=== PATIENT | female | born 1965 | race Hispanic/Latino ===

== ENCOUNTER 2017-10-26 20:30 | Emergency (ER) | payer MEDICARE ==
[2017-10-26 21:48] VITALS: BP 129/68
[2017-10-26 22:05] LABS: Basophils # (Auto) 0.1 K/mm3 (0.0-0.1); Basophils % (Auto) 0.6 % (0.0-1.8); Eosinophils # (Auto) 0.3 K/mm3 (0.0-0.4); Eosinophils % (Auto) 1.6 % (0.0-4.3); Hematocrit 45.3 % (30.3-42.9); Hemoglobin 15.3 gm/dl (10.1-14.3); Lymphocytes # (Auto) 4.1 K/mm3 (1.2-5.4); Lymphocytes % (Auto) 24.8 % (13.4-35.0); Mean Corpuscular HGB Conc 34 % (30-34); Mean Corpuscular Hemoglobin 31 pg (28-32); Mean Corpuscular Volume 90 fl (79-97); Monocytes # (Auto) 0.7 K/mm3 (0.0-0.8); Monocytes % (Auto) 4.4 % (0.0-7.3); Platelet Count 303 K/mm3 (140-440); Red Blood Count 5.01 M/mm3 (3.65-5.03); Red Cell Distribution Width 13.4 % (13.2-15.2)
[2017-10-26 22:32] LABS: Alanine Aminotransferase 20 units/L (7-56); Albumin 3.9 g/dL (3.9-5); BUN/Creatinine Ratio 30; Blood Urea Nitrogen 12 mg/dL (7-17); Calcium 9.2 mg/dL (8.4-10.2); Hemolysis Index 1
[2017-10-27] MEDS ORDERED: NACL 0.9% 500 ML 500 ML IV ONE (04:07)
--- NOTE | 2017-10-27 04:08 | Emergency Department Report ---
HPI - General Chief Complaint: Dizziness Time Seen by Provider: 10/27/17 04:00 - HPI HPI: The patient is a 52-year-old female who presents for evaluation of dizziness. The patient reports chronic episodes of dizziness for many years, and recurrence of dizziness for the past 3 months. She states that 5 days ago she experienced worsening of dizziness, currently severe, exacerbated with position changes, improved with supine positioning and rest, The patient denies fever, headache, neck pain, paresthesias, focal motor weakness, blurry vision, ear pain , tinnitus, chest pain, hemoptysis, dyspnea, abdominal pain, confusion or altered mental status, or recent URI or diarrhea. ED Past Medical Hx - Past Medical History Hx Hypertension: Yes (22YRS) Hx Congestive Heart Failure: No Hx Diabetes: Yes Hx Deep Vein Thrombosis: Yes Hx Pulmonary Embolism: Yes Hx GERD: Yes Hx Psychiatric Treatment: Yes (depression) Hx Asthma: No Hx COPD: No Additional medical history: Hypercholesterolemia - Surgical History Hx Pacemaker: No Additional Surgical History: Hx. , L AKA - Social History Smoking Status: Current Every Day Smoker Substance Use Type: None - Medications Home Medications: Home Medications Medication Instructions Recorded Confirmed Last Taken Type Docusate Sodium [Colace CAP] 100 mg PO BID #1 capsule 07/20/16 07/27/16 Unknown Rx Famotidine [Pepcid] 20 mg PO BID #60 tablet 07/20/16 07/28/16 07/23/16 Rx Gabapentin [Neurontin] 300 mg PO Q8HR #90 capsule 07/20/16 07/28/16 07/27/16 Rx HYDROcodone/APAP 7.5-325 [[place] 1 each PO Q6H PRN #30 tablet 07/20/16 07/28/16 07/24/16 Rx 7.5-325 mg TAB] Hydrochlorothiazide [HCTZ] 25 mg PO QDAY #30 tablet 07/20/16 07/28/16 07/27/16 Rx Lisinopril [Zestril TAB] 20 mg PO QDAY #30 tablet 07/20/16 07/28/16 07/28/16 Rx Rivaroxaban [Xarelto] 15 mg PO BIDDIAB #5 tablet 07/20/16 07/28/16 07/26/16 Rx Sennosides Tab [Senokot] 8.6 mg PO Q12H PRN #1 tablet 07/20/16 07/28/16 Unknown Rx glyBURIDE [Diabeta] 10 mg PO BIDDIAB #60 tablet 07/20/16 07/28/16 07/27/16 Rx Clindamycin [Clindamycin CAP] 450 mg PO TID 07/27/16 07/27/16 Unknown History Rivaroxaban [Xarelto] 20 mg PO QDAY 07/27/16 07/28/16 07/26/16 History Meclizine [Antivert] 25 mg PO TID PRN #20 tablet 10/27/17 Unknown Rx ED Review of Systems ROS: Stated complaint: DIZZINESS Other details as noted in HPI Constitutional: reports dizziness denies: fever ENT: denies: throat or neck pain Respiratory: denies: cough, shortness of breath Cardiovascular: denies: chest pain Endocrine: denies unexplained weight loss or gain Gastrointestinal: denies: abdominal pain, nausea Genitourinary: denies: dysuria Musculoskeletal: denies: leg swelling Skin: denies: rash Neurological: denies: headache Hematological/Lymphatic: denies: easy bleeding or easy bruising Psych: denies sadness or hopelessness Physical Exam - Physical Exam Vital Signs: Vital Signs 10/26/17 10/27/17 21:43 04:04 Temperature 97.8 F Pulse Rate 72 Respiratory 16 20 Rate Blood Pressure 129/68 O2 Sat by Pulse 94 98 Oximetry Physical Exam: General: well-nourished, well-developed, no acute distress Head: Normocephalic, atraumatic Eyes: normal sclera, PERRL, EOM intact ENT: Mucous membranes are pale and dry Neck: trachea midline, neck supple, No neck stiffness, no cervical adenopathy Respiratory: Breath sounds equal bilaterally, no wheezing, rales, or rhonchi Cardio: S1 and S2 present, no murmurs, rubs, gallops, capillary refill is delayed Abdomen: Normoactive bowel sounds, soft abdomen, no rigidity, no guarding or rebound tenderness Musc: No pitting edema Skin: No rash Neuro: alert oriented x4, normal cognition, speech normal, no facial drooping, no uvula or tongue deviation on protrusion, no deficit with rotation of neck or shoulder shrug, no obvious gross motor deficit in the upper or lower extremities with flexion or extension at the shoulder, elbow, wrist, hip, knee, or ankle bilaterally, no obvious gross sensation deficit to crude touch or 2 pt discrimination, 2+ symmetric reflexes on DTR testing, no coordination deficit with [id number] or yehs-[id number] testing, Babinski downgoing, patient able to to ambulate without abnormal gait Psych: Normal affect ED Course Vital Signs 10/26/17 10/27/17 21:43 04:04 Temperature 97.8 F Pulse Rate 72 Respiratory 16 20 Rate Blood Pressure 129/68 O2 Sat by Pulse 94 98 Oximetry ED Medical Decision Making - Lab Data Result diagrams: 10/26/17 21:51 10/26/17 21:51 - Medical Decision Making The patient was seen and examined by myself. The patient is placed on a nurse monitoring and continuous pulse ox. On initial evaluation, the patient was found to be in no distress. Evaluation orders were placed. The patient is given 2 L normal saline fluid bolus for treatment of dehydration. Lab results reveal a mildly elevated glucose of 144, and elevated hemoglobin and hematocrit , consistent with hemoconcentration and exam findings of dehydration, and otherwise labs were grossly unremarkable. The patient was reevaluated and reported that their symptoms were markedly improved. The patient is stable for discharge with outpatient follow-up. The patient is given follow-up and return instructions. The patient expressed understanding and agreed with the plan. The patient is discharged in stable condition. Critical care attestation.: If time is entered above; I have spent that time in minutes in the direct care of this critically ill patient, excluding procedure time. ED Disposition Clinical Impression: Dehydration, Orthostatic dizziness, Acute hyperglycemia Disposition: - TO HOME OR SELFCARE Is pt being admited?: No Does the pt Need Aspirin: No Condition: Stable Instructions: Dehydration (ED), Dizziness (ED), Diabetic Hyperglycemia (ED) Prescriptions: Meclizine [Antivert] 25 mg PO TID PRN #20 tablet PRN Reason: Vertigo Referrals: TAE GAMA MD [Primary Care Provider] - 3-5 Days Time of Disposition: 04:08
== END 2017-10-27 06:03 | disposition home or self-care (01) ==
LOC: ED 20:30
DX: E86.0 Dehydration (principal); E11.65 Type 2 diabetes mellitus with hyperglycemia; R42 Dizziness and giddiness; I10 Essential (primary) hypertension; F32.9 Major depressive disorder, single episode, unspecified; K21.9 Gastro-esophageal reflux disease without esophagitis; F17.200 Nicotine dependence, unspecified, uncomplicated; Z86.718 Personal history of other venous thrombosis and embolism; Z86.711 Personal history of pulmonary embolism
CPT/HCPCS: 36415; 80053; 85025; 93005; 93010; 96360; 99284; J7040

== ENCOUNTER 2019-08-18 08:53 | Inpatient (IN) | payer MEDICARE ==
[2019-08-18] MEDS ORDERED: ALBUTEROL 2.5 MG/3 ML NEBU IH ONE (09:03)
[2019-08-18] MEDS ORDERED: MAGNESIUM SULFATE 2 GM/50 ML BAG IV ONE (09:03)
[2019-08-18] MEDS ORDERED: IPRATROPIUM 0.02% NEBU 2.5 ML IH ONE (09:03)
--- NOTE | 2019-08-18 09:15 | Emergency Department Report ---
ED Shortness of Breath HPI - General Stated Complaint: RAFFAELE Time Seen by Provider: 08/18/19 09:02 Source: patient Mode of arrival: Stretcher Limitations: No Limitations - History of Present Illness Initial Comments: 54-year-old female with a past medical history of COPD, PE (on Xarelto and compliant as per pt), hypertension, diabetes, anxiety, and other psychiatric disorder presents to the hospital with shortness of breath. EMS reports that patient in respiratory distress on the scene and also somewhat combative. Glucose 217. She received Versed 2.5 mg, Solu-Medrol 125 mg, and albuterol 10 mg. Pt denies home oxygen use. She initially presents in respiratory distress, with audible wheezing, and room air saturation of 42%. Patient placed on supplemental oxygen via nonrebreather then BiPAP after arrival. She has paperwork from recent visit to [facility] COPD exacerbation. She was duo nebs, Levaquin, and prednisone. That was on BiPAP for about 15 minutes before taking it off. She is more alert and responsive. BiPAP discontinued and patient provided additional treatment including nebs. States she's been short of breath for "a while". Has cough prodcutive of yellow and clear sputum. Denies fever. Has chest pain "sometimes". Repeatedly asking for water. Pt states she has not yet filled her recently prescribed medications. She is unsure if she's been intubated in the past. - Related Data Home Medications Medication Instructions Recorded Confirmed Last Taken Clindamycin [Clindamycin CAP] 450 mg PO TID 07/27/16 07/27/16 Unknown Rivaroxaban [Xarelto] 20 mg PO QDAY 07/27/16 07/28/16 07/26/16 Previous Rx's Medication Instructions Recorded Last Taken Type Docusate Sodium [Colace CAP] 100 mg PO BID #1 capsule 07/20/16 Unknown Rx Famotidine [Pepcid] 20 mg PO BID #60 tablet 07/20/16 07/23/16 Rx Gabapentin 300 mg PO Q8HR #90 capsule 07/20/16 07/27/16 Rx HYDROcodone/APAP 7.5-325 [[place] 1 each PO Q6H PRN #30 tablet 07/20/16 07/24/16 Rx 7.5-325 mg TAB] Lisinopril [Zestril TAB] 20 mg PO QDAY #30 tablet 07/20/16 07/28/16 Rx Rivaroxaban [Xarelto] 15 mg PO BIDDIAB #5 tablet 07/20/16 07/26/16 Rx Sennosides Tab [Senokot] 8.6 mg PO Q12H PRN #1 tablet 07/20/16 Unknown Rx glyBURIDE [Diabeta] 10 mg PO BIDDIAB #60 tablet 07/20/16 07/27/16 Rx hydroCHLOROthiazide [HCTZ] 25 mg PO QDAY #30 tablet 07/20/16 07/27/16 Rx Meclizine [Antivert] 25 mg PO TID PRN #20 tablet 10/27/17 Unknown Rx Allergies Allergy/AdvReac Type Severity Reaction Status Date / Time No Known Allergies Allergy Verified 08/18/19 10:10 ED Review of Systems ROS: Stated complaint: RAFFAELE Other details as noted in HPI Comment: All other systems reviewed and negative ED Past Medical Hx - Past Medical History Hx Hypertension: Yes (22YRS) Hx Congestive Heart Failure: No Hx Diabetes: Yes Hx Deep Vein Thrombosis: Yes Hx Pulmonary Embolism: Yes Hx GERD: Yes Hx Psychiatric Treatment: Yes (depression) Hx Asthma: No Hx COPD: No Additional medical history: Hypercholesterolemia - Surgical History Hx Pacemaker: No Additional Surgical History: Hx. , L AKA - Social History Smoking Status: Current Every Day Smoker Substance Use Type: None - Medications Home Medications: Home Medications Medication Instructions Recorded Confirmed Last Taken Type Docusate Sodium [Colace CAP] 100 mg PO BID #1 capsule 07/20/16 07/27/16 Unknown Rx Famotidine [Pepcid] 20 mg PO BID #60 tablet 07/20/16 07/28/16 07/23/16 Rx Gabapentin 300 mg PO Q8HR #90 capsule 07/20/16 07/28/16 07/27/16 Rx HYDROcodone/APAP 7.5-325 [[place] 1 each PO Q6H PRN #30 tablet 07/20/16 07/28/16 07/24/16 Rx 7.5-325 mg TAB] Lisinopril [Zestril TAB] 20 mg PO QDAY #30 tablet 07/20/16 07/28/16 07/28/16 Rx Rivaroxaban [Xarelto] 15 mg PO BIDDIAB #5 tablet 07/20/16 07/28/16 07/26/16 Rx Sennosides Tab [Senokot] 8.6 mg PO Q12H PRN #1 tablet 07/20/16 07/28/16 Unknown Rx glyBURIDE [Diabeta] 10 mg PO BIDDIAB #60 tablet 07/20/16 07/28/16 07/27/16 Rx hydroCHLOROthiazide [HCTZ] 25 mg PO QDAY #30 tablet 07/20/16 07/28/16 07/27/16 R x Clindamycin [Clindamycin CAP] 450 mg PO TID 07/27/16 07/27/16 Unknown History Rivaroxaban [Xarelto] 20 mg PO QDAY 07/27/16 07/28/16 07/26/16 History Meclizine [Antivert] 25 mg PO TID PRN #20 tablet 10/27/17 Unknown Rx ED Physical Exam - General Limitations: Altered Mental Status (intially) - Other Other exam information: General: Positive respiratory distress Head: Atraumatic Eyes: normal appearance ENT: Moist mucous membranes Neck: Normal appearance, no midline tenderness Chest: Tachypnea, wheezing, accessory muscle use CV: Regular rate and rhythm Abdomen: Soft, normal bowel sounds, nontender, nondistended, no rebound or guarding Back: Normal inspection Extremity: Normal inspection infection, left AKA Neuro: Initially lethargic but then became alert with oxygenation, no facial asymmetry, speech clear, no gross motor sensory deficit Psych: Appropriate behavior Skin: No rash ED Course Vital Signs 08/18/19 08/18/19 09:16 09:22 Temperature 98.3 F Pulse Rate 147 H Pulse Rate [ 80 Left Lower Lobe ] Pulse Rate [ 98 H Posterior Right Lower Lobe] Respiratory 24 Rate Respiratory 32 H Rate [Left Lower Lobe] Respiratory 35 H Rate [Posterior Right Lower Lobe] Blood Pressure 150/82 O2 Sat by Pulse 44 L Oximetry - Reevaluation(s) Reevaluation #1: 08/18/19 10:17 hr now 119, sinus tach, breathing is improved. able to speak in sentences. - Consultations Consultation #1: 08/18/19 10:19 Case d/w Dr Gonzalez regarding elevated trop. no cp or acute ekg changes. consult ordered - ABG Interpretation Ph: 7.381 PCO2: 37 PO2: 59 Bicarbonate: 22 Interpretation: other (hypoxia) ED Medical Decision Making - Lab Data Result diagrams: 08/18/19 09:18 08/18/19 09:18 Lab Results 08/18/19 08/18/19 08/18/19 Range/Units 09:18 09:18 10:12 WBC 35.6 H (4.5-11.0) K/mm3 RBC 4.58 (3.65-5.03) M/mm3 Hgb 11.9 (10.1-14.3) gm/dl Hct 39.0 (30.3-42.9) % MCV 85 (79-97) fl MCH 26 L (28-32) pg MCHC 31 (30-34) % RDW 15.8 H (13.2-15.2) % Plt Count 563 H (140-440) K/mm3 Lymph # Checkout Operator VBG pH 7.348 (7.320-7.420) Sodium 141 (137-145) mmol/L Potassium 3.9 (3.6-5.0) mmol/L Chloride 101.1 (98-107) mmol/L Carbon Dioxide 19 L (22-30) mmol/L Anion Gap 25 mmol/L BUN 20 H (7-17) mg/dL Creatinine 0.8 (0.7-1.2) mg/dL Estimated GFR > 60 ml/min BUN/Creatinine Ratio 25 % Glucose 441 H (65-100) mg/dL Calcium 8.8 (8.4-10.2) mg/dL Troponin T 0.275 H* (0.00-0.029) ng/mL NT-Pro-B Natriuret Pep 2047 H (0-900) pg/mL Triglycerides 170 H (2-149) mg/dL Cholesterol 155 (50-199) mg/dL LDL Cholesterol Direct 99 (50-130) mg/dL HDL Cholesterol 45 (40-59) mg/dL Cholesterol/HDL Ratio 3.44 % - EKG Data -: EKG Interpreted by [place] EKG shows normal: sinus rhythm Rate: tachycardia (119) - EKG Data When compared to previous EKG there are: no significant change - Radiology Data Radiology results: report reviewed CHEST 1 VIEW INDICATION / CLINICAL INFORMATION: sob. COMPARISON: Chest radiograph 07/22/2016 FINDINGS: SUPPORT DEVICES: None. HEART / MEDIASTINUM: No significant abnormality. LUNGS / PLEURA: Left basilar airspace opacity. The right lung is clear. No pneumothorax. ADDITIONAL FINDINGS: No significant additional findings. IMPRESSION: 1. Left basilar pulmonary opacity worrisome for pneumonia in the appropriate clinical setting. A superimposed small left pleural effusion is possible. Recommend follow-up radiograph in 6-10 weeks to ensure resolution. - Medical Decision Making copd exacerbation with significant hypoxia and alteration of mental status upon arrival Mental status and symptoms quickly improved with supplemental oxygenation and a brief duration of BiPAP treatment Persistent hypoxic and wheezing after albuterol, Solu-Medrol, and magnesium. No signs of CO2 retention ABG. Elevated trop, ASA provided Unchanged EKG, cardiology consulted no cp in ed states compliant with xarelto Leukocytosis As per medical record history of leukocytosis in the past Blood cultures provided, Rocephin and azithromycin for infiltrate on x-ray Also possibility of CHF given her elevated BNP and effusion possible recent steroid use hospitalist to admit - Differential Diagnosis COPD, CHF, hypertension Critical Care Time: No Critical care attestation.: If time is entered above; I have spent that time in minutes in the direct care of this critically ill patient, excluding procedure time. ED Disposition Clinical Impression: Pneumonia, COPD exacerbation, Leukocytosis, Hyperglycemia, Pleural effusion, Hypoxia, Elevated troponin, Anticoagulant long-term use, Hx of pulmonary embolus Disposition: -09 OP ADMIT IP TO THIS HOSP Is pt being admited?: Yes Condition: Stable Time of Disposition: 10:54 (Dr Aguilar/hosp)
[2019-08-18 09:39] LABS: Mean Corpuscular HGB Conc 31 % (30-34); Mean Corpuscular Volume 85 fl (79-97); Platelet Count 563 K/mm3 (140-440); Red Blood Count 4.58 M/mm3 (3.65-5.03); Red Cell Distribution Width 15.8 % (13.2-15.2)
[2019-08-18 09:54] LABS: BUN/Creatinine Ratio 25; Blood Urea Nitrogen 20 mg/dL (7-17); Calcium 8.8 mg/dL (8.4-10.2); Hemolysis Index 5
--- NOTE | 2019-08-18 09:56 | XRay Report ---
CHEST 1 VIEW INDICATION / CLINICAL INFORMATION: sob. COMPARISON: Chest radiograph 07/22/2016 FINDINGS: SUPPORT DEVICES: None. HEART / MEDIASTINUM: No significant abnormality. LUNGS / PLEURA: Left basilar airspace opacity. The right lung is clear. No pneumothorax. ADDITIONAL FINDINGS: No significant additional findings. IMPRESSION: 1. Left basilar pulmonary opacity worrisome for pneumonia in the appropriate clinical setting. A supe rimposed small left pleural effusion is possible. Recommend follow-up radiograph in 6-10 weeks to ens ure resolution. Signer Name: Elizabeth Lara MD Signed: 08/18/2019 9:52 AM Workstation Name: [id number]
[2019-08-18 10:02] LABS: Hemoglobin 11.9 gm/dl (10.1-14.3)
[2019-08-18] MEDS ORDERED: ASPIRIN 325 MG TAB PO ONE (10:04)
[2019-08-18] MEDS ORDERED: cefTRIAXone/NS 1 GM/50 ML 1 GM/50 ML BAG IV ONE (10:07)
[2019-08-18] MEDS ORDERED: AZITHROMYCIN 500 MG in SODIUM CHLORIDE 0.9% 250ML 250 ML IV ONE (10:07)
[2019-08-18] MEDS ORDERED: INSULIN REGULAR, HUMAN 100 UNITS/1 ML IV ONE (10:08)
[2019-08-18 10:16] LABS: Chol/HDL Ratio 3.44 %; HDL Cholesterol 45 mg/dL (40-59); LDL Cholesterol,Direct 99 mg/dL (50-130)
[2019-08-18 10:49] LABS: INR 1.1 (0.87-1.13)
[2019-08-18 10:50] LABS: Partial Thromboplastin Time 21.9 Sec. (24.2-36.6)
[2019-08-18 10:52] LABS: Band Neutrophils # (Manual) 1.1 K/mm3; Basophils % (Manual) 0 % (0.0-1.8); Eosinophils % (Manual) 0 % (0.0-4.3); Total Cells Counted 100
[2019-08-18 10:53] LABS: Anisocytosis 1+
--- NOTE | 2019-08-18 10:53 | History and Physical Report ---
History of Present Illness Chief complaint: Its hard to breathe History of present illness: 54 YO Female with Obesity Hypoventilation Syndrome, HTN, DM, Schizophrenia, Nicotine Dependence, COPD, DVT/PE on Therapeutic Anticoagulation with Eliquis presents to ED for evaluation. Pt states that she has experienced difficulty breathing over the past 1 day with progressively worsening symptoms over the same time frame. Pt acknowledges increased productive cough with yellow sputum, dypsnea on exertion, dypsnea at rest. EMS notified, and upon arrival the patient was found to be in distress. Pt found to have pulse oximetry of 44% on Room Air. Pt placed on supplemental oxygen and transported to [facility]. Pt seen and evaluated in ED and found to have Acute Hypoxemic Respiratory Failure, Pneumonia complicated by Pleural Effusion, Sepsis, COPD, as well as NSTEMI. Pt admitted to Telemetry and initiated on Sepsis/Pneumonia Protocols. Pt denies fever, chills, CP, palpitations, syncope, BRBPR, Hemoptysis, Unilateral leg swelling, calf pain, prolonged travel, or recent ill contacts. Prior admission on 06/24/16 reviewed. All medication listed at time of admission was reconciled. Past History Past Medical History: other (see HPI) Past Surgical History: Other (Left AKA, D&C) Social history: , smoking. denies: alcohol abuse, prescription drug abuse Family history: no significant family history (reviewed) Medications and Allergies Allergies Allergy/AdvReac Type Severity Reaction Status Date / Time No Known Allergies Allergy Verified 08/18/19 10:10 Home Medications Medication Instructions Recorded Confirmed Last Taken Type Docusate Sodium [Colace CAP] 100 mg PO BID #1 capsule 07/20/16 07/27/16 Unknown Rx Famotidine [Pepcid] 20 mg PO BID #60 tablet 07/20/16 07/28/16 07/23/16 Rx HYDROcodone/APAP 7.5-325 [[place] 1 each PO Q6H PRN #30 tablet 07/20/16 07/28/16 07/24/16 Rx 7.5-325 mg TAB] Lisinopril [Zestril TAB] 20 mg PO QDAY #30 tablet 07/20/16 08/18/19 07/28/16 Rx Sennosides Tab [Senokot] 8.6 mg PO Q12H PRN #1 tablet 07/20/16 07/28/16 Unknown Rx glyBURIDE [Diabeta] 10 mg PO BIDDIAB #60 tablet 07/20/16 07/28/16 07/27/16 Rx hydroCHLOROthiazide [HCTZ] 25 mg PO QDAY #30 tablet 07/20/16 08/18/19 07/27/16 Rx Clindamycin [Clindamycin CAP] 450 mg PO TID 07/27/16 07/27/16 Unknown History Rivaroxaban [Xarelto] 20 mg PO QDAY 07/27/16 08/18/19 07/26/16 History Meclizine [Antivert] 25 mg PO TID PRN #20 tablet 10/27/17 Unknown Rx Furosemide [Lasix TAB] 08/18/19 Unknown History Furosemide [Lasix TAB] 1 tab PO DAILY 08/18/19 08/18/19 Unknown History Gabapentin 1 cap PO BID 08/18/19 08/18/19 Unknown History Insulin Glargine,Hum.rec.anlog 40 units SUB-Q DAILY 08/18/19 08/18/19 Unknown History [Lantus Solostar] Nystatin Cream [Mycostatin Cream] 08/18/19 Unknown History Nystatin Cream [Mycostatin Cream] 1 dose BID 08/18/19 08/18/19 Unknown History Omeprazole 1 cap PO DAILY 08/18/19 08/18/19 Unknown History Pravastatin [Pravachol] 1 tab PO DAILY 08/18/19 08/18/19 Unknown History Rivaroxaban [Xarelto] 08/18/19 Unknown History hydrOXYzine HCL [Atarax] 1 tab PO Q8HR PRN 08/18/19 08/18/19 Unknown History Active Meds: Active Medications Azithromycin 500 mg/ Sodium (Chloride) 250 mls @ 250 mls/hr IV ONCE ONE; Protocol Stop: 08/18/19 11:06 Review of Systems Constitutional: no weight loss, no weight gain, no fever, no chills Ears, nose, mouth and throat: no ear pain, no ear discharge, no tinnitis, no decreased hearing, no nasal congestion Breasts: no change in shape, no swelling, no mass Cardiovascular: no chest pain, no orthopnea, no palpitations, no rapid/irregular heart beat Respiratory: cough, cough with sputum, excessive sputum, shortness of breath, dyspnea on exertion, no congestion, no pleurisy, no pain on inspiration Gastrointestinal: no nausea, no vomiting, no diarrhea, no constipation, no change in bowel habits Genitourinary Female: no pelvic pain, no flank pain, no menorrhagia, no dysuria, no urinary frequency, no urgency Rectal: no pain, no incontinence, no bleeding Musculoskeletal: no neck stiffness, no neck pain, no shooting arm pain, no low back pain, no shooting leg pain Integumentary: no rash, no pruritis, no redness, no sores, no wounds Neurological: no paralysis, no weakness, no parathesias, no numbness, no tingling, no seizures Psychiatric: no anxiety, no memory loss, no change in sleep habits, no hypersomnia, no change in libido, no suicidal ideation Endocrine: no cold intolerance, no heat intolerance, no polyphagia, no polydipsia, no polyuria Hematologic/Lymphatic: no easy bruising, no easy bleeding, no lymphedema Allergic/Immunologic: no urticaria, no allergic rhinitis, no anaphylaxis Exam - Constitutional Vitals: Temp Pulse Resp BP Pulse Ox 98.3 F 98 H 35 H 150/82 44 L 08/18/19 09:16 08/18/19 09:22 08/18/19 09:22 08/18/19 09:16 08/18/19 09:16 General appearance: Present: mild distress, obese - EENT Eyes: Present: PERRL ENT: hearing intact, clear oral mucosa - Neck Neck: Present: supple, normal ROM - Respiratory Respiratory effort: labored, accessory muscle use Respiratory: bilateral: diminished, rhonchi - Cardiovascular Heart Sounds: Present: S1 & S2. Absent: rub, click - Extremities Extremities: pulses symmetrical, No edema Peripheral Pulses: within normal limits - Abdominal General gastrointestinal: Present: soft, non-tender, non-distended, normal bowel sounds Female genitourinary: Present: normal - Integumentary Integumentary: Present: clear, warm, dry - Musculoskeletal Musculoskeletal: generalized weakness - Psychiatric Psychiatric: appropriate mood/affect, intact judgment & insight - Neurologic Neurologic: CNII-XII intact, moves all extremities Results - Labs CBC & Chem 7: 08/18/19 09:18 08/18/19 09:18 Labs: Abnormal lab results 08/18/19 08/18/19 08/18/19 Range/Units 09:18 09:18 10:12 WBC 35.6 H (4.5-11.0) K/mm3 MCH 26 L (28-32) pg RDW 15.8 H (13.2-15.2) % Plt Count 563 H (140-440) K/mm3 APTT 21.9 L (24.2-36.6) Sec. Carbon Dioxide 19 L (22-30) mmol/L BUN 20 H (7-17) mg/dL Glucose 441 H (65-100) mg/dL Lactic Acid (0.7-2.0) mmol/L Troponin T 0.275 H* (0.00-0.029) ng/mL NT-Pro-B Natriuret Pep 2047 H (0-900) pg/mL Triglycerides 170 H (2-149) mg/dL 08/18/19 Range/Units 10:12 WBC (4.5-11.0) K/mm3 MCH (28-32) pg RDW (13.2-15.2) % Plt Count (140-440) K/mm3 APTT (24.2-36.6) Sec. Carbon Dioxide (22-30) mmol/L BUN (7-17) mg/dL Glucose (65-100) mg/dL Lactic Acid 2.40 H* (0.7-2.0) mmol/L Troponin T (0.00-0.029) ng/mL NT-Pro-B Natriuret Pep (0-900) pg/mL Triglycerides (2-149) mg/dL Assessment and Plan - Patient Problems (1) Sepsis Current Visit: Yes Status: Acute Qualifiers: Severe sepsis shock status: unspecified Plan to address problem: Admit to telemetry: Sepsis protocol: IVF resuscitation therapy, IV antibiotic therapy, serial lactic acid, blood cultures, chest x ray, urinalysis, CBC, CMP, (2) Acute respiratory failure with hypoxemia Current Visit: Yes Status: Acute Plan to address problem: Admit to telemetry, chest x ray, supplemental oxygen, ABG, nebulizer therapy, pulse oximetry, (3) Pneumonia Current Visit: Yes Status: Acute Qualifiers: Laterality: left Plan to address problem: Pneumonia protocol, IV antibiotic therapy, pulse oximetry, chest x ray, nebulizer therapy, blood cultures, (4) NSTEMI (non-ST elevated myocardial infarction) Current Visit: Yes Status: Acute Plan to address problem: Admit to telemetry, Cardiology consulted in ED, heparin drip, serial cardiac e nzymes, echo, morphine, supplemental oxygen, nitro, aspirin. (5) COPD (chronic obstructive pulmonary disease) Current Visit: Yes Status: Acute Qualifiers: Chronic bronchitis type: unspecified Plan to address problem: supplemental oxygen, nebulizer therapy, chest x ray, NIPPV, pulse oximetry (6) Nicotine dependence with withdrawal Current Visit: Yes Status: Acute Qualifiers: Nicotine product type: cigarettes Qualified Code(s): F17.213 - Nicotine dependence, cigarettes, with withdrawal Plan to address problem: Smoking cessation counseling, +15min, supportive care. (7) HTN (hypertension) Current Visit: Yes Status: Acute Qualifiers: Hypertension type: essential hypertension Qualified Code(s): I10 - Essential (primary) hypertension Plan to address problem: Monitor BP q shift, continue medical management. (8) Diabetes Current Visit: Yes Status: Acute Plan to address problem: ADA diet, insulin, accu check, hypoglycemia protocol (9) History of pulmonary embolism Current Visit: Yes Status: Acute Plan to address problem: continue therapeutic anticoagulation, (10) Acidosis Current Visit: Yes Status: Acute Plan to address problem: IV bicarbonate therapy, repeat bmp in am, treat sepsis (11) DVT prophylaxis Current Visit: Yes Status: Acute Plan to address problem: SCD to LE while in bed, therapeutic anticoagulation
[2019-08-18] MEDS ORDERED: ONDANSETRON 4 MG/2 ML INJ IV PRN (10:54)
[2019-08-18] MEDS ORDERED: MECLIZINE 25 MG TAB PO PRN (10:57)
[2019-08-18] MEDS ORDERED: HYDROcodone/ACETAMINOPHEN 7.5-325MG TAB PO PRN (10:57)
[2019-08-18] MEDS ORDERED: SENNOSIDES 8.6 MG TAB PO PRN (10:57)
[2019-08-18] MEDS ORDERED: GABAPENTIN 300 MG CAP ONE (15:06)
[2019-08-18] MEDS ORDERED: SODIUM CHLORIDE 0.9% 1000 ML IV SOLN IV ONE (16:00)
[2019-08-18] MEDS ORDERED: DEXTROSE 50% IN WATER (25GM) 50 ML SYRINGE IV PRN (16:09)
[2019-08-18] MEDS: GABAPENTIN 300 MG CAP PO SCH ×2 (16:24→22:19)
[2019-08-18] MEDS ORDERED: INSULIN LISPRO 100 UNIT/ML SUB-Q SCH ×2 (16:30)
[2019-08-18] MEDS ORDERED: RIVAROXABAN 15 MG TAB PO SCH (17:00)
[2019-08-18] MEDS: INSULIN LISPRO 100 UNIT/ML SUB-Q SCH (17:40)
[2019-08-18] MEDS: SODIUM CHLORIDE 0.9% 1000 ML 1,000 ML IV SCH (17:41)
[2019-08-18] MEDS ORDERED: SODIUM BICARB 8.4% 50 MEQ/50 ML SYRINGE IV ONE (18:00)
[2019-08-18 18:52] LABS: Bacteria,Urine 3+ /HPF (Negative); Bilirubin,Urine NEG (Negative); Blood,Urine NEG (Negative); Color,Urine Yellow (Yellow); Mucus,Urine FEW /HPF; Protein,Urine <15 mg/dL mg/dL (Negative); Urobilinogen,Urine < 2.0 mg/dL (<2.0)
[2019-08-18] MEDS: HEPARIN/ 0.45% NACL DRIP 25,000 UNIT/500 ML BAG IV SCH (19:47)
[2019-08-18] MEDS: ALBUTEROL 2.5 MG/3 ML NEBU IH PRN (21:03)
[2019-08-18 21:38] LABS: Hematocrit 34.9 % (30.3-42.9); Hemoglobin 11.1 gm/dl (10.1-14.3)
[2019-08-18 21:49] LABS: INR 1.11 (0.87-1.13)
[2019-08-18 21:50] LABS: Partial Thromboplastin Time 26.4 Sec. (24.2-36.6)
[2019-08-18 22:14] LABS: Free T4 (Free Thyroxine) 1.19 ng/dL (0.76-1.46)
[2019-08-18] MEDS: FAMOTIDINE 20 MG TAB PO SCH (22:19)
[2019-08-18] MEDS: DOCUSATE SODIUM 100 MG CAP PO SCH (22:20)
[2019-08-19] MEDS: INSULIN LISPRO 100 UNIT/ML SUB-Q SCH ×5 (00:57→22:54)
[2019-08-19] MEDS: ALBUTEROL 2.5 MG/3 ML NEBU IH PRN ×3 (01:36→11:42)
[2019-08-19] MEDS: GABAPENTIN 300 MG CAP PO SCH ×3 (05:10→21:19)
[2019-08-19] MEDS: DOCUSATE SODIUM 100 MG CAP PO SCH ×2 (10:26→21:19)
[2019-08-19] MEDS: cefTRIAXone/NS 2 GM/100 ML 2 GM/100 ML BAG IV SCH (10:27)
[2019-08-19] MEDS: hydroCHLOROthiazide 25 MG TAB PO SCH (10:27)
[2019-08-19] MEDS: FAMOTIDINE 20 MG TAB PO SCH ×2 (10:27→21:19)
[2019-08-19] MEDS: LISINOPRIL 20 MG TAB PO SCH (10:28)
[2019-08-19] MEDS: ALPRAZolam 0.25 MG TAB PO PRN ×2 (11:48→21:19)
[2019-08-19] MEDS ORDERED: FLU VACC QUAD 2019-20 (3 YR UP)/PF 60 MCG/0.5 ML SYRINGE IM ONE (12:00)
[2019-08-19] MEDS ORDERED: PNEUMOCOCCAL 23 Valent 0.5 ML VIAL IM ONE (12:00)
--- NOTE | 2019-08-19 14:08 | Consultation ---
History of Present Illness Consult date: 08/19/19 Consult reason: elevated troponin History of present illness: This is a 54-year old woman with COPD who brought to this hospital with altered mental status and respiratory distress. She was initially treated with Bipap in the emergency department. A chest x-ray reports left basilar opacity concerning for pneumonia. Initial labs shows a WBC at 35,000, uncontrolled diabetes and lactic acidosis. Troponin has trended upwards. Patient denies chest pain and palpitations. An ECG is sinus tachycardia otherwise, no acute ischemic changes. Patient was recently discharged from [facility] with shortness of breath. Patient has a history of pulmonary embolism and is on Xarelto for oral anticoagulation. 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 Patient denies prior cardiac history and it is unclear if she had any recent cardiac workup done. Recent hospital records are not available for review. Past History Past Surgical History: Other (Left AKA, D&C) Social history: , smoking. denies: alcohol abuse, prescription drug a buse Family history: no significant family history (reviewed) Medications and Allergies Allergies Allergy/AdvReac Type Severity Reaction Status Date / Time No Known Allergies Allergy Verified 08/18/19 10:10 Home Medications Medication Instructions Recorded Confirmed Last Taken Type Docusate Sodium [Colace CAP] 100 mg PO BID #1 capsule 07/20/16 07/27/16 Unknown Rx Famotidine [Pepcid] 20 mg PO BID #60 tablet 07/20/16 07/28/16 07/23/16 Rx HYDROcodone/APAP 7.5-325 [[place] 1 each PO Q6H PRN #30 tablet 07/20/16 07/28/16 07/24/16 Rx 7.5-325 mg TAB] Lisinopril [Zestril TAB] 20 mg PO QDAY #30 tablet 07/20/16 08/18/19 07/28/16 Rx Sennosides Tab [Senokot] 8.6 mg PO Q12H PRN #1 tablet 07/20/16 07/28/16 Unknown Rx glyBURIDE [Diabeta] 10 mg PO BIDDIAB #60 tablet 07/20/16 07/28/16 07/27/16 Rx hydroCHLOROthiazide [HCTZ] 25 mg PO QDAY #30 tablet 07/20/16 08/18/1907/27/16 Rx Clindamycin [Clindamycin CAP] 450 mg PO TID 07/27/16 07/27/16 Unknown History Rivaroxaban [Xarelto] 20 mg PO QDAY 07/27/16 08/18/19 07/26/16 History Meclizine [Antivert] 25 mg PO TID PRN #20 tablet 10/27/17 Unknown Rx Furosemide [Lasix TAB] 08/18/19 Unknown History Furosemide [Lasix TAB] 1 tab PO DAILY 08/18/19 08/18/19 Unknown History Gabapentin 1 cap PO BID 08/18/19 08/18/19 Unknown History Insulin Glargine,Hum.rec.anlog 40 units SUB-Q DAILY 08/18/19 08/18/19 Unknown History [Lantus Solostar] Nystatin Cream [Mycostatin Cream] 08/18/19 Unknown History Nystatin Cream [Mycostatin Cream] 1 dose BID 08/18/19 08/18/19 Unknown History Omeprazole 1 cap PO DAILY 08/18/19 08/18/19 Unknown History Pravastatin [Pravachol] 1 tab PO DAILY 08/18/19 08/18/19 Unknown History Rivaroxaban [Xarelto] 08/18/19 Unknown History hydrOXYzine HCL [Atarax] 1 tab PO Q8HR PRN 08/18/19 08/18/19 Unknown History Active Meds: Active Medications Acetaminophen (Tylenol) 650 mg PO Q4H PRN PRN Reason: Pain MILD(1-3)/Fever >100.5/RAMIREZ Acetaminophen/Hydrocodone Bitart ([place] 7.5/325) 1 each PO Q6H PRN PRN Reason: Pain, Moderate (4-6) Albuterol (Proventil) 2.5 mg IH Q4HRT PRN PRN Reason: Shortness Of Breath Last Admin: 08/19/19 11:42 Dose: 2.5 mg Documented by: Alprazolam (Xanax) 0.25 mg PO Q8H PRN PRN Reason: Anxiety Last Admin: 08/19/19 11:48 Dose: 0.25 mg Documented by: Dextrose (D50w (25gm) Syringe) 50 ml IV Q30MIN PRN; Protocol PRN Reason: Hypoglycemia Docusate Sodium (Colace) 100 mg PO BID [facility] Last Admin: 08/19/19 10:26 Dose: 100 mg Documented by: Famotidine (Pepcid) 20 mg PO BID [facility] Last Admin: 08/19/19 10:27 Dose: 20 mg Documented by: Gabapentin (Gabapentin) 300 mg PO Q8HR [facility] Last Admin: 08/19/19 05:10 Dose: 300 mg Documented by: Hydrochlorothiazide (Hctz) 25 mg PO QDAY [facility] Last Admin: 08/19/19 10:27 Dose: Not Given Documented by: Ceftriaxone Sodium (Rocephin/Ns 2 Gm/100 Ml) 2 gm in 100 mls @ 200 mls/hr IV Q24HR [facility]; Protocol Last Admin: 08/19/19 10:27 Dose: 200 mls/hr Documented by: Azithromycin 500 mg/ Sodium (Chloride) 250 mls @ 250 mls/hr IV Q24H [facility]; Protocol Heparin Sodium/Sodium Chloride (Heparin/ 0.45% Nacl-25,000 Unit/500 Ml) 25,000 unit in 500 mls @ 20 mls/hr IV TITRATE [facility]; Protocol Last Titration: 08/19/19 12:02 Dose: 1,200 units/hr, 24 mls/hr Documented by: Sodium Chloride (Nacl 0.9% 1000 Ml) 1,000 mls @ 62 mls/hr IV DIRECT [facility] Last Admin: 08/18/19 17:41 Dose: 62 mls/hr Documented by: Insulin Human Lispro (Humalog) 0 unit SUB-Q ACHS [facility]AMZ[facility]; Protocol Last Admin: 08/19/19 12:47 Dose: 6 unit Documented by: Lisinopril (Zestril) 20 mg PO QDAY [facility] Last Admin: 08/19/19 10:28 Dose: Not Given Documented by: Meclizine HCl (Antivert) 25 mg PO TID PRN PRN Reason: Vertigo Ondansetron HCl (Zofran) 4 mg IV Q8H PRN PRN Reason: Nausea And Vomiting Senna (Senokot) 8.6 mg PO Q12H PRN PRN Reason: Laxative Effect Sodium Chloride (Sodium Chloride Flush Syringe 10 Ml) 10 ml IV BID [facility] Last Admin: 08/19/19 10:28 Dose: 10 ml Documented by: Sodium Chloride (Sodium Chloride Flush Syringe 10 Ml) 10 ml IV PRN PRN PRN Reason: LINE FLUSH Physical Examination Vital Signs Pulse Resp Pulse Ox 138 H 36 H 97 08/18/19 09:05 08/18/19 09:05 08/18/19 09:05 General appearance: no acute distress, obese HEENT: Positive: PERRL Neck: Positive: trachea midline Cardiac: Positive: Reg Rate and Rhythm Lungs: Positive: Decreased Breath Sounds Extremities: Present: Other (left AKA) Results 08/18/19 21:03 08/18/19 09:18 Coagulation 08/18/19 Range/Units 21:03 PT 14.2 (12.2-14.9) Sec. INR 1.11 (0.87-1.13) APTT 26.4 (24.2-36.6) Sec. CBC 08/18/19 Range/Units 21:03 Hgb 11.1 (10.1-14.3) gm/dl Hct 34.9 (30.3-42.9) % Plt Count 354 (140-440) K/mm3 Assessment and Plan Acute Respiratory failure chest x-ray reports left basilar opacity concerning for pneumonia AMS -resolved COPD Hypertension Diabetes Obesity Left AKA
--- NOTE | 2019-08-19 14:44 | Progress Note ---
Assessment and Plan Assessment and plan: Acute Respiratory failure. Etiology secondary to PNA and COPD LLL Pneumonia Chest x-ray reports left basilar opacity concerning for pneumonia Sepsis. Etiology sec to pneumonia. F/U cx and lactate Toxic metabolic encephalopathy. Ressolving COPD. Cont bronchodilators Hypertension. Home BP meds Diabetes Mellitus II. 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 PT/OT History Interval history: No new issues overnight Hospitalist Physical - Constitutional Vitals: Temp Pulse Resp BP Pulse Ox 98.4 F 122 H 24 189/153 8 L 08/19/19 11:19 08/19/19 11:46 08/19/19 11:46 08/19/19 11:19 08/19/19 11:46 General appearance: Present: no acute distress, obese - EENT Eyes: Present: PERRL, EOM intact ENT: hearing intact, clear oral mucosa, dentition normal - Neck Neck: Present: supple, normal ROM - Respiratory Respiratory effort: normal Respiratory: bilateral: CTA - Cardiovascular Rhythm: regular Heart Sounds: Present: S1 & S2. Absent: gallop, rub - Extremities Extremities: no ischemia, No edema, Full ROM - Abdominal General gastrointestinal: soft, non-tender, non-distended, normal bowel sounds - Integumentary Integumentary: Present: clear, warm, dry - Neurologic Neurologic: CNII-XII intact, moves all extremities Results - Labs CBC & Chem 7: 08/18/19 21:03 08/18/19 09:18 Labs: Laboratory Last Values WBC 35.6 K/mm3 (4.5-11.0) H 08/18/19 09:18 RBC 4.58 M/mm3 (3.65-5.03) 08/18/19 09:18 Hgb 11.1 gm/dl (10.1-14.3) 08/18/19 21:03 Hct 34.9 % (30.3-42.9) 08/18/19 21:03 MCV 85 fl (79-97) 08/18/19 09:18 MCH 26 pg (28-32) L 08/18/19 09:18 MCHC 31 % (30-34) 08/18/19 09:18 RDW 15.8 % (13.2-15.2) H 08/18/19 09:18 Plt Count 354 K/mm3 (140-440) 08/18/19 21:03 Lymph # Post Graduate Intern 08/18/19 09:18 Add Manual Diff Complete 08/18/19 09:18 Total Counted 100 08/18/19 09:18 Seg Neuts % (Manual) 67.0 % (40.0-70.0) 08/18/19 09:18 Band Neutrophils % 3.0 % 08/18/19 09:18 Lymphocytes % (Manual) 21.0 % (13.4-35.0) 08/18/19 09:18 Reactive Lymphs % (Man) 0 % 08/18/19 09:18 Monocytes % (Manual) 9.0 % (0.0-7.3) H 08/18/19 09:18 Eosinophils % (Manual) 0 % (0.0-4.3) 08/18/19 09:18 Basophils % (Manual) 0 % (0.0-1.8) 08/18/19 09:18 Metamyelocytes % 0 % 08/18/19 09:18 Myelocytes % 0 % 08/18/19 09:18 Promyelocytes % 0 % 08/18/19 09:18 Blast Cells % 0 % 08/18/19 09:18 Nucleated RBC % Not Reportable 08/18/19 09:18 Seg Neutrophils # Man 23.9 K/mm3 (1.8-7.7) H 08/18/19 09:18 Band Neutrophils # 1.1 K/mm3 08/18/19 09:18 Lymphocytes # (Manual) 7.5 K/mm3 (1.2-5.4) H 08/18/19 09:18 Abs React Lymphs (Man) 0.0 K/mm3 08/18/19 09:18 Monocytes # (Manual) 3.2 K/mm3 (0.0-0.8) H 08/18/19 09:18 Eosinophils # (Manual) 0.0 K/mm3 (0.0-0.4) 08/18/19 09:18 Basophils # (Manual) 0.0 K/mm3 (0.0-0.1) 08/18/19 09:18 Metamyelocytes # 0.0 K/mm3 08/18/19 09:18 Myelocytes # 0.0 K/mm3 08/18/19 09:18 Promyelocytes # 0.0 K/mm3 08/18/19 09:18 Blast Cells # 0.0 K/mm3 08/18/19 09:18 WBC Morphology Not Reportable 08/18/19 09:18 Hypersegmented Neuts Not Reportable 08/18/19 09:18 Hyposegmented Neuts Not Reportable 08/18/19 09:18 Hypogranular Neuts Not Reportable 08/18/19 09:18 Smudge Cells Not Reportable 08/18/19 09:18 Toxic Granulation Not Reportable 08/18/19 09:18 Toxic Vacuolation Not Reportable 08/18/19 09:18 Dohle Bodies Not Reportable 08/18/19 09:18 Pelger-Huet Anomaly Not Reportable 08/18/19 09:18 Farida Rods Not Reportable 08/18/19 09:18 Platelet Estimate Not Reportable 08/18/19 09:18 Clumped Platelets Not Reportable 08/18/19 09:18 Plt Clumps, EDTA Not Reportable 08/18/19 09:18 Large Platelets Not Reportable 08/18/19 09:18 Giant Platelets Not Reportable 08/18/19 09:18 Platelet Satelliting Not Reportable 08/18/19 09:18 Plt Morphology Comment Not Reportable 08/18/19 09:18 RBC Morphology Not Reportable 08/18/19 09:18 Dimorphic RBCs Not Reportable 08/18/19 09:18 Polychromasia Few 08/18/19 09:18 Hypochromasia Not Reportable 08/18/19 09:18 Poikilocytosis Not Reportable 08/18/19 09:18 Anisocytosis 1+ 08/18/19 09:18 Microcytosis Not Reportable 08/18/19 09:18 Macrocytosis Not Reportable 08/18/19 09:18 Spherocytes Not Reportable 08/18/19 09:18 Pappenheimer Bodies Not Reportable 08/18/19 09:18 Sickle Cells Not Reportable 08/18/19 09:18 Target Cells Not Reportable 08/18/19 09:18 Tear Drop Cells Not Reportable 08/18/19 09:18 Ovalocytes Not Reportable 08/18/19 09:18 Helmet Cells Not Reportable 08/18/19 09:18 Escalera-[place] Bodies Not Reportable 08/18/19 09:18 [place] Rings Not Reportable 08/18/19 09:18 Saeed Cells Not Reportable 08/18/19 09:18 Bite Cells Not Reportable 08/18/19 09:18 Crenated Cell Not Reportable 08/18/19 09:18 Elliptocytes Not Reportable 08/18/19 09:18 Acanthocytes (Spur) Not Reportable 08/18/19 09:18 Rouleaux Not Reportable 08/18/19 09:18 Hemoglobin C Crystals Not Reportable 08/18/19 09:18 Schistocytes Not Reportable 08/18/19 09:18 Malaria parasites Not Reportable 08/18/19 09:18 Wisam Bodies Not Reportable 08/18/19 09:18 Hem Pathologist Commnt No 08/18/19 09:18 PT 14.2 Sec. (12.2-14.9) 08/18/19 21:03 INR 1.11 (0.87-1.13) 08/18/19 21:03 APTT 26.4 Sec. (24.2-36.6) 08/18/19 21:03 Heparin Anti-Xa Level 0.16 U.I./ml (0.3-0.7) L 08/19/19 11:11 POC ABG pH 7.381 (7.35-7.45) 08/18/19 10:51 POC ABG pCO2 37.2 (35-45) 08/18/19 10:51 POC ABG pO2 59 (80-105) L 08/18/19 10:51 POC ABG HCO3 22.1 (22-26 mml/L) 08/18/19 10:51 POC ABG Total CO2 23 (23-27mmol/L) 08/18/19 10:51 POC ABG O2 Sat 90 08/18/19 10:51 POC ABG Base Excess -3 ((-2) - (+3)mmol/L) 08/18/19 10:51 VBG pH 7.348 (7.320-7.420) 08/18/19 10:12 FiO2 21 % 08/18/19 10:51 Sodium 141 mmol/L (137-145) 08/18/19 09:18 Potassium 3.9 mmol/L (3.6-5.0) 08/18/19 09:18 Chloride 101.1 mmol/L (98-107) 08/18/19 09:18 Carbon Dioxide 19 mmol/L (22-30) L 08/18/19 09:18 Anion Gap 25 mmol/L 08/18/19 09:18 BUN 20 mg/dL (7-17) H 08/18/19 09:18 Creatinine 0.8 mg/dL (0.7-1.2) 08/18/19 09:18 Estimated GFR > 60 ml/min 08/18/19 09:18 BUN/Creatinine Ratio 25 % 08/18/19 09:18 Glucose 441 mg/dL (65-100) H 08/18/19 09:18 POC Glucose 313 (70-105) H 08/19/19 11:41 Lactic Acid 1.60 mmol/L (0.7-2.0) 08/19/19 07:55 Calcium 8.8 mg/dL (8.4-10.2) 08/18/19 09:18 Magnesium 2.40 mg/dL (1.7-2.3) H 08/18/19 21:03 Troponin T 0.615 ng/mL (0.00-0.029) H* D 08/18/19 14:59 NT-Pro-B Natriuret Pep 2047 pg/mL (0-900) H 08/18/19 09:18 Triglycerides 170 mg/dL (2-149) H 08/18/19 09:18 Cholesterol 155 mg/dL (50-199) 08/18/19 09:18 LDL Cholesterol Direct 99 mg/dL (50-130) 08/18/19 09:18 HDL Cholesterol 45 mg/dL (40-59) 08/18/19 09:18 Cholesterol/HDL Ratio 3.44 % 08/18/19 09:18 TSH 0.719 mlU/mL (0.270-4.200) 08/18/19 21:03 Free T4 1.19 ng/dL (0.76-1.46) 08/18/19 21:03 Urine Color Yellow (Yellow) 08/18/19 18:24 Urine Turbidity Clear (Clear) 08/18/19 18:24 Urine pH 6.0 (5.0-7.0) 08/18/19 18:24 Ur Specific [place] 1.017 (1.003-1.030) 08/18/19 18:24 Urine Protein <15 mg/dl mg/dL (Negative) 08/18/19 18:24 Urine Glucose (UA) >=500 mg/dL (Negative) 08/18/19 18:24 Urine Ketones Tr mg/dL (Negative) 08/18/19 18:24 Urine Blood Neg (Negative) 08/18/19 18:24 Urine Nitrite Neg (Negative) 08/18/19 18:24 Urine Bilirubin Neg (Negative) 08/18/19 18:24 Urine Urobilinogen < 2.0 mg/dL (<2.0) 08/18/19 18:24 Ur Leukocyte Esterase Neg (Negative) 08/18/19 18:24 Urine WBC (Auto) 2.0 /HPF (0.0-6.0) 08/18/19 18:24 Urine RBC (Auto) 1.0 /HPF (0.0-6.0) 08/18/19 18:24 U Epithel Cells (Auto) 1.0 /HPF (0-13.0) 08/18/19 18:24 Urine Bacteria (Auto) 3+ /HPF (Negative) 08/18/19 18:24 Urine Mucus Few /HPF 08/18/19 18:24 Active Medications - Current Medications Current Medications: Generic Name Dose Route Start Last Admin Trade Name Freq PRN Reason Stop Dose Admin Acetaminophen 650 mg 08/18/19 10:54 Tylenol PO Q4H PRN Pain MILD(1-3)/Fever >100.5/RAMIREZ Acetaminophen/Hydrocodone Bitart 1 each 08/18/19 10:57 [place] 7.5/325 PO Q6H PRN Pain, Moderate (4-6) Albuterol 2.5 mg 08/18/19 10:54 08/19/19 11:42 Proventil IH 2.5 mg Q4HRT PRN Administration Shortness Of Breath Alprazolam 0.25 mg 08/19/19 11:39 08/19/19 11:48 Xanax PO 0.25 mg Q8H PRN Administration Anxiety Dextrose 50 ml 08/18/19 16:09 D50w (25gm) Syringe IV Q30MIN PRN Hypoglycemia Protocol Docusate Sodium 100 mg 08/18/19 22:00 08/19/19 10:26 Colace PO 100 mg BID HAMZAH Administration Famotidine 20 mg 08/18/19 22:00 08/19/19 10:27 Pepcid PO 20 mg BID HAMZAH Administration Gabapentin 300 mg 08/18/19 14:00 08/19/19 05:10 Gabapentin PO 300 mg Q8HR HAMZAH Administration Hydrochlorothiazide 25 mg 08/19/19 10:00 08/19/19 10:27 Hctz PO Not Given QDAY HAMZAH Ceftriaxone Sodium 2 gm in 100 mls @ 200 mls/hr 08/19/19 10:00 08/19/19 10:27 Rocephin/Ns 2 Gm/100 Ml IV 200 mls/hr Q24HR HAMZAH Administration Protocol Azithromycin 500 mg/ Sodium 250 mls @ 250 mls/hr 08/19/19 11:00 Chloride IV Q24H HAMZAH Protocol Heparin Sodium/Sodium Chloride 25,000 unit in 500 mls @ 20 mls/hr 08/18/19 17:00 08/19/19 12:02 Heparin/ 0.45% Nacl-25,000 Unit/500 Ml IV 1,200 units/hr TITRATE HAMZAH 24 mls/hr Titration Protocol 1,000 UNITS/HR Sodium Chloride 1,000 mls @ 62 mls/hr 08/18/19 17:00 08/18/19 17:41 Nacl 0.9% 1000 Ml IV 62 mls/hr DIRECT HAMZAH Administration Insulin Human Lispro 0 unit 08/19/19 07:30 08/19/19 12:47 Humalog SUB-Q 6 unit ACHS HAMZAH Administration Protocol Lisinopril 20 mg 08/19/19 10:00 08/19/19 10:28 Zestril PO Not Given QDAY HAMZAH Meclizine HCl 25 mg 08/18/19 10:57 Antivert PO TID PRN Vertigo Ondansetron HCl 4 mg 08/18/19 10:54 Zofran IV Q8H PRN Nausea And Vomiting Senna 8.6 mg 08/18/19 10:57 Senokot PO Q12H PRN Laxative Effect Sodium Chloride 10 ml 08/18/19 22:00 08/19/19 10:28 Sodium Chloride Flush Syringe 10 Ml IV 10 ml BID HAMZAH Administration Sodium Chloride 10 ml 08/18/19 10:54 Sodium Chloride Flush Syringe 10 Ml IV PRN PRN LINE FLUSH
[2019-08-19] MEDS: AZITHROMYCIN 500 MG in SODIUM CHLORIDE 0.9% 250ML 250 ML IV SCH (17:12)
[2019-08-19] MEDS: BUDESONIDE 0.5 MG/2 ML NEBU IH SCH (22:29)
[2019-08-19] MEDS: IPRATROPIUM/ALBUTEROL SULFATE 3 ML AMPUL.NEB IH SCH (22:29)
[2019-08-19] MEDS: ARFORMOTEROL 15 MCG/2 ML NEBU IH SCH (22:30)
[2019-08-19] MEDS ORDERED: INSULIN REGULAR, HUMAN 100 UNITS/1 ML IV ONE (22:51)
[2019-08-20] MEDS: GABAPENTIN 300 MG CAP PO SCH ×3 (05:38→21:41)
[2019-08-20 05:41] LABS: Basophils # (Auto) 0.1 K/mm3 (0.0-0.1); Basophils % (Auto) 0.8 % (0.0-1.8); Eosinophils # (Auto) 0.1 K/mm3 (0.0-0.4); Eosinophils % (Auto) 0.8 % (0.0-4.3); Hematocrit 32.6 % (30.3-42.9); Hemoglobin 10.6 gm/dl (10.1-14.3); Lymphocytes # (Auto) 4.3 K/mm3 (1.2-5.4); Lymphocytes % (Auto) 24.7 % (13.4-35.0); Mean Corpuscular HGB Conc 33 % (30-34); Mean Corpuscular Volume 82 fl (79-97); Monocytes # (Auto) 1.1 K/mm3 (0.0-0.8); Monocytes % (Auto) 6.2 % (0.0-7.3); Platelet Count 304 K/mm3 (140-440); Red Blood Count 3.96 M/mm3 (3.65-5.03); Red Cell Distribution Width 15.4 % (13.2-15.2)
[2019-08-20 06:02] LABS: BUN/Creatinine Ratio 30; Blood Urea Nitrogen 12 mg/dL (7-17); Calcium 8.1 mg/dL (8.4-10.2); Hemolysis Index 25
[2019-08-20] MEDS: BUDESONIDE 0.5 MG/2 ML NEBU IH SCH ×2 (08:35→21:31)
[2019-08-20] MEDS: ARFORMOTEROL 15 MCG/2 ML NEBU IH SCH ×2 (08:35→21:31)
[2019-08-20] MEDS: IPRATROPIUM/ALBUTEROL SULFATE 3 ML AMPUL.NEB IH SCH ×3 (08:35→21:31)
[2019-08-20] MEDS: FAMOTIDINE 20 MG TAB PO SCH ×2 (09:23→21:41)
[2019-08-20] MEDS: INSULIN LISPRO 100 UNIT/ML SUB-Q SCH ×4 (09:23→22:27)
[2019-08-20] MEDS: ALPRAZolam 0.25 MG TAB PO PRN ×2 (09:24→21:41)
[2019-08-20] MEDS: DOCUSATE SODIUM 100 MG CAP PO SCH ×2 (09:24→21:41)
[2019-08-20] MEDS: hydroCHLOROthiazide 25 MG TAB PO SCH (09:24)
[2019-08-20] MEDS: LISINOPRIL 20 MG TAB PO SCH (09:24)
[2019-08-20] MEDS: cefTRIAXone/NS 2 GM/100 ML 2 GM/100 ML BAG IV SCH (09:26)
[2019-08-20] MEDS: SODIUM CHLORIDE 0.9% 1000 ML 1,000 ML IV SCH (11:54)
[2019-08-20] MEDS: AZITHROMYCIN 500 MG in SODIUM CHLORIDE 0.9% 250ML 250 ML IV SCH (11:54)
--- NOTE | 2019-08-20 13:29 | Progress Note ---
Assessment and Plan Acute Hypoxic Respiratory failure chest x-ray reports left basilar opacity concerning for pneumonia AMS -resolved Leukocytosis COPD Hypertension Diabetes Obesity PAD s/p left AKA Mild rise of troponin ECG is sinus rhythm, no acute ischemic changes. Recommendations: Echocardiogram will be done for left ventricular function assessment. Otherwise, conservative cardiac management. Subjective Date of service: 08/20/19 Interval history: Patient is resting in bed comfortably. She reports her breathing is better. Objective Vital Signs Temp Pulse Pulse Pulse Resp Resp Resp 08/20/19 09:24 106 H 08/20/19 09:05 98.4 F 106 H 19 08/20/19 08:37 107 H 100 H 20 20 08/20/19 04:32 97.4 F L 92 H 19 08/20/19 00:15 98.0 F 95 H 22 08/19/19 23:00 08/19/19 22:39 08/19/19 22:38 105 H 99 H 20 22 08/19/19 20:27 98.1 F 111 H 20 08/19/19 18:00 08/19/19 16:44 98.5 F 105 H 18 BP Pulse Ox 08/20/19 09:24 181/122 08/20/19 09:05 181/122 98 08/20/19 08:37 08/20/19 04:32 122/65 99 08/20/19 00:15 129/50 93 08/19/19 23:00 98 08/19/19 22:39 93 08/19/19 22:38 08/19/19 20:27 113/71 95 08/19/19 18:00 97 08/19/19 16:44 131/75 99 - Physical Examination General: No Apparent Distress HEENT: Positive: PERRL Neck: Positive: trachea midline Cardiac: Positive: Reg Rate and Rhythm Lungs: Positive: Decreased Breath Sounds Neuro: Positive: Grossly Intact Extremities: Present: Other (left AKA) - Labs and Meds CBC 08/20/19 Range/Units 05:11 WBC 17.3 H (4.5-11.0) K/mm3 RBC 3.96 (3.65-5.03) M/mm3 Hgb 10.6 (10.1-14.3) gm/dl Hct 32.6 (30.3-42.9) % Plt Count 304 (140-440) K/mm3 Lymph # 4.3 (1.2-5.4) K/mm3 [place] # 1.1 H (0.0-0.8) K/mm3 Eos # 0.1 (0.0-0.4) K/mm3 Baso # 0.1 (0.0-0.1) K/mm3 Comprehensive Metabolic Panel 08/20/19 Range/Units 05:11 Sodium 141 (137-145) mmol/L Potassium 3.9 (3.6-5.0) mmol/L Chloride 107.9 H (98-107) mmol/L Carbon Dioxide 23 (22-30) mmol/L BUN 12 (7-17) mg/dL Creatinine 0.4 L (0.7-1.2) mg/dL Glucose 148 H (65-100) mg/dL Calcium 8.1 L (8.4-10.2) mg/dL
--- NOTE | 2019-08-20 15:31 | Progress Note ---
Assessment and Plan Assessment and plan: Acute Respiratory failure. Etiology secondary to PNA and COPD LLL Pneumonia Chest x-ray reports left basilar opacity concerning for pneumonia Sepsis. Etiology sec to pneumonia. F/U cx and lactate Toxic metabolic encephalopathy. Ressolving COPD. Cont bronchodilators Hypertension. Home BP meds Diabetes Mellitus II. 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 PT/OT History Interval history: No new issues overnight Hospitalist Physical - Constitutional Vitals: Temp Pulse Resp BP Pulse Ox 98.4 F 106 H 19 181/122 98 08/20/19 09:05 08/20/19 09:24 08/20/19 09:05 08/20/19 09:24 08/20/19 11:00 General appearance: Present: no acute distress, obese - EENT Eyes: Present: PERRL, EOM intact ENT: hearing intact, clear oral mucosa, dentition normal - Neck Neck: Present: supple, normal ROM - Respiratory Respiratory effort: normal Respiratory: bilateral: CTA - Cardiovascular Rhythm: regular Heart Sounds: Present: S1 & S2. Absent: gallop, rub - Extremities Extremities: no ischemia, No edema, Full ROM - Abdominal General gastrointestinal: soft, non-tender, non-distended, normal bowel sounds - Integumentary Integumentary: Present: clear, warm, dry - Neurologic Neurologic: CNII-XII intact, moves all extremities Results - Labs CBC & Chem 7: 08/20/19 05:11 08/20/19 05:11 Labs: Laboratory Last Values WBC 17.3 K/mm3 (4.5-11.0) H 08/20/19 05:11 RBC 3.96 M/mm3 (3.65-5.03) 08/20/19 05:11 Hgb 10.6 gm/dl (10.1-14.3) 08/20/19 05:11 Hct 32.6 % (30.3-42.9) 08/20/19 05:11 MCV 82 fl (79-97) 08/20/19 05:11 MCH 27 pg (28-32) L 08/20/19 05:11 MCHC 33 % (30-34) 08/20/19 05:11 RDW 15.4 % (13.2-15.2) H 08/20/19 05:11 Plt Count 304 K/mm3 (140-440) 08/20/19 05:11 Lymph % (Auto) 24.7 % (13.4-35.0) 08/20/19 05:11 [place] % (Auto) 6.2 % (0.0-7.3) 08/20/19 05:11 Eos % (Auto) 0.8 % (0.0-4.3) 08/20/19 05:11 Baso % (Auto) 0.8 % (0.0-1.8) 08/20/19 05:11 Lymph # 4.3 K/mm3 (1.2-5.4) 08/20/19 05:11 [place] # 1.1 K/mm3 (0.0-0.8) H 08/20/19 05:11 Eos # 0.1 K/mm3 (0.0-0.4) 08/20/19 05:11 Baso # 0.1 K/mm3 (0.0-0.1) 08/20/19 05:11 Add Manual Diff Complete 08/18/19 09:18 Total Counted 100 08/18/19 09:18 Seg Neutrophils % 67.5 % (40.0-70.0) 08/20/19 05:11 Seg Neuts % (Manual) 67.0 % (40.0-70.0) 08/18/19 09:18 Band Neutrophils % 3.0 % 08/18/19 09:18 Lymphocytes % (Manual) 21.0 % (13.4-35.0) 08/18/19 09:18 Reactive Lymphs % (Man) 0 % 08/18/19 09:18 Monocytes % (Manual) 9.0 % (0.0-7.3) H 08/18/19 09:18 Eosinophils % (Manual) 0 % (0.0-4.3) 08/18/19 09:18 Basophils % (Manual) 0 % (0.0-1.8) 08/18/19 09:18 Metamyelocytes % 0 % 08/18/19 09:18 Myelocytes % 0 % 08/18/19 09:18 Promyelocytes % 0 % 08/18/19 09:18 Blast Cells % 0 % 08/18/19 09:18 Nucleated RBC % Not Reportable 08/18/19 09:18 Seg Neutrophils # 11.7 K/mm3 (1.8-7.7) H 08/20/19 05:11 Seg Neutrophils # Man 23.9 K/mm3 (1.8-7.7) H 08/18/19 09:18 Band Neutrophils # 1.1 K/mm3 08/18/19 09:18 Lymphocytes # (Manual) 7.5 K/mm3 (1.2-5.4) H 08/18/19 09:18 Abs React Lymphs (Man) 0.0 K/mm3 08/18/19 09:18 Monocytes # (Manual) 3.2 K/mm3 (0.0-0.8) H 08/18/19 09:18 Eosinophils # (Manual) 0.0 K/mm3 (0.0-0.4) 08/18/19 09:18 Basophils # (Manual) 0.0 K/mm3 (0.0-0.1) 08/18/19 09:18 Metamyelocytes # 0.0 K/mm3 08/18/19 09:18 Myelocytes # 0.0 K/mm3 08/18/19 09:18 Promyelocytes # 0.0 K/mm3 08/18/19 09:18 Blast Cells # 0.0 K/mm3 08/18/19 09:18 WBC Morphology Not Reportable 08/18/19 09:18 Hypersegmented Neuts Not Reportable 08/18/19 09:18 Hyposegmented Neuts Not Reportable 08/18/19 09:18 Hypogranular Neuts Not Reportable 08/18/19 09:18 Smudge Cells Not Reportable 08/18/19 09:18 Toxic Granulation Not Reportable 08/18/19 09:18 Toxic Vacuolation Not Reportable 08/18/19 09:18 Dohle Bodies Not Reportable 08/18/19 09:18 Pelger-Huet Anomaly Not Reportable 08/18/19 09:18 Farida Rods Not Reportable 08/18/19 09:18 Platelet Estimate Not Reportable 08/18/19 09:18 Clumped Platelets Not Reportable 08/18/19 09:18 Plt Clumps, EDTA Not Reportable 08/18/19 09:18 Large Platelets Not Reportable 08/18/19 09:18 Giant Platelets Not Reportable 08/18/19 09:18 Platelet Satelliting Not Reportable 08/18/19 09:18 Plt Morphology Comment Not Reportable 08/18/19 09:18 RBC Morphology Not Reportable 08/18/19 09:18 Dimorphic RBCs Not Reportable 08/18/19 09:18 Polychromasia Few 08/18/19 09:18 Hypochromasia Not Reportable 08/18/19 09:18 Poikilocytosis Not Reportable 08/18/19 09:18 Anisocytosis 1+ 08/18/19 09:18 Microcytosis Not Reportable 08/18/19 09:18 Macrocytosis Not Reportable 08/18/19 09:18 Spherocytes Not Reportable 08/18/19 09:18 Pappenheimer Bodies Not Reportable 08/18/19 09:18 Sickle Cells Not Reportable 08/18/19 09:18 Target Cells Not Reportable 08/18/19 09:18 Tear Drop Cells Not Reportable 08/18/19 09:18 Ovalocytes Not Reportable 08/18/19 09:18 Helmet Cells Not Reportable 08/18/19 09:18 [place] Bodies Not Reportable 08/18/19 09:18 [place] Rings Not Reportable 08/18/19 09:18 Saeed Cells Not Reportable 08/18/19 09:18 Bite Cells Not Reportable 08/18/19 09:18 Crenated Cell Not Reportable 08/18/19 09:18 Elliptocytes Not Reportable 08/18/19 09:18 Acanthocytes (Spur) Not Reportable 08/18/19 09:18 Rouleaux Not Reportable 08/18/19 09:18 Hemoglobin C Crystals Not Reportable 08/18/19 09:18 Schistocytes Not Reportable 08/18/19 09:18 Malaria parasites Not Reportable 08/18/19 09:18 Wisam Bodies Not Reportable 08/18/19 09:18 Hem Pathologist Commnt No 08/18/19 09:18 PT 14.2 Sec. (12.2-14.9) 08/18/19 21:03 INR 1.11 (0.87-1.13) 08/18/19 21:03 APTT 26.4 Sec. (24.2-36.6) 08/18/19 21:03 Heparin Anti-Xa Level 0.31 U.I./ml (0.3-0.7) 08/20/19 00:41 POC ABG pH 7.381 (7.35-7.45) 08/18/19 10:51 POC ABG pCO2 37.2 (35-45) 08/18/19 10:51 POC ABG pO2 59 (80-105) L 08/18/19 10:51 POC ABG HCO3 22.1 (22-26 mml/L) 08/18/19 10:51 POC ABG Total CO2 23 (23-27mmol/L) 08/18/19 10:51 POC ABG O2 Sat 90 08/18/19 10:51 POC ABG Base Excess -3 ((-2) - (+3)mmol/L) 08/18/19 10:51 VBG pH 7.348 (7.320-7.420) 08/18/19 10:12 FiO2 21 % 08/18/19 10:51 Sodium 141 mmol/L (137-145) 08/20/19 05:11 Potassium 3.9 mmol/L (3.6-5.0) 08/20/19 05:11 Chloride 107.9 mmol/L (98-107) H 08/20/19 05:11 Carbon Dioxide 23 mmol/L (22-30) 08/20/19 05:11 Anion Gap 14 mmol/L 08/20/19 05:11 BUN 12 mg/dL (7-17) 08/20/19 05:11 Creatinine 0.4 mg/dL (0.7-1.2) L 08/20/19 05:11 Estimated GFR > 60 ml/min 08/20/19 05:11 BUN/Creatinine Ratio 30 % 08/20/19 05:11 Glucose 148 mg/dL (65-100) H 08/20/19 05:11 POC Glucose 312 (70-105) H 08/20/19 12:08 Lactic Acid 1.60 mmol/L (0.7-2.0) 08/19/19 07:55 Calcium 8.1 mg/dL (8.4-10.2) L 08/20/19 05:11 Magnesium 2.40 mg/dL (1.7-2.3) H 08/18/19 21:03 Troponin T 0.615 ng/mL (0.00-0.029) H* D 08/18/19 14:59 NT-Pro-B Natriuret Pep 2047 pg/mL (0-900) H 08/18/19 09:18 Triglycerides 170 mg/dL (2-149) H 08/18/19 09:18 Cholesterol 155 mg/dL (50-199) 08/18/19 09:18 LDL Cholesterol Direct 99 mg/dL (50-130) 08/18/19 09:18 HDL Cholesterol 45 mg/dL (40-59) 08/18/19 09:18 Cholesterol/HDL Ratio 3.44 % 08/18/19 09:18 TSH 0.719 mlU/mL (0.270-4.200) 08/18/19 21:03 Free T4 1.19 ng/dL (0.76-1.46) 08/18/19 21:03 Urine Color Yellow (Yellow) 08/18/19 18:24 Urine Turbidity Clear (Clear) 08/18/19 18:24 Urine pH 6.0 (5.0-7.0) 08/18/19 18:24 Ur Specific [place] 1.017 (1.003-1.030) 08/18/19 18:24 Urine Protein <15 mg/dl mg/dL (Negative) 08/18/19 18:24 Urine Glucose (UA) >=500 mg/dL (Negative) 08/18/19 18:24 Urine Ketones Tr mg/dL (Negative) 08/18/19 18:24 Urine Blood Neg (Negative) 08/18/19 18:24 Urine Nitrite Neg (Negative) 08/18/19 18:24 Urine Bilirubin Neg (Negative) 08/18/19 18:24 Urine Urobilinogen < 2.0 mg/dL (<2.0) 08/18/19 18:24 Ur Leukocyte Esterase Neg (Negative) 08/18/19 18:24 Urine WBC (Auto) 2.0 /HPF (0.0-6.0) 08/18/19 18:24 Urine RBC (Auto) 1.0 /HPF (0.0-6.0) 08/18/19 18:24 U Epithel Cells (Auto) 1.0 /HPF (0-13.0) 08/18/19 18:24 Urine Bacteria (Auto) 3+ /HPF (Negative) 08/18/19 18:24 Urine Mucus Few /HPF 08/18/19 18:24 Active Medications - Current Medications Current Medications: Generic Name Dose Route Start Last Admin Trade Name Freq PRN Reason Stop Dose Admin Acetaminophen 650 mg 08/18/19 10:54 Tylenol PO Q4H PRN Pain MILD(1-3)/Fever >100.5/RAMIREZ Acetaminophen/Hydrocodone Bitart 1 each 08/18/19 10:57 [place] 7.5/325 PO Q6H PRN Pain, Moderate (4-6) Albuterol 2.5 mg 08/18/19 10:54 08/19/19 11:42 Proventil IH 2.5 mg Q4HRT PRN Administration Shortness Of Breath Albuterol/Ipratropium 1 ampul 08/19/19 20:00 08/20/19 08:35 Duoneb *Not For Prn Use* IH 1 ampul TIDRT HAMZAH Administration Alprazolam 0.25 mg 08/19/19 11:39 08/20/19 09:24 Xanax PO 0.25 mg Q8H PRN Administration Anxiety Arformoterol Tartrate 15 mcg 08/19/19 20:00 08/20/19 08:35 Brovana Nebu IH 15 mcg Q12HRT HAMZAH Administration Budesonide 0.5 mg 08/19/19 20:00 08/20/19 08:35 Pulmicort IH 0.5 mg Q12HRT HAMZAH Administration Dextrose 50 ml 08/18/19 16:09 D50w (25gm) Syringe IV Q30MIN PRN Hypoglycemia Protocol Docusate Sodium 100 mg 08/18/19 22:00 08/20/19 09:24 Colace PO 100 mg BID HAMZAH Administration Famotidine 20 mg 08/18/19 22:00 08/20/19 09:23 Pepcid PO 20 mg BID HAMZAH Administration Gabapentin 300 mg 08/18/19 14:00 08/20/19 05:38 Gabapentin PO 300 mg Q8HR HAMZAH Administration Hydrochlorothiazide 25 mg 08/19/19 10:00 08/20/19 09:24 Hctz PO 25 mg QDAY HAMZAH Administration Ceftriaxone Sodium 2 gm in 100 mls @ 200 mls/hr 08/19/19 10:00 08/20/19 11:53 Rocephin/Ns 2 Gm/100 Ml IV Infused Q24HR HAMZAH Infusion Protocol Azithromycin 500 mg/ Sodium 250 mls @ 250 mls/hr 08/19/19 11:00 08/20/19 11:54 Chloride IV 250 mls/hr Q24H HAMZAH Administration Protocol Heparin Sodium/Sodium Chloride 25,000 unit in 500 mls @ 20 mls/hr 08/18/19 17:00 08/19/19 18:38 Heparin/ 0.45% Nacl-25,000 Unit/500 Ml IV 1,300 units/hr TITRATE HAMZAH 26 mls/hr Titration Protocol 1,000 UNITS/HR Sodium Chloride 1,000 mls @ 62 mls/hr 08/18/19 17:00 08/20/19 11:54 Nacl 0.9% 1000 Ml IV 62 mls/hr DIRECT HAMZAH Administration Insulin Human Lispro 0 unit 08/19/19 07:30 08/20/19 12:00 Humalog SUB-Q 6 unit ACHS HAMZAH Administration Protocol Lisinopril 20 mg 08/19/19 10:00 08/20/19 09:24 Zestril PO 20 mg QDAY HAMZAH Administration Meclizine HCl 25 mg 08/18/19 10:57 Antivert PO TID PRN Vertigo Ondansetron HCl 4 mg 08/18/19 10:54 Zofran IV Q8H PRN Nausea And Vomiting Senna 8.6 mg 08/18/19 10:57 Senokot PO Q12H PRN Laxative Effect Sodium Chloride 10 ml 08/18/19 22:00 08/20/19 09:26 Sodium Chloride Flush Syringe 10 Ml IV 10 ml BID HAMZAH Administration Sodium Chloride 10 ml 08/18/19 10:54 Sodium Chloride Flush Syringe 10 Ml IV PRN PRN LINE FLUSH
[2019-08-21] MEDS: SODIUM CHLORIDE 0.9% 1000 ML 1,000 ML IV SCH (05:27)
[2019-08-21] MEDS: GABAPENTIN 300 MG CAP PO SCH ×3 (05:27→22:37)
[2019-08-21] MEDS: IPRATROPIUM/ALBUTEROL SULFATE 3 ML AMPUL.NEB IH SCH ×3 (08:19→19:46)
[2019-08-21] MEDS: ARFORMOTEROL 15 MCG/2 ML NEBU IH SCH ×2 (08:20→19:46)
[2019-08-21] MEDS: BUDESONIDE 0.5 MG/2 ML NEBU IH SCH ×2 (08:20→19:46)
[2019-08-21 08:53] LABS: Basophils # (Auto) 0.1 K/mm3 (0.0-0.1); Basophils % (Auto) 0.4 % (0.0-1.8); Eosinophils # (Auto) 0.3 K/mm3 (0.0-0.4); Eosinophils % (Auto) 2.2 % (0.0-4.3); Hematocrit 32.5 % (30.3-42.9); Hemoglobin 10.4 gm/dl (10.1-14.3); Lymphocytes # (Auto) 4.2 K/mm3 (1.2-5.4); Lymphocytes % (Auto) 28.2 % (13.4-35.0); Mean Corpuscular HGB Conc 32 % (30-34); Mean Corpuscular Volume 82 fl (79-97); Monocytes # (Auto) 0.7 K/mm3 (0.0-0.8); Monocytes % (Auto) 5.1 % (0.0-7.3); Platelet Count 269 K/mm3 (140-440); Red Blood Count 3.95 M/mm3 (3.65-5.03); Red Cell Distribution Width 15.7 % (13.2-15.2)
[2019-08-21] MEDS: INSULIN LISPRO 100 UNIT/ML SUB-Q SCH ×4 (09:07→22:43)
[2019-08-21] MEDS: HEPARIN/ 0.45% NACL DRIP 25,000 UNIT/500 ML BAG IV SCH (09:08)
[2019-08-21] MEDS: cefTRIAXone/NS 2 GM/100 ML 2 GM/100 ML BAG IV SCH (10:30)
[2019-08-21] MEDS: DOCUSATE SODIUM 100 MG CAP PO SCH ×2 (10:32→22:38)
[2019-08-21] MEDS: FAMOTIDINE 20 MG TAB PO SCH ×2 (10:32→22:37)
[2019-08-21] MEDS: hydroCHLOROthiazide 25 MG TAB PO SCH (10:39)
[2019-08-21] MEDS: LISINOPRIL 20 MG TAB PO SCH (10:40)
--- NOTE | 2019-08-21 11:27 | Progress Note ---
<CRISTINA STEWART - Last Filed: 08/21/19 11:23> Assessment and Plan Acute Hypoxic Respiratory failure chest x-ray reports left basilar opacity concerning for pneumonia AMS -resolved Leukocytosis COPD Hypertension Diabetes Obesity PAD s/p left AKA Mild rise of troponin ECG is sinus rhythm, no acute ischemic changes. An echocardiogram this admission reveals 4 chamber dilated cardiomyopathy with a decrease LV systolic function, ejection fraction 25-30%. Recommendations: Fluid/sodium restriction. Medical therapy for dilated cardiomyopathy. Outpatient ischemic evaluation once respiratory status is stable. Subjective Date of service: 08/21/19 Interval history: No cardiac events reported overnight. Objective Vital Signs Temp Pulse Pulse Resp Resp BP BP 08/21/19 10:40 87 116/49 08/21/19 07:58 98.4 F 20 107/59 08/21/19 05:38 92 H 20 129/71 08/21/19 04:54 98.8 F 88 19 96/37 08/20/19 23:53 98.3 F 92 H 20 92/47 08/20/19 23:00 08/20/19 21:39 97 H 22 08/20/19 21:38 08/20/19 21:37 92 H 22 08/20/19 19:45 98.4 F 95 H 19 103/54 08/20/19 17:40 98.8 F 98 H 18 126/41 08/20/19 16:53 98.4 F 114 H 19 179/93 08/20/19 12:30 98.8 F 88 19 132/72 Pulse Ox 08/21/19 10:40 08/21/19 07:58 93 08/21/19 05:38 91 08/21/19 04:54 94 08/20/19 23:53 95 08/20/19 23:00 98 08/20/19 21:39 99 08/20/19 21:38 99 08/20/19 21:37 08/20/19 19:45 99 08/20/19 17:40 94 08/20/19 16:53 100 08/20/19 12:30 93 - Physical Examination General: No Apparent Distress HEENT: Positive: PERRL Neck: Positive: trachea midline Cardiac: Positive: Reg Rate and Rhythm Lungs: Positive: Decreased Breath Sounds Neuro: Positive: Grossly Intact Extremities: Present: Other (left AKA) - Labs and Meds CBC 08/21/19 Range/Units 08:37 WBC 14.8 H (4.5-11.0) K/mm3 RBC 3.95 (3.65-5.03) M/mm3 Hgb 10.4 (10.1-14.3) gm/dl Hct 32.5 (30.3-42.9) % Plt Count 269 (140-440) K/mm3 Lymph # 4.2 (1.2-5.4) K/mm3 [place] # 0.7 (0.0-0.8) K/mm3 Eos # 0.3 (0.0-0.4) K/mm3 Baso # 0.1 (0.0-0.1) K/mm3 <DION RIVERA - Last Filed: 08/21/19 15:24> Assessment and Plan I've seen and evaluated the patient and agree with the assessment and plan. Patient presents with history of dilated cardiomyopathy with ejection fraction of 25-30%, as well as peripheral arterial disease status post left AKA, diabetes, hypertension, and acute hypoxic respiratory failure. The patient is currently being treated for pneumonia. Recommend fluid and sodium restriction. Recommend continue goal-directed medical therapy for dilated cardiomyopathy. Patient will need an ischemic evaluation for cardiomyopathy Objective Vital Signs Temp Pulse Pulse Pulse Pulse Resp Resp 08/21/19 11:50 98.6 F 94 H 18 08/21/19 11:00 94 H 94 H 18 08/21/19 10:40 87 08/21/19 07:58 98.4 F 20 08/21/19 05:38 92 H 20 08/21/19 04:54 98.8 F 88 19 08/20/19 23:53 98.3 F 92 H 20 08/20/19 23:00 08/20/19 21:39 97 H 22 08/20/19 21:38 08/20/19 21:37 92 H 22 08/20/19 19:45 98.4 F 95 H 19 08/20/19 17:40 98.8 F 98 H 18 08/20/19 16:53 98.4 F 114 H 19 BP BP Pulse Ox 08/21/19 11:50 123/59 94 08/21/19 11:00 97 08/21/19 10:40 116/49 08/21/19 07:58 107/59 93 08/21/19 05:38 129/71 91 08/21/19 04:54 96/37 94 08/20/19 23:53 92/47 95 08/20/19 23:00 98 08/20/19 21:39 99 08/20/19 21:38 99 08/20/19 21:37 08/20/19 19:45 103/54 99 08/20/19 17:40 126/41 94 08/20/19 16:53 179/93 100 - Labs and Meds CBC 08/21/19 Range/Units 08:37 WBC 14.8 H (4.5-11.0) K/mm3 RBC 3.95 (3.65-5.03) M/mm3 Hgb 10.4 (10.1-14.3) gm/dl Hct 32.5 (30.3-42.9) % Plt Count 269 (140-440) K/mm3 Lymph # 4.2 (1.2-5.4) K/mm3 [place] # 0.7 (0.0-0.8) K/mm3 Eos # 0.3 (0.0-0.4) K/mm3 Baso # 0.1 (0.0-0.1) K/mm3
[2019-08-21] MEDS: AZITHROMYCIN 500 MG in SODIUM CHLORIDE 0.9% 250ML 250 ML IV SCH (11:56)
[2019-08-21] MEDS: FUROSEMIDE 40 MG TAB PO SCH (17:01)
--- NOTE | 2019-08-21 18:33 | Progress Note ---
Assessment and Plan Assessment and plan: Acute Respiratory failure. Etiology secondary to PNA and COPD Acute CHF exac. ECHO reveals EF 25%. Outpatient ischemic evaluation once respiratory status is stable. LLL Pneumonia Chest x-ray reports left basilar opacity concerning for pneumonia Sepsis. Etiology sec to pneumonia. F/U cx and lactate Toxic metabolic encephalopathy. Ressolving COPD. Cont bronchodilators Hypertension. Home BP meds Diabetes Mellitus II. 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 PT/OT History Interval history: No new issues overnight Hospitalist Physical - Constitutional Vitals: Temp Pulse Resp BP Pulse Ox 98.2 F 89 18 112/57 96 08/21/19 16:24 08/21/19 16:24 08/21/19 16:24 08/21/19 16:24 08/21/19 16:24 General appearance: Present: no acute distress, obese - EENT Eyes: Present: PERRL, EOM intact ENT: hearing intact, clear oral mucosa, dentition normal - Neck Neck: Present: supple, normal ROM - Respiratory Respiratory effort: normal Respiratory: bilateral: CTA - Cardiovascular Rhythm: regular Heart Sounds: Present: S1 & S2. Absent: gallop, rub - Extremities Extremities: no ischemia, No edema, Full ROM - Abdominal General gastrointestinal: soft, non-tender, non-distended, normal bowel sounds - Integumentary Integumentary: Present: clear, warm, dry - Neurologic Neurologic: CNII-XII intact, moves all extremities Results - Labs CBC & Chem 7: 08/21/19 08:37 08/20/19 05:11 Labs: Laboratory Last Values WBC 14.8 K/mm3 (4.5-11.0) H 08/21/19 08:37 RBC 3.95 M/mm3 (3.65-5.03) 08/21/19 08:37 Hgb 10.4 gm/dl (10.1-14.3) 08/21/19 08:37 Hct 32.5 % (30.3-42.9) 08/21/19 08:37 MCV 82 fl (79-97) 08/21/19 08:37 MCH 26 pg (28-32) L 08/21/19 08:37 MCHC 32 % (30-34) 08/21/19 08:37 RDW 15.7 % (13.2-15.2) H 08/21/19 08:37 Plt Count 269 K/mm3 (140-440) 08/21/19 08:37 Lymph % (Auto) 28.2 % (13.4-35.0) 08/21/19 08:37 [place] % (Auto) 5.1 % (0.0-7.3) 08/21/19 08:37 Eos % (Auto) 2.2 % (0.0-4.3) 08/21/19 08:37 Baso % (Auto) 0.4 % (0.0-1.8) 08/21/19 08:37 Lymph # 4.2 K/mm3 (1.2-5.4) 08/21/19 08:37 [place] # 0.7 K/mm3 (0.0-0.8) 08/21/19 08:37 Eos # 0.3 K/mm3 (0.0-0.4) 08/21/19 08:37 Baso # 0.1 K/mm3 (0.0-0.1) 08/21/19 08:37 Add Manual Diff Complete 08/18/19 09:18 Total Counted 100 08/18/19 09:18 Seg Neutrophils % 64.1 % (40.0-70.0) 08/21/19 08:37 Seg Neuts % (Manual) 67.0 % (40.0-70.0) 08/18/19 09:18 Band Neutrophils % 3.0 % 08/18/19 09:18 Lymphocytes % (Manual) 21.0 % (13.4-35.0) 08/18/19 09:18 Reactive Lymphs % (Man) 0 % 08/18/19 09:18 Monocytes % (Manual) 9.0 % (0.0-7.3) H 08/18/19 09:18 Eosinophils % (Manual) 0 % (0.0-4.3) 08/18/19 09:18 Basophils % (Manual) 0 % (0.0-1.8) 08/18/19 09:18 Metamyelocytes % 0 % 08/18/19 09:18 Myelocytes % 0 % 08/18/19 09:18 Promyelocytes % 0 % 08/18/19 09:18 Blast Cells % 0 % 08/18/19 09:18 Nucleated RBC % Not Reportable 08/18/19 09:18 Seg Neutrophils # 9.5 K/mm3 (1.8-7.7) H 08/21/19 08:37 Seg Neutrophils # Man 23.9 K/mm3 (1.8-7.7) H 08/18/19 09:18 Band Neutrophils # 1.1 K/mm3 08/18/19 09:18 Lymphocytes # (Manual) 7.5 K/mm3 (1.2-5.4) H 08/18/19 09:18 Abs React Lymphs (Man) 0.0 K/mm3 08/18/19 09:18 Monocytes # (Manual) 3.2 K/mm3 (0.0-0.8) H 08/18/19 09:18 Eosinophils # (Manual) 0.0 K/mm3 (0.0-0.4) 08/18/19 09:18 Basophils # (Manual) 0.0 K/mm3 (0.0-0.1) 08/18/19 09:18 Metamyelocytes # 0.0 K/mm3 08/18/19 09:18 Myelocytes # 0.0 K/mm3 08/18/19 09:18 Promyelocytes # 0.0 K/mm3 08/18/19 09:18 Blast Cells # 0.0 K/mm3 08/18/19 09:18 WBC Morphology Not Reportable 08/18/19 09:18 Hypersegmented Neuts Not Reportable 08/18/19 09:18 Hyposegmented Neuts Not Reportable 08/18/19 09:18 Hypogranular Neuts Not Reportable 08/18/19 09:18 Smudge Cells Not Reportable 08/18/19 09:18 Toxic Granulation Not Reportable 08/18/19 09:18 Toxic Vacuolation Not Reportable 08/18/19 09:18 Dohle Bodies Not Reportable 08/18/19 09:18 Pel[place]-Huet Anomaly Not Reportable 08/18/19 09:18 Farida Rods Not Reportable 08/18/19 09:18 Platelet Estimate Not Reportable 08/18/19 09:18 Clumped Platelets Not Reportable 08/18/19 09:18 Plt Clumps, EDTA Not Reportable 08/18/19 09:18 Large Platelets Not Reportable 08/18/19 09:18 Giant Platelets Not Reportable 08/18/19 09:18 Platelet Satelliting Not Reportable 08/18/19 09:18 Plt Morphology Comment Not Reportable 08/18/19 09:18 RBC Morphology Not Reportable 08/18/19 09:18 Dimorphic RBCs Not Reportable 08/18/19 09:18 Polychromasia Few 08/18/19 09:18 Hypochromasia Not Reportable 08/18/19 09:18 Poikilocytosis Not Reportable 08/18/19 09:18 Anisocytosis 1+ 08/18/19 09:18 Microcytosis Not Reportable 08/18/19 09:18 Macrocytosis Not Reportable 08/18/19 09:18 Spherocytes Not Reportable 08/18/19 09:18 Pappenheimer Bodies Not Reportable 08/18/19 09:18 Sickle Cells Not Reportable 08/18/19 09:18 Target Cells Not Reportable 08/18/19 09:18 Tear Drop Cells Not Reportable 08/18/19 09:18 Ovalocytes Not Reportable 08/18/19 09:18 Helmet Cells Not Reportable 08/18/19 09:18 [place] Bodies Not Reportable 08/18/19 09:18 [place] Rings Not Reportable 08/18/19 09:18 [place] Cells Not Reportable 08/18/19 09:18 Bite Cells Not Reportable 08/18/19 09:18 Crenated Cell Not Reportable 08/18/19 09:18 Elliptocytes Not Reportable 08/18/19 09:18 Acanthocytes (Spur) Not Reportable 08/18/19 09:18 [place]leaux Not Reportable 08/18/19 09:18 Hemoglobin C Crystals Not Reportable 08/18/19 09:18 Schistocytes Not Reportable 08/18/19 09:18 Malaria parasites Not Reportable 08/18/19 09:18 [place] Bodies Not Reportable 08/18/19 09:18 Hem Pathologist Commnt No 08/18/19 09:18 PT 14.2 Sec. (12.2-14.9) 08/18/19 21:03 INR 1.11 (0.87-1.13) 08/18/19 21:03 APTT 26.4 Sec. (24.2-36.6) 08/18/19 21:03 Heparin Anti-Xa Level < 0.10 U.I./ml (0.3-0.7) L 08/21/19 13:21 POC ABG pH 7.381 (7.35-7.45) 08/18/19 10:51 POC ABG pCO2 37.2 (35-45) 08/18/19 10:51 POC ABG pO2 59 (80-105) L 08/18/19 10:51 POC ABG HCO3 22.1 (22-26 mml/L) 08/18/19 10:51 POC ABG Total CO2 23 (23-27mmol/L) 08/18/19 10:51 POC ABG O2 Sat 90 08/18/19 10:51 POC ABG Base Excess -3 ((-2) - (+3)mmol/L) 08/18/19 10:51 VBG pH 7.348 (7.320-7.420) 08/18/19 10:12 FiO2 21 % 08/18/19 10:51 Sodium 141 mmol/L (137-145) 08/20/19 05:11 Potassium 3.9 mmol/L (3.6-5.0) 08/20/19 05:11 Chloride 107.9 mmol/L (98-107) H 08/20/19 05:11 Carbon Dioxide 23 mmol/L (22-30) 08/20/19 05:11 Anion Gap 14 mmol/L 08/20/19 05:11 BUN 12 mg/dL (7-17) 08/20/19 05:11 Creatinine 0.4 mg/dL (0.7-1.2) L 08/20/19 05:11 Estimated GFR > 60 ml/min 08/20/19 05:11 BUN/Creatinine Ratio 30 % 08/20/19 05:11 Glucose 148 mg/dL (65-100) H 08/20/19 05:11 POC Glucose 261 (70-105) H 08/21/19 16:32 Lactic Acid 1.60 mmol/L (0.7-2.0) 08/19/19 07:55 Calcium 8.1 mg/dL (8.4-10.2) L 08/20/19 05:11 Magnesium 2.40 mg/dL (1.7-2.3) H 08/18/19 21:03 Troponin T 0.615 ng/mL (0.00-0.029) H* D 08/18/19 14:59 NT-Pro-B Natriuret Pep 2047 pg/mL (0-900) H 08/18/19 09:18 Triglycerides 170 mg/dL (2-149) H 08/18/19 09:18 Cholesterol 155 mg/dL (50-199) 08/18/19 09:18 LDL Cholesterol Direct 99 mg/dL (50-130) 08/18/19 09:18 HDL Cholesterol 45 mg/dL (40-59) 08/18/19 09:18 Cholesterol/HDL Ratio 3.44 % 08/18/19 09:18 TSH 0.719 mlU/mL (0.270-4.200) 08/18/19 21:03 Free T4 1.19 ng/dL (0.76-1.46) 08/18/19 21:03 Urine Color Yellow (Yellow) 08/18/19 18:24 Urine Turbidity Clear (Clear) 08/18/19 18:24 Urine pH 6.0 (5.0-7.0) 08/18/19 18:24 Ur Specific [place] 1.017 (1.003-1.030) 08/18/19 18:24 Urine Protein <15 mg/dl mg/dL (Negative) 08/18/19 18:24 Urine Glucose (UA) >=500 mg/dL (Negative) 08/18/19 18:24 Urine Ketones Tr mg/dL (Negative) 08/18/19 18:24 Urine Blood Neg (Negative) 08/18/19 18:24 Urine Nitrite Neg (Negative) 08/18/19 18:24 Urine Bilirubin Neg (Negative) 08/18/19 18:24 Urine Urobilinogen < 2.0 mg/dL (<2.0) 08/18/19 18:24 Ur Leukocyte Esterase Neg (Negative) 08/18/19 18:24 Urine WBC (Auto) 2.0 /HPF (0.0-6.0) 08/18/19 18:24 Urine RBC (Auto) 1.0 /HPF (0.0-6.0) 08/18/19 18:24 U Epithel Cells (Auto) 1.0 /HPF (0-13.0) 08/18/19 18:24 Urine Bacteria (Auto) 3+ /HPF (Negative) 08/18/19 18:24 Urine Mucus Few /HPF 08/18/19 18:24 Active Medications - Current Medications Current Medications: Generic Name Dose Route Start Last Admin Trade Name Freq PRN Reason Stop Dose Admin Acetaminophen 650 mg 08/18/19 10:54 Tylenol PO Q4H PRN Pain MILD(1-3)/Fever >100.5/RAMIREZ Acetaminophen/Hydrocodone Bitart 1 each 08/18/19 10:57 [place] 7.5/325 PO Q6H PRN Pain, Moderate (4-6) Albuterol 2.5 mg 08/18/19 10:54 08/19/19 11:42 Proventil IH 2.5 mg Q4HRT PRN Administration Shortness Of Breath Albuterol/Ipratropium 1 ampul 08/19/19 20:00 08/21/19 14:26 Duoneb *Not For Prn Use* IH 1 ampul TIDRT HAMZAH Administration Alprazolam 0.25 mg 08/19/19 11:39 08/20/19 21:41 Xanax PO 0.25 mg Q8H PRN Administration Anxiety Arformoterol Tartrate 15 mcg 08/19/19 20:00 08/21/19 08:20 Brovana Nebu IH 15 mcg Q12HRT HAZMAH Administration Budesonide 0.5 mg 08/19/19 20:00 08/21/19 08:20 Pulmicort IH 0.5 mg Q12HRT HAMZAH Administration Carvedilol 3.125 mg 08/21/19 22:00 Coreg PO BID HAMZAH Dextrose 50 ml 08/18/19 16:09 D50w (25gm) Syringe IV Q30MIN PRN Hypoglycemia Protocol Docusate Sodium 100 mg 08/18/19 22:00 08/21/19 10:32 Colace PO 100 mg BID HAMZAH Administration Famotidine 20 mg 08/18/19 22:00 08/21/19 10:32 Pepcid PO 20 mg BID HAMZAH Administration Furosemide 40 mg 08/21/19 18:00 08/21/19 17:01 Lasix PO 40 mg 0600,1800 HAMZAH Administration Gabapentin 300 mg 08/18/19 14:00 08/21/19 13:00 Gabapentin PO 300 mg Q8HR HAMZAH Administration Heparin Sodium (Porcine) 5,000 unit 08/21/19 22:00 Heparin SUB-Q Q8HR [facility] Ceftriaxone Sodium 2 gm in 100 mls @ 200 mls/hr 08/19/19 10:00 08/21/19 10:30 Rocephin/Ns 2 Gm/100 Ml IV 200 mls/hr Q24HR HAMZAH Administration Protocol Azithromycin 500 mg/ Sodium 250 mls @ 250 mls/hr 08/19/19 11:00 08/21/19 11:56 Chloride IV 250 mls/hr Q24H HAMZAH Administration Protocol Sodium Chloride 1,000 mls @ 62 mls/hr 08/18/19 17:00 08/21/19 05:27 Nacl 0.9% 1000 Ml IV 62 mls/hr DIRECT HAMZAH Administration Insulin Glargine 10 units 08/21/19 22:00 Lantus SUB-Q QHS HAMZAH Insulin Human Lispro 0 unit 08/19/19 07:30 08/21/19 17:01 Humalog SUB-Q 4 unit ACHS [facility] Administration Protocol Lisinopril 5 mg 08/22/19 10:00 Zestril PO QDAY [facility] Meclizine HCl 25 mg 08/18/19 10:57 Antivert PO TID PRN Vertigo Ondansetron HCl 4 mg 08/18/19 10:54 Zofran IV Q8H PRN Nausea And Vomiting Senna 8.6 mg 08/18/19 10:57 Senokot PO Q12H PRN Laxative Effect Sodium Chloride 10 ml 08/18/19 22:00 08/21/19 10:32 Sodium Chloride Flush Syringe 10 Ml IV 10 ml BID HAMZAH Administration Sodium Chloride 10 ml 08/18/19 10:54 Sodium Chloride Flush Syringe 10 Ml IV PRN PRN LINE FLUSH Spironolactone 12.5 mg 08/22/19 10:00 Aldactone PO QDAY [facility]
[2019-08-21] MEDS: HEPARIN 5,000 UNIT/1 ML VIAL SUB-Q SCH (22:38)
[2019-08-21] MEDS: carvediloL 3.125 MG TAB PO SCH (22:41)
[2019-08-21] MEDS: INSULIN GLARGINE 100 UNITS/ML SUB-Q SCH (22:49)
[2019-08-22] MEDS: SODIUM CHLORIDE 0.9% 1000 ML 1,000 ML IV SCH (00:59)
[2019-08-22] MEDS: ALBUTEROL 2.5 MG/3 ML NEBU IH PRN (02:43)
[2019-08-22 05:29] LABS: Basophils # (Auto) 0.1 K/mm3 (0.0-0.1); Basophils % (Auto) 0.4 % (0.0-1.8); Eosinophils # (Auto) 0.4 K/mm3 (0.0-0.4); Hematocrit 31.1 % (30.3-42.9); Hemoglobin 10.1 gm/dl (10.1-14.3); Lymphocytes # (Auto) 2.8 K/mm3 (1.2-5.4); Lymphocytes % (Auto) 19.6 % (13.4-35.0); Mean Corpuscular HGB Conc 33 % (30-34); Mean Corpuscular Volume 82 fl (79-97); Monocytes # (Auto) 0.8 K/mm3 (0.0-0.8); Monocytes % (Auto) 5.2 % (0.0-7.3); Platelet Count 279 K/mm3 (140-440); Red Blood Count 3.82 M/mm3 (3.65-5.03); Red Cell Distribution Width 15.3 % (13.2-15.2)
[2019-08-22 05:49] LABS: BUN/Creatinine Ratio 15; Blood Urea Nitrogen 6 mg/dL (7-17); Calcium 8.1 mg/dL (8.4-10.2); Hemolysis Index 4
[2019-08-22] MEDS: HEPARIN 5,000 UNIT/1 ML VIAL SUB-Q SCH ×3 (06:21→22:35)
[2019-08-22] MEDS: FUROSEMIDE 40 MG TAB PO SCH ×2 (06:21→17:50)
[2019-08-22] MEDS: GABAPENTIN 300 MG CAP PO SCH ×3 (06:21→22:35)
[2019-08-22] MEDS ORDERED: POTASSIUM CHLORIDE ER 20 MEQ TAB PO NR (08:18)
[2019-08-22] MEDS: ARFORMOTEROL 15 MCG/2 ML NEBU IH SCH ×2 (08:59→19:49)
[2019-08-22] MEDS: BUDESONIDE 0.5 MG/2 ML NEBU IH SCH ×2 (08:59→19:49)
[2019-08-22] MEDS: IPRATROPIUM/ALBUTEROL SULFATE 3 ML AMPUL.NEB IH SCH ×3 (09:06→19:49)
[2019-08-22] MEDS: LISINOPRIL 5 MG TAB PO SCH (09:37)
[2019-08-22] MEDS: carvediloL 3.125 MG TAB PO SCH ×3 (09:38→22:49)
[2019-08-22] MEDS: INSULIN LISPRO 100 UNIT/ML SUB-Q SCH ×4 (09:38→22:40)
[2019-08-22] MEDS: cefTRIAXone/NS 2 GM/100 ML 2 GM/100 ML BAG IV SCH (09:38)
[2019-08-22] MEDS: FAMOTIDINE 20 MG TAB PO SCH ×2 (09:38→22:35)
[2019-08-22] MEDS: SPIRONOLACTONE 25 MG TAB PO SCH (09:38)
[2019-08-22] MEDS: DOCUSATE SODIUM 100 MG CAP PO SCH ×2 (09:38→22:35)
--- NOTE | 2019-08-22 09:56 | Progress Note ---
Assessment and Plan Dilated Cardiomyopathy, unknown duration an echocardiogram this admission reveals 4 chamber dilated cardiomyopathy with a decrease LV systolic function, ejection fraction 25-30%. Acute Hypoxic Respiratory failure chest x-ray reports left basilar opacity concerning for pneumonia AMS -resolved Leukocytosis COPD Hypertension Diabetes Obesity PAD s/p left AKA Mild rise of troponin ECG is sinus rhythm, no acute ischemic changes. Recommendations: Advised fluid/sodium restriction. Continue medical therapy for dilated cardiomyopathy. Outpatient ischemic evaluation once respiratory status is stable. Subjective Date of service: 08/22/19 Interval history: Patient reports her breathing is better. Objective Vital Signs Temp Pulse Pulse Pulse Pulse Resp Resp 08/22/19 08:12 98.0 F 79 18 08/22/19 07:53 94 H 94 H 18 08/22/19 05:03 98.8 F 08/22/19 04:59 88 20 08/22/19 03:10 95 H 20 08/22/19 02:45 86 18 08/22/19 00:09 98.2 F 08/22/19 00:00 90 20 08/21/19 23:00 94 H 94 H 18 08/21/19 22:41 08/21/19 21:06 97.9 F 08/21/19 21:04 93 H 22 08/21/19 20:18 08/21/19 19:48 95 H 20 08/21/19 19:45 93 H 20 08/21/19 16:24 98.2 F 89 18 08/21/19 16:20 97 H 22 08/21/19 14:20 98 H 18 08/21/19 11:50 98.6 F 94 H 18 08/21/19 11:00 94 H 94 H 18 08/21/19 10:40 87 BP Pulse Ox 08/22/19 08:12 109/52 90 08/22/19 07:53 97 08/22/19 05:03 08/22/19 04:59 114/47 94 08/22/19 03:10 96 08/22/19 02:45 08/22/19 00:09 08/22/19 00:00 97/47 93 08/21/19 23:00 97 08/21/19 22:41 133/61 08/21/19 21:06 08/21/19 21:04 110/66 94 08/21/19 20:18 96 08/21/19 19:48 12/04/19 19:45 100 08/21/19 16:24 112/57 96 08/21/19 16:20 97 08/21/19 14:20 08/21/19 11:50 123/59 94 08/21/19 11:00 96 08/21/19 10:40 116/49 - Physical Examination General: No Apparent Distress HEENT: Positive: PERRL Neck: Positive: trachea midline Cardiac: Positive: Reg Rate and Rhythm Lungs: Positive: Decreased Breath Sounds Neuro: Positive: Grossly Intact Extremities: Present: Other (left AKA). Absent: edema - Labs and Meds CBC 08/22/19 Range/Units 04:46 WBC 14.5 H (4.5-11.0) K/mm3 RBC 3.82 (3.65-5.03) M/mm3 Hgb 10.1 (10.1-14.3) gm/dl Hct 31.1 (30.3-42.9) % Plt Count 279 (140-440) K/mm3 Lymph # 2.8 (1.2-5.4) K/mm3 [place] # 0.8 (0.0-0.8) K/mm3 Eos # 0.4 (0.0-0.4) K/mm3 Baso # 0.1 (0.0-0.1) K/mm3 Comprehensive Metabolic Panel 08/22/19 Range/Units 04:46 Sodium 142 (137-145) mmol/L Potassium 3.1 L D (3.6-5.0) mmol/L Chloride 101.8 (98-107) mmol/L Carbon Dioxide 30 D (22-30) mmol/L BUN 6 L (7-17) mg/dL Creatinine 0.4 L (0.7-1.2) mg/dL Glucose 153 H (65-100) mg/dL Calcium 8.1 L (8.4-10.2) mg/dL
[2019-08-22] MEDS: AZITHROMYCIN 500 MG in SODIUM CHLORIDE 0.9% 250ML 250 ML IV SCH (11:13)
--- NOTE | 2019-08-22 17:04 | Progress Note ---
Assessment and Plan Assessment and plan: Acute Respiratory failure. Etiology secondary to PNA and COPD Acute CHF exac. ECHO reveals EF 25%. Outpatient ischemic evaluation once respiratory status is stable. LLL Pneumonia Chest x-ray reports left basilar opacity concerning for pneumonia Sepsis. Etiology sec to pneumonia. F/U cx and lactate Toxic metabolic encephalopathy. Ressolving COPD. Cont bronchodilators Hypertension. Home BP meds Diabetes Mellitus II. 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 [employer] Att[employer] on wt. loss and exercise Left AKA. PT/OT History Interval history: No new issues overnight Hospitalist Physical - Constitutional Vitals: Temp Pulse Resp BP Pulse Ox 98.4 F 86 18 115/58 91 08/22/19 16:45 08/22/19 16:45 08/22/19 16:45 08/22/19 16:45 08/22/19 16:45 General appearance: Present: no acute distress, obese - EENT Eyes: Present: PERRL, EOM intact ENT: hearing intact, clear oral mucosa, dentition normal - Neck Neck: Present: supple, normal ROM - Respiratory Respiratory effort: normal Respiratory: bilateral: CTA - Cardiovascular Rhythm: regular Heart Sounds: Present: S1 & S2. Absent: gallop, rub - Extremities Extremities: no ischemia, No edema, Full ROM - Abdominal General gastrointestinal: soft, non-tender, non-distended, normal bowel sounds - Integumentary Integumentary: Present: clear, warm, dry - Neurologic Neurologic: CNII-XII intact, moves all extremities Results - Labs CBC & Chem 7: 08/22/19 04:46 08/22/19 04:46 Labs: Laboratory Last Values WBC 14.5 K/mm3 (4.5-11.0) H 08/22/19 04:46 RBC 3.82 M/mm3 (3.65-5.03) 08/22/19 04:46 Hgb 10.1 gm/dl (10.1-14.3) 08/22/19 04:46 Hct 31.1 % (30.3-42.9) 08/22/19 04:46 MCV 82 fl (79-97) 08/22/19 04:46 MCH 27 pg (28-32) L 08/22/19 04:46 MCHC 33 % (30-34) 08/22/19 04:46 RDW 15.3 % (13.2-15.2) H 08/22/19 04:46 Plt Count 279 K/mm3 (140-440) 08/22/19 04:46 Lymph % (Auto) 19.6 % (13.4-35.0) 08/22/19 04:46 [place] % (Auto) 5.2 % (0.0-7.3) 08/22/19 04:46 Eos % (Auto) 3.0 % (0.0-4.3) 08/22/19 04:46 Baso % (Auto) 0.4 % (0.0-1.8) 08/22/19 04:46 Lymph # 2.8 K/mm3 (1.2-5.4) 08/22/19 04:46 [place] # 0.8 K/mm3 (0.0-0.8) 08/22/19 04:46 Eos # 0.4 K/mm3 (0.0-0.4) 08/22/19 04:46 Baso # 0.1 K/mm3 (0.0-0.1) 08/22/19 04:46 Add Manual Diff Complete 08/18/19 09:18 Total Counted 100 08/18/19 09:18 Seg Neutrophils % 71.8 % (40.0-70.0) H 08/22/19 04:46 Seg Neuts % (Manual) 67.0 % (40.0-70.0) 08/18/19 09:18 Band Neutrophils % 3.0 % 08/18/19 09:18 Lymphocytes % (Manual) 21.0 % (13.4-35.0) 08/18/19 09:18 Reactive Lymphs % (Man) 0 % 08/18/19 09:18 Monocytes % (Manual) 9.0 % (0.0-7.3) H 08/18/19 09:18 Eosinophils % (Manual) 0 % (0.0-4.3) 08/18/19 09:18 Basophils % (Manual) 0 % (0.0-1.8) 08/18/19 09:18 Metamyelocytes % 0 % 08/18/19 09:18 Myelocytes % 0 % 08/18/19 09:18 Promyelocytes % 0 % 08/18/19 09:18 Blast Cells % 0 % 08/18/19 09:18 Nucleated RBC % Not Reportable 08/18/19 09:18 Seg Neutrophils # 10.4 K/mm3 (1.8-7.7) H 08/22/19 04:46 Seg Neutrophils # Man 23.9 K/mm3 (1.8-7.7) H 08/18/19 09:18 Band Neutrophils # 1.1 K/mm3 08/18/19 09:18 Lymphocytes # (Manual) 7.5 K/mm3 (1.2-5.4) H 08/18/19 09:18 Abs React Lymphs (Man) 0.0 K/mm3 08/18/19 09:18 Monocytes # (Manual) 3.2 K/mm3 (0.0-0.8) H 08/18/19 09:18 Eosinophils # (Manual) 0.0 K/mm3 (0.0-0.4) 08/18/19 09:18 Basophils # (Manual) 0.0 K/mm3 (0.0-0.1) 08/18/19 09:18 Metamyelocytes # 0.0 K/mm3 08/18/19 09:18 Myelocytes # 0.0 K/mm3 08/18/19 09:18 Promyelocytes # 0.0 K/mm3 08/18/19 09:18 Blast Cells # 0.0 K/mm3 08/18/19 09:18 WBC Morphology Not Reportable 08/18/19 09:18 Hypersegmented Neuts Not Reportable 08/18/19 09:18 Hyposegmented Neuts Not Reportable 08/18/19 09:18 Hypogranular Neuts Not Reportable 08/18/19 09:18 Smudge Cells Not Reportable 08/18/19 09:18 Toxic Granulation Not Reportable 08/18/19 09:18 Toxic Vacuolation Not Reportable 08/18/19 09:18 Dohle Bodies Not Reportable 08/18/19 09:18 Pel[place]-Huet Anomaly Not Reportable 08/18/19 09:18 Farida Rods Not Reportable 08/18/19 09:18 Platelet Estimate Not Reportable 08/18/19 09:18 Clumped Platelets Not Reportable 08/18/19 09:18 Plt Clumps, EDTA Not Reportable 08/18/19 09:18 Large Platelets Not Reportable 08/18/19 09:18 Giant Platelets Not Reportable 08/18/19 09:18 Platelet Satelliting Not Reportable 08/18/19 09:18 Plt Morphology Comment Not Reportable 08/18/19 09:18 RBC Morphology Not Reportable 08/18/19 09:18 Dimorphic RBCs Not Reportable 08/18/19 09:18 Polychromasia Few 08/18/19 09:18 Hypochromasia Not Reportable 08/18/19 09:18 Poikilocytosis Not Reportable 08/18/19 09:18 Anisocytosis 1+ 08/18/19 09:18 Microcytosis Not Reportable 08/18/19 09:18 Macrocytosis Not Reportable 08/18/19 09:18 Spherocytes Not Reportable 08/18/19 09:18 Pappenheimer Bodies Not Reportable 08/18/19 09:18 Sickle Cells Not Reportable 08/18/19 09:18 Target Cells Not Reportable 08/18/19 09:18 Tear Drop Cells Not Reportable 08/18/19 09:18 Ovalocytes Not Reportable 08/18/19 09:18 Helmet Cells Not Reportable 08/18/19 09:18 [place] Bodies Not Reportable 08/18/19 09:18 [place] Rings Not Reportable 08/18/19 09:18 [place] Cells Not Reportable 08/18/19 09:18 Bite Cells Not Reportable 08/18/19 09:18 Crenated Cell Not Reportable 08/18/19 09:18 Elliptocytes Not Reportable 08/18/19 09:18 Acanthocytes (Spur) Not Reportable 08/18/19 09:18 Rouleaux Not Reportable 08/18/19 09:18 Hemoglobin C Crystals Not Reportable 08/18/19 09:18 Schistocytes Not Reportable 08/18/19 09:18 Malaria parasites Not Reportable 08/18/19 09:18 [place] Bodies Not Reportable 08/18/19 09:18 Hem Pathologist Commnt No 08/18/19 09:18 PT 14.2 Sec. (12.2-14.9) 08/18/19 21:03 INR 1.11 (0.87-1.13) 08/18/19 21:03 APTT 26.4 Sec. (24.2-36.6) 08/18/19 21:03 Heparin Anti-Xa Level < 0.10 U.I./ml (0.3-0.7) L 08/21/19 13:21 POC ABG pH 7.381 (7.35-7.45) 08/18/19 10:51 POC ABG pCO2 37.2 (35-45) 08/18/19 10:51 POC ABG pO2 59 (80-105) L 08/18/19 10:51 POC ABG HCO3 22.1 (22-26 mml/L) 08/18/19 10:51 POC ABG Total CO2 23 (23-27mmol/L) 08/18/19 10:51 POC ABG O2 Sat 90 08/18/19 10:51 POC ABG Base Excess -3 ((-2) - (+3)mmol/L) 08/18/19 10:51 VBG pH 7.348 (7.320-7.420) 08/18/19 10:12 FiO2 21 % 08/18/19 10:51 Sodium 142 mmol/L (137-145) 08/22/19 04:46 Potassium 3.1 mmol/L (3.6-5.0) L D 08/22/19 04:46 Chloride 101.8 mmol/L (98-107) 08/22/19 04:46 Carbon Dioxide 30 mmol/L (22-30) D 08/22/19 04:46 Anion Gap 13 mmol/L 08/22/19 04:46 BUN 6 mg/dL (7-17) L 08/22/19 04:46 Creatinine 0.4 mg/dL (0.7-1.2) L 08/22/19 04:46 Estimated GFR > 60 ml/min 08/22/19 04:46 BUN/Creatinine Ratio 15 % 08/22/19 04:46 Glucose 153 mg/dL (65-100) H 08/22/19 04:46 POC Glucose 234 (70-105) H 08/22/19 11:37 Lactic Acid 1.60 mmol/L (0.7-2.0) 08/19/19 07:55 Calcium 8.1 mg/dL (8.4-10.2) L 08/22/19 04:46 Magnesium 2.40 mg/dL (1.7-2.3) H 08/18/19 21:03 Troponin T 0.615 ng/mL (0.00-0.029) H* D 08/18/19 14:59 NT-Pro-B Natriuret Pep 2047 pg/mL (0-900) H 08/18/19 09:18 Triglycerides 170 mg/dL (2-149) H 08/18/19 09:18 Cholesterol 155 mg/dL (50-199) 08/18/19 09:18 LDL Cholesterol Direct 99 mg/dL (50-130) 08/18/19 09:18 HDL Cholesterol 45 mg/dL (40-59) 08/18/19 09:18 Cholesterol/HDL Ratio 3.44 % 08/18/19 09:18 TSH 0.719 mlU/mL (0.270-4.200) 08/18/19 21:03 Free T4 1.19 ng/dL (0.76-1.46) 08/18/19 21:03 Urine Color Yellow (Yellow) 08/18/19 18:24 Urine Turbidity Clear (Clear) 08/18/19 18:24 Urine pH 6.0 (5.0-7.0) 08/18/19 18:24 Ur Specific [place] 1.017 (1.003-1.030) 08/18/19 18:24 Urine Protein <15 mg/dl mg/dL (Negative) 08/18/19 18:24 Urine Glucose (UA) >=500 mg/dL (Negative) 08/18/19 18:24 Urine Ketones Tr mg/dL (Negative) 08/18/19 18:24 Urine Blood Neg (Negative) 08/18/19 18:24 Urine Nitrite Neg (Negative) 08/18/19 18:24 Urine Bilirubin Neg (Negative) 08/18/19 18:24 Urine Urobilinogen < 2.0 mg/dL (<2.0) 08/18/19 18:24 Ur Leukocyte Esterase Neg (Negative) 08/18/19 18:24 Urine WBC (Auto) 2.0 /HPF (0.0-6.0) 08/18/19 18:24 Urine RBC (Auto) 1.0 /HPF (0.0-6.0) 08/18/19 18:24 U Epithel Cells (Auto) 1.0 /HPF (0-13.0) 08/18/19 18:24 Urine Bacteria (Auto) 3+ /HPF (Negative) 08/18/19 18:24 Urine Mucus Few /HPF 08/18/19 18:24 Active Medications - Current Medications Current Medications: Generic Name Dose Route Start Last Admin Trade Name Freq PRN Reason Stop Dose Admin Acetaminophen 650 mg 08/18/19 10:54 Tylenol PO Q4H PRN Pain MILD(1-3)/Fever >100.5/RAMIREZ Acetaminophen/Hydrocodone Bitart 1 each 08/18/19 10:57 [place] 7.5/325 PO Q6H PRN Pain, Moderate (4-6) Albuterol 2.5 mg 08/18/19 10:54 08/22/19 02:43 Proventil IH 2.5 mg Q4HRT PRN Administration Shortness Of Breath Albuterol/Ipratropium 1 ampul 08/19/19 20:00 08/22/19 14:04 Duoneb *Not For Prn Use* IH Not Given TIDRT HAMZAH Alprazolam 0.25 mg 08/19/19 11:39 08/20/19 21:41 Xanax PO 0.25 mg Q8H PRN Administration Anxiety Arformoterol Tartrate 15 mcg 08/19/19 20:00 08/22/19 08:59 Brovana Nebu IH 15 mcg Q12HRT HAMZAH Administration Budesonide 0.5 mg 08/19/19 20:00 08/22/19 08:59 Pulmicort IH 0.5 mg Q12HRT HAMZAH Administration Carvedilol 3.125 mg 08/21/19 22:00 08/22/19 09:38 Coreg PO 3.125 mg BID HAMZAH Administration Dextrose 50 ml 08/18/19 16:09 D50w (25gm) Syringe IV Q30MIN PRN Hypoglycemia Protocol Docusate Sodium 100 mg 08/18/19 22:00 08/22/19 09:38 Colace PO 100 mg BID HAMZAH Administration Famotidine 20 mg 08/18/19 22:00 08/22/19 09:38 Pepcid PO 20 mg BID HAMZAH Administration Furosemide 40 mg 08/21/19 18:00 08/22/19 06:21 Lasix PO 40 mg 0600,1800 HAMZAH Administration Gabapentin 300 mg 08/18/19 14:00 08/22/19 15:51 Gabapentin PO 300 mg Q8HR HAMZAH Administration Heparin Sodium (Porcine) 5,000 unit 08/21/19 22:00 08/22/19 15:51 Heparin SUB-Q 5,000 unit Q8HR HAMZAH Administration Ceftriaxone Sodium 2 gm in 100 mls @ 200 mls/hr 08/19/19 10:00 08/22/19 09:38 Rocephin/Ns 2 Gm/100 Ml IV 08/23/19 10:29 200 mls/hr Q24HR HAMZAH Administration Protocol Azithromycin 500 mg/ Sodium 250 mls @ 250 mls/hr 08/19/19 11:00 08/22/19 11:13 Chloride IV 08/23/19 11:59 250 mls/hr Q24H HAMZAH Administration Protocol Sodium Chloride 1,000 mls @ 62 mls/hr 08/18/19 17:00 08/22/19 00:59 Nacl 0.9% 1000 Ml IV 62 mls/hr DIRECT HAMZAH Administration Insulin Glargine 10 units 08/21/19 22:00 08/21/19 22:49 Lantus SUB-Q 10 units QHS HAMZHA Administration Insulin Human Lispro 0 unit 08/19/19 07:30 08/22/19 11:59 Humalog SUB-Q 3 unit ACHS HAMZAH Administration Protocol Lisinopril 5 mg 08/22/19 10:00 08/22/19 09:37 Zestril PO 5 mg QDAY HAMZAH Administration Meclizine HCl 25 mg 08/18/19 10:57 Antivert PO TID PRN Vertigo Ondansetron HCl 4 mg 08/18/19 10:54 Zofran IV Q8H PRN Nausea And Vomiting Senna 8.6 mg 08/18/19 10:57 Senokot PO Q12H PRN Laxative Effect Sodium Chloride 10 ml 08/18/19 22:00 08/22/19 11:14 Sodium Chloride Flush Syringe 10 Ml IV 10 ml BID HAMZAH Administration Sodium Chloride 10 ml 08/18/19 10:54 Sodium Chloride Flush Syringe 10 Ml IV PRN PRN LINE FLUSH Spironolactone 12.5 mg 08/22/19 10:00 08/22/19 09:38 Aldactone PO 12.5 mg QDAY HAMZAH Administration
[2019-08-22] MEDS: INSULIN GLARGINE 100 UNITS/ML SUB-Q SCH (22:35)
[2019-08-23] MEDS: HEPARIN 5,000 UNIT/1 ML VIAL SUB-Q SCH ×3 (05:31→21:23)
[2019-08-23] MEDS: GABAPENTIN 300 MG CAP PO SCH ×3 (05:31→21:24)
[2019-08-23] MEDS: FUROSEMIDE 40 MG TAB PO SCH ×2 (05:31→20:30)
[2019-08-23 07:12] LABS: Basophils # (Auto) 0.1 K/mm3 (0.0-0.1); Basophils % (Auto) 0.4 % (0.0-1.8); Eosinophils # (Auto) 0.3 K/mm3 (0.0-0.4); Hematocrit 33.9 % (30.3-42.9); Hemoglobin 10.8 gm/dl (10.1-14.3); Lymphocytes # (Auto) 3.1 K/mm3 (1.2-5.4); Lymphocytes % (Auto) 19.1 % (13.4-35.0); Mean Corpuscular HGB Conc 32 % (30-34); Mean Corpuscular Volume 83 fl (79-97); Monocytes % (Auto) 6.2 % (0.0-7.3); Platelet Count 293 K/mm3 (140-440); Red Blood Count 4.11 M/mm3 (3.65-5.03); Red Cell Distribution Width 15.5 % (13.2-15.2)
[2019-08-23 07:18] LABS: BUN/Creatinine Ratio 23; Blood Urea Nitrogen 9 mg/dL (7-17); Calcium 8.5 mg/dL (8.4-10.2); Hemolysis Index 1
--- NOTE | 2019-08-23 07:46 | XRay Report ---
CHEST 1 VIEW INDICATION / CLINICAL INFORMATION: LLL PNA. Pneumonia COMPARISON: 08/18/2019 FINDINGS: SUPPORT DEVICES: None. HEART / MEDIASTINUM: No significant abnormality. LUNGS / PLEURA: Extensive airspace consolidation primarily to the left lower lung concerning for pneu monia. Signer Name: Damon Escoto MD Signed: 08/23/2019 7:42 AM Workstation Name: [id number]
[2019-08-23] MEDS: BUDESONIDE 0.5 MG/2 ML NEBU IH SCH ×2 (08:18→20:31)
[2019-08-23] MEDS: ARFORMOTEROL 15 MCG/2 ML NEBU IH SCH ×2 (08:18→20:31)
[2019-08-23] MEDS: IPRATROPIUM/ALBUTEROL SULFATE 3 ML AMPUL.NEB IH SCH ×3 (08:22→20:31)
[2019-08-23] MEDS: INSULIN LISPRO 100 UNIT/ML SUB-Q SCH ×4 (08:31→22:02)
--- NOTE | 2019-08-23 10:26 | Progress Note ---
Assessment and Plan Dilated Cardiomyopathy, unknown duration an echocardiogram this admission reveals 4 chamber dilated cardiomyopathy with a decrease LV systolic function, ejection fraction 25-30%. Acute Hypoxic Respiratory failure chest x-ray reports left basilar opacity concerning for pneumonia AMS -resolved Leukocytosis COPD Hypertension Diabetes Obesity PAD s/p left AKA Mild rise of troponin ECG is sinus rhythm, no acute ischemic changes. Recommendations: Advised fluid/sodium restriction. Continue medical therapy for dilated cardiomyopathy. Elective noninvasive ischemic evaluation will be done as an outpatient. Subjective Date of service: 08/23/19 Interval history: Patient has no complaints. Currently, on high flow oxygen. No distress noted. Objective Vital Signs Temp Pulse Pulse Pulse Pulse Pulse Pulse 08/23/19 08:02 98.4 F 76 08/23/19 04:15 98.3 F 89 08/23/19 00:24 97.9 F 82 08/22/19 23:00 94 H 94 H 08/22/19 19:59 08/22/19 19:55 98.1 F 77 125 H 125 H 125 H 08/22/19 16:45 98.4 F 86 08/22/19 11:39 97.9 F 94 H Resp Resp Resp Resp BP BP Pulse Ox 08/23/19 08:02 20 133/66 99 08/23/19 04:15 18 110/43 90 08/23/19 00:24 18 103/48 91 08/22/19 23:00 18 98 08/22/19 19:59 97 08/22/19 19:55 18 26 H 26 H 26 H 143/94 100 08/22/19 16:45 18 115/58 91 08/22/19 11:39 18 139/74 92 - Physical Examination General: No Apparent Distress HEENT: Positive: PERRL Neck: Positive: trachea midline Cardiac: Positive: Reg Rate and Rhythm Lungs: Positive: Decreased Breath Sounds Neuro: Positive: Grossly Intact Extremities: Present: Other (left AKA). Absent: edema - Labs and Meds CBC 08/23/19 Range/Units 05:50 WBC 16.2 H (4.5-11.0) K/mm3 RBC 4.11 (3.65-5.03) M/mm3 Hgb 10.8 (10.1-14.3) gm/dl Hct 33.9 (30.3-42.9) % Plt Count 293 (140-440) K/mm3 Lymph # 3.1 (1.2-5.4) K/mm3 [place] # 1.0 H (0.0-0.8) K/mm3 Eos # 0.3 (0.0-0.4) K/mm3 Baso # 0.1 (0.0-0.1) K/mm3 Comprehensive Metabolic Panel 08/23/19 Range/Units 05:50 Sodium 144 (137-145) mmol/L Potassium 3.2 L (3.6-5.0) mmol/L Chloride 100.7 (98-107) mmol/L Carbon Dioxide 25 (22-30) mmol/L BUN 9 (7-17) mg/dL Creatinine 0.4 L (0.7-1.2) mg/dL Glucose 187 H (65-100) mg/dL Calcium 8.5 (8.4-10.2) mg/dL
[2019-08-23] MEDS: DOCUSATE SODIUM 100 MG CAP PO SCH ×2 (11:22→21:24)
[2019-08-23] MEDS: LISINOPRIL 5 MG TAB PO SCH (11:22)
[2019-08-23] MEDS: carvediloL 3.125 MG TAB PO SCH ×2 (11:22→21:24)
[2019-08-23] MEDS: SPIRONOLACTONE 25 MG TAB PO SCH (11:23)
[2019-08-23] MEDS: FAMOTIDINE 20 MG TAB PO SCH ×2 (11:23→21:24)
[2019-08-23] MEDS: cefTRIAXone/NS 2 GM/100 ML 2 GM/100 ML BAG IV SCH ×2 (11:26→20:29)
[2019-08-23] MEDS: AZITHROMYCIN 500 MG in SODIUM CHLORIDE 0.9% 250ML 250 ML IV SCH (11:54)
--- NOTE | 2019-08-23 11:59 | Progress Note ---
Assessment and Plan Assessment and plan: Acute Respiratory failure. Etiology secondary to PNA and COPD. patient noncompliant with BiPAP. Patient currently with HFNC @ 15L. consult pulmonary. Acute CHF exac. ECHO reveals EF 25%. Outpatient ischemic evaluation once respiratory status is stable. LLL Pneumonia Chest x-ray reports left basilar opacity concerning for pneumonia. Recheck chest x-ray today Sepsis. Etiology sec to pneumonia. Patient with worsening leukocytosis. Consult ID. Toxic metabolic encephalopathy. Ressolving COPD. Cont bronchodilators Hypertension. Home BP meds Diabetes Mellitus II. 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 Pass Worker on wt. loss and exercise Left AKA. PT/OT History Interval history: Asa noncompliant with BiPAP. Patient currently on HFNC @ 15L Hospitalist Physical - Constitutional Vitals: Temp Pulse Resp BP Pulse Ox 98.4 F 76 20 133/66 99 08/23/19 08:02 08/23/19 08:02 08/23/19 08:02 08/23/19 08:02 08/23/19 08:02 General appearance: Present: mild distress, obese - EENT Eyes: Present: PERRL, EOM intact ENT: hearing intact, clear oral mucosa, dentition normal - Neck Neck: Present: supple, normal ROM - Respiratory Respiratory effort: normal Respiratory: bilateral: diminished, rales, rhonchi - Cardiovascular Rhythm: regular Heart Sounds: Present: S1 & S2. Absent: gallop, rub - Extremities Extremities: no ischemia, No edema, Full ROM - Abdominal General gastrointestinal: soft, non-tender, non-distended, normal bowel sounds - Integumentary Integumentary: Present: clear, warm, dry - Neurologic Neurologic: CNII-XII intact, moves all extremities Results - Labs CBC & Chem 7: 08/23/19 05:50 08/23/19 05:50 Labs: Laboratory Last Values WBC 16.2 K/mm3 (4.5-11.0) H 08/23/19 05:50 RBC 4.11 M/mm3 (3.65-5.03) 08/23/19 05:50 Hgb 10.8 gm/dl (10.1-14.3) 08/23/19 05:50 Hct 33.9 % (30.3-42.9) 08/23/19 05:50 MCV 83 fl (79-97) 08/23/19 05:50 MCH 26 pg (28-32) L 08/23/19 05:50 MCHC 32 % (30-34) 08/23/19 05:50 RDW 15.5 % (13.2-15.2) H 08/23/19 05:50 Plt Count 293 K/mm3 (140-440) 08/23/19 05:50 Lymph % (Auto) 19.1 % (13.4-35.0) 08/23/19 05:50 [place] % (Auto) 6.2 % (0.0-7.3) 08/23/19 05:50 Eos % (Auto) 2.0 % (0.0-4.3) 08/23/19 05:50 Baso % (Auto) 0.4 % (0.0-1.8) 08/23/19 05:50 Lymph # 3.1 K/mm3 (1.2-5.4) 08/23/19 05:50 [place] # 1.0 K/mm3 (0.0-0.8) H 08/23/19 05:50 Eos # 0.3 K/mm3 (0.0-0.4) 08/23/19 05:50 Baso # 0.1 K/mm3 (0.0-0.1) 08/23/19 05:50 Add Manual Diff Complete 08/18/19 09:18 Total Counted 100 08/18/19 09:18 Seg Neutrophils % 72.3 % (40.0-70.0) H 08/23/19 05:50 Seg Neuts % (Manual) 67.0 % (40.0-70.0) 08/18/19 09:18 Band Neutrophils % 3.0 % 08/18/19 09:18 Lymphocytes % (Manual) 21.0 % (13.4-35.0) 08/18/19 09:18 Reactive Lymphs % (Man) 0 % 08/18/19 09:18 Monocytes % (Manual) 9.0 % (0.0-7.3) H 08/18/19 09:18 Eosinophils % (Manual) 0 % (0.0-4.3) 08/18/19 09:18 Basophils % (Manual) 0 % (0.0-1.8) 08/18/19 09:18 Metamyelocytes % 0 % 08/18/19 09:18 Myelocytes % 0 % 08/18/19 09:18 Promyelocytes % 0 % 08/18/19 09:18 Blast Cells % 0 % 08/18/19 09:18 Nucleated RBC % Not Reportable 08/18/19 09:18 Seg Neutrophils # 11.7 K/mm3 (1.8-7.7) H 08/23/19 05:50 Seg Neutrophils # Man 23.9 K/mm3 (1.8-7.7) H 08/18/19 09:18 Band Neutrophils # 1.1 K/mm3 08/18/19 09:18 Lymphocytes # (Manual) 7.5 K/mm3 (1.2-5.4) H 08/18/19 09:18 Abs React Lymphs (Man) 0.0 K/mm3 08/18/19 09:18 Monocytes # (Manual) 3.2 K/mm3 (0.0-0.8) H 08/18/19 09:18 Eosinophils # (Manual) 0.0 K/mm3 (0.0-0.4) 08/18/19 09:18 Basophils # (Manual) 0.0 K/mm3 (0.0-0.1) 08/18/19 09:18 Metamyelocytes # 0.0 K/mm3 08/18/19 09:18 Myelocytes # 0.0 K/mm3 08/18/19 09:18 Promyelocytes # 0.0 K/mm3 08/18/19 09:18 Blast Cells # 0.0 K/mm3 08/18/19 09:18 WBC Morphology Not Reportable 08/18/19 09:18 Hypersegmented Neuts Not Reportable 08/18/19 09:18 Hyposegmented Neuts Not Reportable 08/18/19 09:18 Hypogranular Neuts Not Reportable 08/18/19 09:18 Smudge Cells Not Reportable 08/18/19 09:18 Toxic Granulation Not Reportable 08/18/19 09:18 Toxic Vacuolation Not Reportable 08/18/19 09:18 Dohle Bodies Not Reportable 08/18/19 09:18 Pelger-Huet Anomaly Not Reportable 08/18/19 09:18 Farida Rods Not Reportable 08/18/19 09:18 Platelet Estimate Not Reportable 08/18/19 09:18 Clumped Platelets Not Reportable 08/18/19 09:18 Plt Clumps, EDTA Not Reportable 08/18/19 09:18 Large Platelets Not Reportable 08/18/19 09:18 Giant Platelets Not Reportable 08/18/19 09:18 Platelet Satelliting Not Reportable 08/18/19 09:18 Plt Morphology Comment Not Reportable 08/18/19 09:18 RBC Morphology Not Reportable 08/18/19 09:18 Dimorphic RBCs Not Reportable 08/18/19 09:18 Polychromasia Few 08/18/19 09:18 Hypochromasia Not Reportable 08/18/19 09:18 Poikilocytosis Not Reportable 08/18/19 09:18 Anisocytosis 1+ 08/18/19 09:18 Microcytosis Not Reportable 08/18/19 09:18 Macrocytosis Not Reportable 08/18/19 09:18 Spherocytes Not Reportable 08/18/19 09:18 Pappenheimer Bodies Not Reportable 08/18/19 09:18 Sickle Cells Not Reportable 08/18/19 09:18 Target Cells Not Reportable 08/18/19 09:18 Tear Drop Cells Not Reportable 08/18/19 09:18 Ovalocytes Not Reportable 08/18/19 09:18 Helmet Cells Not Reportable 08/18/19 09:18 [place] Bodies Not Reportable 08/18/19 09:18 [place] Rings Not Reportable 08/18/19 09:18 [place] Cells Not Reportable 08/18/19 09:18 Bite Cells Not Reportable 08/18/19 09:18 Crenated Cell Not Reportable 08/18/19 09:18 Elliptocytes Not Reportable 08/18/19 09:18 Acanthocytes (Spur) Not Reportable 08/18/19 09:18 Rouleaux Not Reportable 08/18/19 09:18 Hemoglobin C Crystals Not Reportable 08/18/19 09:18 Schistocytes Not Reportable 08/18/19 09:18 Malaria parasites Not Reportable 08/18/19 09:18 [place] Bodies Not Reportable 08/18/19 09:18 Hem Pathologist Commnt No 08/18/19 09:18 PT 14.2 Sec. (12.2-14.9) 08/18/19 21:03 INR 1.11 (0.87-1.13) 08/18/19 21:03 APTT 26.4 Sec. (24.2-36.6) 08/18/19 21:03 Heparin Anti-Xa Level < 0.10 U.I./ml (0.3-0.7) L 08/21/19 13:21 POC ABG pH 7.381 (7.35-7.45) 08/18/19 10:51 POC ABG pCO2 37.2 (35-45) 08/18/19 10:51 POC ABG pO2 59 (80-105) L 08/18/19 10:51 POC ABG HCO3 22.1 (22-26 mml/L) 08/18/19 10:51 POC ABG Total CO2 23 (23-27mmol/L) 08/18/19 10:51 POC ABG O2 Sat 90 08/18/19 10:51 POC ABG Base Excess -3 ((-2) - (+3)mmol/L) 08/18/19 10:51 VBG pH 7.348 (7.320-7.420) 08/18/19 10:12 FiO2 21 % 08/18/19 10:51 Sodium 144 mmol/L (137-145) 08/23/19 05:50 Potassium 3.2 mmol/L (3.6-5.0) L 08/23/19 05:50 Chloride 100.7 mmol/L (98-107) 08/23/19 05:50 Carbon Dioxide 25 mmol/L (22-30) 08/23/19 05:50 Anion Gap 22 mmol/L 08/23/19 05:50 BUN 9 mg/dL (7-17) 08/23/19 05:50 Creatinine 0.4 mg/dL (0.7-1.2) L 08/23/19 05:50 Estimated GFR > 60 ml/min 08/23/19 05:50 BUN/Creatinine Ratio 23 % 08/23/19 05:50 Glucose 187 mg/dL (65-100) H 08/23/19 05:50 POC Glucose 240 (70-105) H 08/23/19 08:56 Lactic Acid 1.60 mmol/L (0.7-2.0) 08/19/19 07:55 Calcium 8.5 mg/dL (8.4-10.2) 08/23/19 05:50 Magnesium 2.40 mg/dL (1.7-2.3) H 08/18/19 21:03 Troponin T 0.615 ng/mL (0.00-0.029) H* D 08/18/19 14:59 NT-Pro-B Natriuret Pep 2047 pg/mL (0-900) H 08/18/19 09:18 Triglycerides 170 mg/dL (2-149) H 08/18/19 09:18 Cholesterol 155 mg/dL (50-199) 08/18/19 09:18 LDL Cholesterol Direct 99 mg/dL (50-130) 08/18/19 09:18 HDL Cholesterol 45 mg/dL (40-59) 08/18/19 09:18 Cholesterol/HDL Ratio 3.44 % 08/18/19 09:18 TSH 0.719 mlU/mL (0.270-4.200) 08/18/19 21:03 Free T4 1.19 ng/dL (0.76-1.46) 08/18/19 21:03 Urine Color Yellow (Yellow) 08/18/19 18:24 Urine Turbidity Clear (Clear) 08/18/19 18:24 Urine pH 6.0 (5.0-7.0) 08/18/19 18:24 Ur Specific Mouthcard 1.017 (1.003-1.030) 08/18/19 18:24 Urine Protein <15 mg/dl mg/dL (Negative) 08/18/19 18:24 Urine Glucose (UA) >=500 mg/dL (Negative) 08/18/19 18:24 Urine Ketones Tr mg/dL (Negative) 08/18/19 18:24 Urine Blood Neg (Negative) 08/18/19 18:24 Urine Nitrite Neg (Negative) 08/18/19 18:24 Urine Bilirubin Neg (Negative) 08/18/19 18:24 Urine Urobilinogen < 2.0 mg/dL (<2.0) 08/18/19 18:24 Ur Leukocyte Esterase Neg (Negative) 08/18/19 18:24 Urine WBC (Auto) 2.0 /HPF (0.0-6.0) 08/18/19 18:24 Urine RBC (Auto) 1.0 /HPF (0.0-6.0) 08/18/19 18:24 U Epithel Cells (Auto) 1.0 /HPF (0-13.0) 08/18/19 18:24 Urine Bacteria (Auto) 3+ /HPF (Negative) 08/18/19 18:24 Urine Mucus Few /HPF 08/18/19 18:24 Active Medications - Current Medications Current Medications: Generic Name Dose Route Start Last Admin Trade Name Freq PRN Reason Stop Dose Admin Acetaminophen 650 mg 08/18/19 10:54 Tylenol PO Q4H PRN Pain MILD(1-3)/Fever >100.5/RAMIREZ Acetaminophen/Hydrocodone Bitart 1 each 08/18/19 10:57 [place] 7.5/325 PO Q6H PRN Pain, Moderate (4-6) Albuterol 2.5 mg 08/18/19 10:54 08/22/19 02:43 Proventil IH 2.5 mg Q4HRT PRN Administration Shortness Of Breath Albuterol/Ipratropium 1 ampul 08/19/19 20:00 08/23/19 08:22 Duoneb *Not For Prn Use* IH 1 ampul TIDRT HAMZAH Administration Alprazolam 0.25 mg 08/19/19 11:39 08/20/19 21:41 Xanax PO 0.25 mg Q8H PRN Administration Anxiety Arformoterol Tartrate 15 mcg 08/19/19 20:00 08/23/19 08:18 Brovana Nebu IH 15 mcg Q12HRT HAMZAH Administration Budesonide 0.5 mg 08/19/19 20:00 08/23/19 08:18 Pulmicort IH 0.5 mg Q12HRT HAMZAH Administration Carvedilol 3.125 mg 08/21/19 22:00 08/23/19 11:22 Coreg PO 3.125 mg BID HAMZAH Administration Dextrose 50 ml 08/18/19 16:09 D50w (25gm) Syringe IV Q30MIN PRN Hypoglycemia Protocol Docusate Sodium 100 mg 08/18/19 22:00 08/23/19 11:22 Colace PO 100 mg BID HAMZAH Administration Famotidine 20 mg 08/18/19 22:00 08/23/19 11:23 Pepcid PO 20 mg BID HAMZAH Administration Furosemide 40 mg 12/04/19 18:00 08/23/19 05:31 Lasix PO 40 mg 0600,1800 HAMZAH Administration Gabapentin 300 mg 08/18/19 14:00 08/23/19 05:31 Gabapentin PO 300 mg Q8HR HAMZAH Administration Heparin Sodium (Porcine) 5,000 unit 08/21/19 22:00 08/23/19 05:31 Heparin SUB-Q 5,000 unit Q8HR HAMZAH Administration Azithromycin 500 mg/ Sodium 250 mls @ 250 mls/hr 08/19/19 11:00 08/23/19 11:54 Chloride IV 08/23/19 11:59 250 mls/hr Q24H HAMZAH Administration Protocol Sodium Chloride 1,000 mls @ 62 mls/hr 08/18/19 17:00 08/22/19 00:59 Nacl 0.9% 1000 Ml IV 62 mls/hr DIRECT HAMZAH Administration Insulin Glargine 10 units 08/21/19 22:00 08/22/19 22:35 Lantus SUB-Q 10 units QHS HAMZAH Administration Insulin Human Lispro 0 unit 08/19/19 07:30 08/22/19 22:40 Humalog SUB-Q 6 unit ACHS HAMZAH Administration Protocol Lisinopril 5 mg 08/22/19 10:00 08/23/19 11:22 Zestril PO 5 mg QDAY HAMZAH Administration Meclizine HCl 25 mg 08/18/19 10:57 Antivert PO TID PRN Vertigo Ondansetron HCl 4 mg 08/18/19 10:54 Zofran IV Q8H PRN Nausea And Vomiting Senna 8.6 mg 08/18/19 10:57 Senokot PO Q12H PRN Laxative Effect Sodium Chloride 10 ml 08/18/19 22:00 08/22/19 22:36 Sodium Chloride Flush Syringe 10 Ml IV 10 ml BID HAMZAH Administration Sodium Chloride 10 ml 08/18/19 10:54 Sodium Chloride Flush Syringe 10 Ml IV PRN PRN LINE FLUSH Spironolactone 12.5 mg 08/22/19 10:00 08/23/19 11:23 Aldactone PO 12.5 mg QDAY HAMZAH Administration
--- NOTE | 2019-08-23 15:59 | Consultation ---
History of Present Illness - Reason for Consult Consult date: 08/23/19 Pneumonia, increasing WBC Requesting physician: CLARISSA MOLINA - History of Present Illness The patient is a 54-year-old female with COPD, congestive heart failure, hypertension, DM-2, active smoker, prior left AKA who presented to the emergency room here on 08/18/2019 with complaints of shortness of breath. Was associated with a cough and brownish sputum production. Chest x-ray showed evidence of a left lower lobe pneumonia. Patient was started empirically on IV ceftriaxone and azithromycin. Completed her 5 days today. Due to increase in WBC, infectious diseases was consulted today. She was recently hospitalized for 3 days from 08/15/2019 to 08/17/2019 at [facility] with COPD, acute exacerbation and treated with steroids and levofloxacin. She has been afebrile here. Review of Systems: General: no fevers,chills or rigors HEENT: no new visual disturbance Respiratory: + cough, sputum, shortness of breath Cardiovascular: No chest pain, syncope Gastrointestinal: No nausea, vomiting or diarrhea Genitourinary: No dysuria or hematuria Musculoskeletal: No new or worsening neck pain or back pain Neurologic: No headaches, seizures Hematologic: No easy bruising or bleeding Endocrine: No night sweats or acute weight loss Skin: negative for rash, jaundice Psychiatric: No suicidal or homicidal ideation Past History Past Medical History: other (see HPI) Past Surgical History: Other (Left AKA, D&C) Social history: , smoking. denies: alcohol abuse, prescription drug abuse Family history: no significant family history (reviewed) Medications and Allergies Allergies Allergy/AdvReac Type Severity Reaction Status Date / Time No Known Allergies Allergy Verified 08/18/19 10:10 Home Medications Medication Instructions Recorded Confirmed Last Taken Type Docusate Sodium [Colace CAP] 100 mg PO BID #1 capsule 07/20/16 07/27/16 Unknown Rx Famotidine [Pepcid] 20 mg PO BID #60 tablet 07/20/16 07/28/16 07/23/16 Rx HYDROcodone/APAP 7.5-325 [[place] 1 each PO Q6H PRN #30 tablet 07/20/16 07/28/16 07/24/16 Rx 7.5-325 mg TAB] Lisinopril [Zestril TAB] 20 mg PO QDAY #30 tablet 07/20/16 08/18/19 07/28/16 Rx Sennosides Tab [Senokot] 8.6 mg PO Q12H PRN #1 tablet 07/20/16 07/28/16 Unknown Rx glyBURIDE [Diabeta] 10 mg PO BIDDIAB #60 tablet 07/20/16 07/28/16 07/27/16 Rx hydroCHLOROthiazide [HCTZ] 25 mg PO QDAY #30 tablet 07/20/16 08/18/19 07/27/16 Rx Clindamycin [Clindamycin CAP] 450 mg PO TID 07/27/16 07/27/16 Unknown History Rivaroxaban [Xarelto] 20 mg PO QDAY 07/27/16 08/18/19 07/26/16 History Meclizine [Antivert] 25 mg PO TID PRN #20 tablet 10/27/17 Unknown Rx Furosemide [Lasix TAB] 08/18/19 Unknown History Furosemide [Lasix TAB] 1 tab PO DAILY 08/18/19 08/18/19 Unknown History Gabapentin 1 cap PO BID 08/18/19 08/18/19 Unknown History Insulin Glargine,Hum.rec.anlog 40 units SUB-Q DAILY 08/18/19 08/18/19 Unknown History [Lantus Solostar] Nystatin Cream [Mycostatin Cream] 08/18/19 Unknown History Nystatin Cream [Mycostatin Cream] 1 dose BID 08/18/19 08/18/19 Unknown History Omeprazole 1 cap PO DAILY 08/18/19 08/18/19 Unknown History Pravastatin [Pravachol] 1 tab PO DAILY 08/18/19 08/18/19 Unknown History Rivaroxaban [Xarelto] 08/18/19 Unknown History hydrOXYzine HCL [Atarax] 1 tab PO Q8HR PRN 08/18/19 08/18/19 Unknown History Active Meds: Active Medications Acetaminophen (Tylenol) 650 mg PO Q4H PRN PRN Reason: Pain MILD(1-3)/Fever >100.5/RAMIREZ Acetaminophen/Hydrocodone Bitart ([place] 7.5/325) 1 each PO Q6H PRN PRN Reason: Pain, Moderate (4-6) Albuterol (Proventil) 2.5 mg IH Q4HRT PRN PRN Reason: Shortness Of Breath Last Admin: 08/22/19 02:43 Dose: 2.5 mg Documented by: Albuterol/Ipratropium (Duoneb *Not For Prn Use*) 1 ampul IH TIDRT [facility] Last Admin: 08/23/19 13:13 Dose: 1 ampul Documented by: Alprazolam (Xanax) 0.25 mg PO Q8H PRN PRN Reason: Anxiety Last Admin: 08/20/19 21:41 Dose: 0.25 mg Documented by: Arformoterol Tartrate (Brovana Nebu) 15 mcg IH Q12HRT [facility] Last Admin: 08/23/19 08:18 Dose: 15 mcg Documented by: Budesonide (Pulmicort) 0.5 mg IH Q12HRT [facility] Last Admin: 08/23/19 08:18 Dose: 0.5 mg Documented by: Carvedilol (Coreg) 3.125 mg PO BID [facility] Last Admin: 08/23/19 11:22 Dose: 3.125 mg Documented by: Dextrose (D50w (25gm) Syringe) 50 ml IV Q30MIN PRN; Protocol PRN Reason: Hypoglycemia Docusate Sodium (Colace) 100 mg PO BID [facility] Last Admin: 08/23/19 11:22 Dose: 100 mg Documented by: Famotidine (Pepcid) 20 mg PO BID [facility] Last Admin: 08/23/19 11:23 Dose: 20 mg Documented by: Furosemide (Lasix) 40 mg PO 0600,1800 [facility] Last Admin: 08/23/19 05:31 Dose: 40 mg Documented by: Gabapentin (Gabapentin) 300 mg PO Q8HR [facility] Last Admin: 08/23/19 05:31 Dose: 300 mg Documented by: Heparin Sodium (Porcine) (Heparin) 5,000 unit SUB-Q Q8HR [facility] Last Admin: 08/23/19 05:31 Dose: 5,000 unit Documented by: Sodium Chloride (Nacl 0.9% 1000 Ml) 1,000 mls @ 62 mls/hr IV DIRECT [facility] Last Admin: 08/22/19 00:59 Dose: 62 mls/hr Documented by: Insulin Glargine (Lantus) 10 units SUB-Q QHS [facility] Last Admin: 08/22/19 22:35 Dose: 10 units Documented by: Insulin Human Lispro (Humalog) 0 unit SUB-Q ACHS [facility]; Protocol Last Admin: 08/22/19 22:40 Dose: 6 unit Documented by: Lisinopril (Zestril) 5 mg PO QDAY [facility] Last Admin: 08/23/19 11:22 Dose: 5 mg Documented by: Meclizine HCl (Antivert) 25 mg PO TID PRN PRN Reason: Vertigo Ondansetron HCl (Zofran) 4 mg IV Q8H PRN PRN Reason: Nausea And Vomiting Senna (Senokot) 8.6 mg PO Q12H PRN PRN Reason: Laxative Effect Sodium Chloride (Sodium Chloride Flush Syringe 10 Ml) 10 ml IV BID [facility] Last Admin: 08/22/19 22:36 Dose: 10 ml Documented by: Sodium Chloride (Sodium Chloride Flush Syringe 10 Ml) 10 ml IV PRN PRN PRN Reason: LINE FLUSH Spironolactone (Aldactone) 12.5 mg PO QDAY [facility] Last Admin: 08/23/19 11:23 Dose: 12.5 mg Documented by: Physical Examination - Physical Exam Narrative exam: Physical Exam: Constitutional: Alert, cooperative. No acute distress Head, Ears, Nose: Normocephalic, atraumatic. External ears, nose normal Eyes: Conjunctivae/corneas clear. No icterus. No ptosis. Neck: Supple, no meningeal signs Oral: dentition poor, no thrush Cardiovascular: S1, S2 normal. Respiratory: L basal crackles and decreased air entry GI: Soft, non-tender; bowel sounds normal. No peritoneal signs Musculoskeletal: No pedal edema, no cyanosis. Left AKA stump well healed Skin: No rash or abscess Hem/Lymphatic: No palpable cervical or supraclavicular nodes. No lymphangitis Psych: Mood ok. Affect normal Neurological: Awake, alert, oriented. No gross abnormality - Constitutional Vitals: Vital Signs Temp Pulse Resp BP Pulse Ox 99.1 F 100 H 18 99/47 95 08/23/19 12:14 08/23/19 13:13 08/23/19 13:13 08/23/19 12:14 08/23/19 13:18 Temperature -Last 24 Hours Temperature 99.1 F Temperature 98.4 F Temperature 98.3 F Temperature 97.9 F Temperature 98.1 F Temperature 98.4 F Results - Labs CBC & Chem 7: 08/23/19 05:50 08/23/19 05:50 Labs: Abnormal lab results 08/22/19 08/22/19 08/23/19 Range/Units 16:51 20:38 05:50 WBC 16.2 H (4.5-11.0) K/mm3 MCH 26 L (28-32) pg RDW 15.5 H (13.2-15.2) % [place] # 1.0 H (0.0-0.8) K/mm3 Seg Neutrophils % 72.3 H (40.0-70.0) % Seg Neutrophils # 11.7 H (1.8-7.7) K/mm3 Potassium (3.6-5.0) mmol/L Creatinine (0.7-1.2) mg/dL Glucose (65-100) mg/dL POC Glucose 294 H 373 H (70-105) 08/23/19 08/23/19 08/23/19 Range/Units 05:50 08:56 12:20 WBC (4.5-11.0) K/mm3 MCH (28-32) pg RDW (13.2-15.2) % [place] # (0.0-0.8) K/mm3 Seg Neutrophils % (40.0-70.0) % Seg Neutrophils # (1.8-7.7) K/mm3 Potassium 3.2 L (3.6-5.0) mmol/L Creatinine 0.4 L (0.7-1.2) mg/dL Glucose 187 H (65-100) mg/dL POC Glucose 240 H 262 H (70-105) - Imaging and Cardiology Chest x-ray: report reviewed, image reviewed (Left lower lobe pneumonia with likely effusion) Assessment and Plan Cultures: 08/18/2019 blood culture: No growth 08/18/2019 MRSA nasal culture: Negative A/P: 54-year-old female with COPD, congestive heart failure, hypertension, DM-2, active smoker, prior left AKA who presented to the emergency room here on 08/18/2019 with complaints of shortness of breath: 1) Sepsis, secondary to left lower lobe pneumonia, possible parapneumonic effusion which may be the cause of ongoing leukocytosis. Although the WBC count is much improved compared to admission. 2) Diabetes mellitus type 2, uncontrolled 3) Tobacco abuse: recommended cessation 4) Poor dentition: dental f/u as outpatient. Recs: restarted IV Ceftriaxone 2 gm daily sputum culture ordered Strep pneumococcal Ag ordered consider L thoracentesis with fluid analysis and culture D/W Dr. Molina. Deidra Lopez MD, FACP [facility] ([facility]) C: [phone] O: [phone] F: [phone]
[2019-08-23] MEDS: ALPRAZolam 0.25 MG TAB PO PRN (19:51)
[2019-08-23] MEDS: ACETAMINOPHEN 325 MG TAB PO PRN (19:51)
[2019-08-23] MEDS: INSULIN GLARGINE 100 UNITS/ML SUB-Q SCH (22:02)
[2019-08-24] MEDS: HEPARIN 5,000 UNIT/1 ML VIAL SUB-Q SCH ×3 (05:41→22:30)
[2019-08-24] MEDS: GABAPENTIN 300 MG CAP PO SCH ×3 (05:41→22:29)
[2019-08-24] MEDS: FUROSEMIDE 40 MG TAB PO SCH ×2 (05:41→17:16)
[2019-08-24 06:07] LABS: BUN/Creatinine Ratio 26; Blood Urea Nitrogen 13 mg/dL (7-17); Calcium 8.6 mg/dL (8.4-10.2); Hemolysis Index 2
[2019-08-24 06:35] LABS: Basophils % (Auto) 0.4 % (0.0-1.8); Eosinophils # (Auto) 0.3 K/mm3 (0.0-0.4); Eosinophils % (Auto) 2.5 % (0.0-4.3); Hemoglobin 11.2 gm/dl (10.1-14.3); Lymphocytes # (Auto) 3.8 K/mm3 (1.2-5.4); Lymphocytes % (Auto) 29.7 % (13.4-35.0); Mean Corpuscular HGB Conc 32 % (30-34); Mean Corpuscular Volume 83 fl (79-97); Monocytes % (Auto) 7.5 % (0.0-7.3); Platelet Count 279 K/mm3 (140-440); Red Blood Count 4.24 M/mm3 (3.65-5.03); Red Cell Distribution Width 15.4 % (13.2-15.2)
[2019-08-24] MEDS: ARFORMOTEROL 15 MCG/2 ML NEBU IH SCH ×2 (07:52→22:14)
[2019-08-24] MEDS: IPRATROPIUM/ALBUTEROL SULFATE 3 ML AMPUL.NEB IH SCH ×3 (07:52→22:13)
[2019-08-24] MEDS: BUDESONIDE 0.5 MG/2 ML NEBU IH SCH ×2 (07:52→22:14)
--- NOTE | 2019-08-24 09:12 | Progress Note ---
Assessment and Plan Dilated Cardiomyopathy an echocardiogram this admission reveals 4 chamber dilated cardiomyopathy with a decrease LV systolic function, ejection fraction 25-30%. Plan for ischemic evaluation as an outpatient Continue fluid and sodium restriction continue goal-directed medical therapy for dilated cardiomyopathy Acute Hypoxic Respiratory failure chest x-ray reports left basilar opacity concerning for pneumonia AMS -resolved Leukocytosis COPD - management per primary Hypertension - maximize medical therapy as blood pressure allows Diabetes - management per primary Obesity - recommend weight loss PAD s/p left AKA - ASA and high intensity statin recommended Mild rise of troponin ECG is sinus rhythm, no acute ischemic changes secondary to dilated cardiomyopathy Subjective Date of service: 08/24/19 Interval history: No acute events. Resting comfortably. No chest pain or SOB. Objective Vital Signs Temp Pulse Pulse Pulse Pulse Pulse Resp 08/24/19 08:51 08/24/19 08:00 78 78 08/24/19 03:13 98.0 F 79 18 08/24/19 01:54 18 08/24/19 00:17 98.3 F 18 08/23/19 23:48 94 H 94 H 18 08/23/19 21:24 91 H 08/23/19 20:37 98.2 F 77 18 08/23/19 20:35 08/23/19 20:33 101 H 08/23/19 19:10 101.2 F H 91 H 20 08/23/19 13:18 08/23/19 13:13 100 H 08/23/19 12:14 99.1 F 90 20 08/23/19 11:00 Resp Resp BP Pulse Ox 08/24/19 08:51 92 08/24/19 08:00 18 18 08/24/19 03:13 103/39 90 08/24/19 01:54 08/24/19 00:17 87/36 08/23/19 23:48 98 08/23/19 21:24 115/54 08/23/19 20:37 86/39 91 08/23/19 20:35 91 08/23/19 20:33 20 08/23/19 19:10 115/54 90 08/23/19 13:18 95 08/23/19 13:13 18 95 08/23/19 12:14 99/47 91 08/23/19 11:00 98 - Physical Examination General: No Apparent Distress HEENT: Positive: PERRL Neck: Positive: trachea midline Neuro: Positive: Grossly Intact Extremities: Present: Other (left AKA). Absent: edema - Labs and Meds CBC 08/24/19 Range/Units 05:08 WBC 12.7 H (4.5-11.0) K/mm3 RBC 4.24 (3.65-5.03) M/mm3 Hgb 11.2 (10.1-14.3) gm/dl Hct 35.0 (30.3-42.9) % Plt Count 279 (140-440) K/mm3 Lymph # 3.8 (1.2-5.4) K/mm3 Stanley # 1.0 H (0.0-0.8) K/mm3 Eos # 0.3 (0.0-0.4) K/mm3 Baso # 0.0 (0.0-0.1) K/mm3 Comprehensive Metabolic Panel 08/24/19 Range/Units 05:08 Sodium 140 (137-145) mmol/L Potassium 3.2 L (3.6-5.0) mmol/L Chloride 98.7 (98-107) mmol/L Carbon Dioxide 28 (22-30) mmol/L BUN 13 (7-17) mg/dL Creatinine 0.5 L (0.7-1.2) mg/dL Glucose 290 H (65-100) mg/dL Calcium 8.6 (8.4-10.2) mg/dL
[2019-08-24] MEDS: LISINOPRIL 5 MG TAB PO SCH (10:14)
[2019-08-24] MEDS: SPIRONOLACTONE 25 MG TAB PO SCH (10:14)
[2019-08-24] MEDS: carvediloL 3.125 MG TAB PO SCH ×2 (10:14→22:30)
[2019-08-24] MEDS: cefTRIAXone/NS 2 GM/100 ML 2 GM/100 ML BAG IV SCH (10:14)
[2019-08-24] MEDS: DOCUSATE SODIUM 100 MG CAP PO SCH ×2 (10:14→22:29)
[2019-08-24] MEDS: FAMOTIDINE 20 MG TAB PO SCH ×2 (10:14→22:31)
[2019-08-24] MEDS: INSULIN LISPRO 100 UNIT/ML SUB-Q SCH ×4 (10:15→23:28)
--- NOTE | 2019-08-24 16:46 | Progress Note ---
Assessment and Plan Assessment and plan: Acute Respiratory failure. Etiology secondary to PNA and COPD. patient noncompliant with BiPAP. Currently on Oxygen at 2 l/min Acute CHF exac. ECHO reveals EF 25%. Outpatient ischemic evaluation once respiratory status is stable. LLL Pneumonia Chest x-ray reports left basilar opacity concerning for pneumonia. On Rocephin Left pleural effusion Repeat CXR in few days Sepsis. Etiology sec to pneumonia. Patient with worsening leukocytosis. Consulted ID. Toxic metabolic encephalopathy. Ressolving COPD. Cont bronchodilators Hypertension. Home BP meds Diabetes Mellitus II. 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 PT/OT History Interval history: Feels better Less shortness of breath Hospitalist Physical - Physical exam Narrative exam: Gen: Not in acute distress, lying in bed, morbidly obese HEENT: Normocephalic, atraumatic Neck: supple, no JVD Heart: S1 and S2 reg, no murmurs, rubs or gallop Lungs: Decreased breath sounds left base Abd: soft, non tender, non distended, normal bowel sounds Ext: Left AKA, no clubbing, no cyanosis Neuro: Awake, alert, oriented X 3, moves all ext - Constitutional Vitals: Temp Pulse Resp BP Pulse Ox 97.6 F 78 18 98/64 97 08/24/19 08:02 08/24/19 14:36 08/24/19 15:00 08/24/19 08:02 08/24/19 15:00 General appearance: Present: obese Results - Labs CBC & Chem 7: 08/25/19 09:03 08/25/19 09:03 Labs: Laboratory Last Values WBC 12.7 K/mm3 (4.5-11.0) H 08/24/19 05:08 RBC 4.24 M/mm3 (3.65-5.03) 08/24/19 05:08 Hgb 11.2 gm/dl (10.1-14.3) 08/24/19 05:08 Hct 35.0 % (30.3-42.9) 08/24/19 05:08 MCV 83 fl (79-97) 08/24/19 05:08 MCH 27 pg (28-32) L 08/24/19 05:08 MCHC 32 % (30-34) 08/24/19 05:08 RDW 15.4 % (13.2-15.2) H 08/24/19 05:08 Plt Count 279 K/mm3 (140-440) 08/24/19 05:08 Lymph % (Auto) 29.7 % (13.4-35.0) 08/24/19 05:08 [place] % (Auto) 7.5 % (0.0-7.3) H 08/24/19 05:08 Eos % (Auto) 2.5 % (0.0-4.3) 08/24/19 05:08 Baso % (Auto) 0.4 % (0.0-1.8) 08/24/19 05:08 Lymph # 3.8 K/mm3 (1.2-5.4) 08/24/19 05:08 [place] # 1.0 K/mm3 (0.0-0.8) H 08/24/19 05:08 Eos # 0.3 K/mm3 (0.0-0.4) 08/24/19 05:08 Baso # 0.0 K/mm3 (0.0-0.1) 08/24/19 05:08 Add Manual Diff Complete 08/18/19 09:18 Total Counted 100 08/18/19 09:18 Seg Neutrophils % 59.9 % (40.0-70.0) 08/24/19 05:08 Seg Neuts % (Manual) 67.0 % (40.0-70.0) 08/18/19 09:18 Band Neutrophils % 3.0 % 08/18/19 09:18 Lymphocytes % (Manual) 21.0 % (13.4-35.0) 08/18/19 09:18 Reactive Lymphs % (Man) 0 % 08/18/19 09:18 Monocytes % (Manual) 9.0 % (0.0-7.3) H 08/18/19 09:18 Eosinophils % (Manual) 0 % (0.0-4.3) 08/18/19 09:18 Basophils % (Manual) 0 % (0.0-1.8) 08/18/19 09:18 Metamyelocytes % 0 % 08/18/19 09:18 Myelocytes % 0 % 08/18/19 09:18 Promyelocytes % 0 % 08/18/19 09:18 Blast Cells % 0 % 08/18/19 09:18 Nucleated RBC % Not Reportable 08/18/19 09:18 Seg Neutrophils # 7.6 K/mm3 (1.8-7.7) 08/24/19 05:08 Seg Neutrophils # Man 23.9 K/mm3 (1.8-7.7) H 08/18/19 09:18 Band Neutrophils # 1.1 K/mm3 08/18/19 09:18 Lymphocytes # (Manual) 7.5 K/mm3 (1.2-5.4) H 08/18/19 09:18 Abs React Lymphs (Man) 0.0 K/mm3 08/18/19 09:18 Monocytes # (Manual) 3.2 K/mm3 (0.0-0.8) H 08/18/19 09:18 Eosinophils # (Manual) 0.0 K/mm3 (0.0-0.4) 08/18/19 09:18 Basophils # (Manual) 0.0 K/mm3 (0.0-0.1) 08/18/19 09:18 Metamyelocytes # 0.0 K/mm3 08/18/19 09:18 Myelocytes # 0.0 K/mm3 08/18/19 09:18 Promyelocytes # 0.0 K/mm3 08/18/19 09:18 Blast Cells # 0.0 K/mm3 08/18/19 09:18 WBC Morphology Not Reportable 08/18/19 09:18 Hypersegmented Neuts Not Reportable 08/18/19 09:18 Hyposegmented Neuts Not Reportable 08/18/19 09:18 Hypogranular Neuts Not Reportable 08/18/19 09:18 Smudge Cells Not Reportable 08/18/19 09:18 Toxic Granulation Not Reportable 08/18/19 09:18 Toxic Vacuolation Not Reportable 08/18/19 09:18 Dohle Bodies Not Reportable 08/18/19 09:18 Pelger-Huet Anomaly Not Reportable 08/18/19 09:18 Farida Rods Not Reportable 08/18/19 09:18 Platelet Estimate Not Reportable 08/18/19 09:18 Clumped Platelets Not Reportable 08/18/19 09:18 Plt Clumps, EDTA Not Reportable 08/18/19 09:18 Large Platelets Not Reportable 08/18/19 09:18 Giant Platelets Not Reportable 08/18/19 09:18 Platelet Satelliting Not Reportable 08/18/19 09:18 Plt Morphology Comment Not Reportable 08/18/19 09:18 RBC Morphology Not Reportable 08/18/19 09:18 Dimorphic RBCs Not Reportable 08/18/19 09:18 Polychromasia Few 08/18/19 09:18 Hypochromasia Not Reportable 08/18/19 09:18 Poikilocytosis Not Reportable 08/18/19 09:18 Anisocytosis 1+ 08/18/19 09:18 Microcytosis Not Reportable 08/18/19 09:18 Macrocytosis Not Reportable 08/18/19 09:18 Spherocytes Not Reportable 08/18/19 09:18 Pappenheimer Bodies Not Reportable 08/18/19 09:18 Sickle Cells Not Reportable 08/18/19 09:18 Target Cells Not Reportable 08/18/19 09:18 Tear Drop Cells Not Reportable 08/18/19 09:18 Ovalocytes Not Reportable 08/18/19 09:18 Helmet Cells Not Reportable 08/18/19 09:18 [place] Bodies Not Reportable 08/18/19 09:18 [place] Rings Not Reportable 08/18/19 09:18 [place] Cells Not Reportable 08/18/19 09:18 Bite Cells Not Reportable 08/18/19 09:18 Crenated Cell Not Reportable 08/18/19 09:18 Elliptocytes Not Reportable 08/18/19 09:18 Acanthocytes (Spur) Not Reportable 08/18/19 09:18 Rouleaux Not Reportable 08/18/19 09:18 Hemoglobin C Crystals Not Reportable 08/18/19 09:18 Schistocytes Not Reportable 08/18/19 09:18 Malaria parasites Not Reportable 08/18/19 09:18 [place] Bodies Not Reportable 08/18/19 09:18 Hem Pathologist Commnt No 08/18/19 09:18 PT 14.2 Sec. (12.2-14.9) 08/18/19 21:03 INR 1.11 (0.87-1.13) 08/18/19 21:03 APTT 26.4 Sec. (24.2-36.6) 08/18/19 21:03 Heparin Anti-Xa Level < 0.10 U.I./ml (0.3-0.7) L 08/21/19 13:21 POC ABG pH 7.381 (7.35-7.45) 08/18/19 10:51 POC ABG pCO2 37.2 (35-45) 08/18/19 10:51 POC ABG pO2 59 (80-105) L 08/18/19 10:51 POC ABG HCO3 22.1 (22-26 mml/L) 08/18/19 10:51 POC ABG Total CO2 23 (23-27mmol/L) 08/18/19 10:51 POC ABG O2 Sat 90 08/18/19 10:51 POC ABG Base Excess -3 ((-2) - (+3)mmol/L) 08/18/19 10:51 VBG pH 7.348 (7.320-7.420) 08/18/19 10:12 FiO2 21 % 08/18/19 10:51 Sodium 140 mmol/L (137-145) 08/24/19 05:08 Potassium 3.2 mmol/L (3.6-5.0) L 08/24/19 05:08 Chloride 98.7 mmol/L (98-107) 08/24/19 05:08 Carbon Dioxide 28 mmol/L (22-30) 08/24/19 05:08 Anion Gap 17 mmol/L 08/24/19 05:08 BUN 13 mg/dL (7-17) 08/24/19 05:08 Creatinine 0.5 mg/dL (0.7-1.2) L 08/24/19 05:08 Estimated GFR > 60 ml/min 08/24/19 05:08 BUN/Creatinine Ratio 26 % 08/24/19 05:08 Glucose 290 mg/dL (65-100) H 08/24/19 05:08 POC Glucose 362 (70-105) H 08/24/19 12:31 Lactic Acid 1.60 mmol/L (0.7-2.0) 08/19/19 07:55 Calcium 8.6 mg/dL (8.4-10.2) 08/24/19 05:08 Magnesium 2.40 mg/dL (1.7-2.3) H 08/18/19 21:03 Troponin T 0.615 ng/mL (0.00-0.029) H* D 08/18/19 14:59 NT-Pro-B Natriuret Pep 2047 pg/mL (0-900) H 08/18/19 09:18 Triglycerides 170 mg/dL (2-149) H 08/18/19 09:18 Cholesterol 155 mg/dL (50-199) 08/18/19 09:18 LDL Cholesterol Direct 99 mg/dL (50-130) 08/18/19 09:18 HDL Cholesterol 45 mg/dL (40-59) 08/18/19 09:18 Cholesterol/HDL Ratio 3.44 % 08/18/19 09:18 TSH 0.719 mlU/mL (0.270-4.200) 08/18/19 21:03 Free T4 1.19 ng/dL (0.76-1.46) 08/18/19 21:03 Urine Color Yellow (Yellow) 08/18/19 18:24 Urine Turbidity Clear (Clear) 08/18/19 18:24 Urine pH 6.0 (5.0-7.0) 08/18/19 18:24 Ur Specific [place] 1.017 (1.003-1.030) 08/18/19 18:24 Urine Protein <15 mg/dl mg/dL (Negative) 08/18/19 18:24 Urine Glucose (UA) >=500 mg/dL (Negative) 08/18/19 18:24 Urine Ketones Tr mg/dL (Negative) 08/18/19 18:24 Urine Blood Neg (Negative) 08/18/19 18:24 Urine Nitrite Neg (Negative) 08/18/19 18:24 Urine Bilirubin Neg (Negative) 08/18/19 18:24 Urine Urobilinogen < 2.0 mg/dL (<2.0) 08/18/19 18:24 Ur Leukocyte Esterase Neg (Negative) 08/18/19 18:24 Urine WBC (Auto) 2.0 /HPF (0.0-6.0) 08/18/19 18:24 Urine RBC (Auto) 1.0 /HPF (0.0-6.0) 08/18/19 18:24 U Epithel Cells (Auto) 1.0 /HPF (0-13.0) 08/18/19 18:24 Urine Bacteria (Auto) 3+ /HPF (Negative) 08/18/19 18:24 Urine Mucus Few /HPF 08/18/19 18:24 Active Medications - Current Medications Current Medications: Generic Name Dose Route Start Last Admin Trade Name Freq PRN Reason Stop Dose Admin Acetaminophen 650 mg 08/18/19 10:54 08/23/19 19:51 Tylenol PO 650 mg Q4H PRN Administration Pain MILD(1-3)/Fever >100.5/RAMIREZ Acetaminophen/Hydrocodone Bitart 1 each 08/18/19 10:57 08/24/19 01:54 [place] 7.5/325 PO 1 each Q6H PRN Administration Pain, Moderate (4-6) Albuterol 2.5 mg 08/18/19 10:54 08/22/19 02:43 Proventil IH 2.5 mg Q4HRT PRN Administration Shortness Of Breath Albuterol/Ipratropium 1 ampul 08/19/19 20:00 08/24/19 14:35 Duoneb *Not For Prn Use* IH 1 ampul TIDRT HAMZAH Administration Alprazolam 0.25 mg 08/19/19 11:39 08/23/19 19:51 Xanax PO 0.25 mg Q8H PRN Administration Anxiety Arformoterol Tartrate 15 mcg 08/19/19 20:00 08/24/19 07:52 Brovana Nebu IH 15 mcg Q12HRT HAMZAH Administration Budesonide 0.5 mg 08/19/19 20:00 08/24/19 07:52 Pulmicort IH 0.5 mg Q12HRT HAMZAH Administration Carvedilol 3.125 mg 08/21/19 22:00 08/24/19 10:14 Coreg PO 3.125 mg BID HAMZAH Administration Dextrose 50 ml 08/18/19 16:09 D50w (25gm) Syringe IV Q30MIN PRN Hypoglycemia Protocol Docusate Sodium 100 mg 08/18/19 22:00 08/24/19 10:14 Colace PO 100 mg BID HAMZAH Administration Famotidine 20 mg 08/18/19 22:00 08/24/19 10:14 Pepcid PO 20 mg BID HAMZAH Administration Furosemide 40 mg 08/21/19 18:00 08/24/19 05:41 Lasix PO 40 mg 0600,1800 HAMZAH Administration Gabapentin 300 mg 08/18/19 14:00 08/24/19 14:37 Gabapentin PO 300 mg Q8HR HAMZAH Administration Heparin Sodium (Porcine) 5,000 unit 08/21/19 22:00 08/24/19 14:37 Heparin SUB-Q 5,000 unit Q8HR HAMZAH Administration Sodium Chloride 1,000 mls @ 62 mls/hr 08/18/19 17:00 08/22/19 00:59 Nacl 0.9% 1000 Ml IV 62 mls/hr DIRECT HAMZAH Administration Ceftriaxone Sodium 2 gm in 100 mls @ 200 mls/hr 08/23/19 16:00 08/24/19 10:14 Rocephin/Ns 2 Gm/100 Ml IV 200 mls/hr Q24HR HAMZAH Administration Protocol Insulin Glargine 10 units 08/21/19 22:00 08/23/19 22:02 Lantus SUB-Q 10 units QHS HAMZAH Administration Insulin Human Lispro 0 unit 08/19/19 07:30 08/24/19 12:31 Humalog SUB-Q 8 unit ACHS HAMZAH Administration Protocol Lisinopril 5 mg 08/22/19 10:00 08/24/19 10:14 Zestril PO 5 mg QDAY HAMZAH Administration Meclizine HCl 25 mg 08/18/19 10:57 08/23/19 21:24 Antivert PO 25 mg TID PRN Administration Vertigo Ondansetron HCl 4 mg 08/18/19 10:54 Zofran IV Q8H PRN Nausea And Vomiting Senna 8.6 mg 08/18/19 10:57 Senokot PO Q12H PRN Laxative Effect Sodium Chloride 10 ml 08/18/19 22:00 08/24/19 10:15 Sodium Chloride Flush Syringe 10 Ml IV 10 ml BID HAMZAH Administration Sodium Chloride 10 ml 08/18/19 10:54 Sodium Chloride Flush Syringe 10 Ml IV PRN PRN LINE FLUSH Spironolactone 12.5 mg 08/22/19 10:00 08/24/19 10:14 Aldactone PO 12.5 mg QDAY HAMZAH Administration Nutrition/Malnutrition Assess - Dietary Evaluation Nutrition/Malnutrition Findings: Nutrition Notes Start: 08/23/19 12:27 Freq: Status: Active Protocol: Document 08/23/19 12:27 CT (Rec: 08/23/19 12:37 CT [id number]) Co-Sign 08/23/19 12:27 LP Nutrition Notes Need for Assessment generated from: LOS,Education Initial or Follow up Assessment Current Diagnosis COPD,Diabetes,Sepsis, Hypertension,Heart Failure, Respiratory Failure Other Pertinent Diagnosis Pneu, NSTEMI, Nicotine dependence, AKA Current Diet Cardiac/consistent CHO Labs/Tests K 3.2 Glu 187 Pertinent Medications Lasix Humalog Lantus Height 5 ft 5 in Weight 116.8 kg Usual Body Weight 113.398 kg [place] Body Weight (kg) 56.81 BMI 42.8 Intake Prior to Admission Good Weight Status Morbidly Obese Subjective/Other Information LOS screen. Pt states eating well [employer] and consumed most of her breakfast. Pt states she ate 2 full meals the previous day. Pt stated that she did not want Glucerna, but asked questions on a diabetic diet. Diabetes nutrition education was given. Percent of energy/protein needs met: 98% energy / 100% protein Burn Absent Trauma Absent GI Symptoms None Food Allergy No Current % PO Good (75-100%) Minimum of two criteria No physical signs of malnutrition #1 Nutrition Diagnosis Food and nutrition-related knowledge deficit Etiology no previous knowledge of diabetic diet As Evidenced by Signs and Symptoms pt acceptance of diet education and handout Is patient on ventilator? No Is Patient Ambulatory and/or Out of Bed Yes REE-([facility]-ambulatory/OOB) [ 2299.544 [id number]] Kcal/Kg value to use for calculation 15 Approximate Energy Requirements Using 1752 kcal/Kg Calculation Used for Recommendations Kcal/kg Additional Notes Protein needs: 69-87 g/kg/day (0.8-1 g/kg/day AdBW 86.8 kg) Fluid needs: 1 ml/kcal/day Nutrition Intervention Change Diet Order: Continue cardaic/consitent CHO Teaching Recipient Patient Learning Readiness Good Teaching Methods Discussion,Handout Response to Teaching Verbalize understanding Education Handouts Provided Diabetes Type 2 Nutrition Education Barriers to Learning No Barriers RD phone number provided Yes Patient aware of follow up options Yes Anticipated Discharge Needs: cardiac/consistent CHO Revisit per MD consult or patient Sign Off request:
--- NOTE | 2019-08-24 18:31 | Consultation ---
History of Present Illness Consult date: 08/24/19 Reason for consult: cough, COPD, pneumonia History of present illness: PULMONARY AND CRITICAL CARE CONSULTATION DR. LOZANO THANK YOU FOR ASKING US TO PARTICIPATE IN THE CARE OF THIS PATIENT. 54 YO Female with Obesity Hypoventilation Syndrome, HTN, DM, Schizophrenia, Nicotine Dependence, COPD, DVT/PE on Therapeutic Anticoagulation with Eliquis presents to ED for evaluation. Pt states that she has experienced difficulty breathing over the past 1 day with progressively worsening symptoms over the same time frame. Pt acknowledges increased productive cough with yellow sputum, dypsnea on exertion, dypsnea at rest. EMS notified, and upon arrival the patient was found to be in distress. Pt found to have pulse oximetry of 44% on Room Air. Pt placed on supplemental oxygen and transported to [facility]. Pt seen and evaluated in ED and found to have Acute Hypoxemic Respiratory Failure, Pneumonia co mplicated by Pleural Effusion, Sepsis, COPD, as well as NSTEMI. Pt admitted to Telemetry and initiated on Sepsis/Pneumonia Protocols. Pt denies fever, chills, CP, palpitations, syncope, BRBPR, Hemoptysis, Unilateral leg swelling, calf pain, prolonged travel, or recent ill contacts. Patient morbidly Obese and resting on 2 litres O2. O2 saturation 92%. Patient goes on BIPAP during night time. Patient also has history of sleep apnea. Patient has history of smoking 1 to 1 1/2 pack x 30 years. Denies alcohol or drug abuse. Worked for [employer]. Not , No children . Patient has AKA left leg. Patient lives with her mother. Patients chest xray reported extensive air space disease left lower lobe. Patient afebrile at this time. Patient has leukocytosis. Past History Past Medical History: COPD, diabetes, hypertension, other (Sleep apnea, Obesity hypoventilation.) Past Surgical History: Other (Left AKA, D&C) Social history: , smoking. denies: alcohol abuse, prescription drug abuse Family history: no significant family history (reviewed) Medications and Allergies Allergies Allergy/AdvReac Type Severity Reaction Status Date / Time No Known Allergies Allergy Verified 08/18/19 10:10 Home Medications Medication Instructions Recorded Confirmed Last Taken Type Docusate Sodium [Colace CAP] 100 mg PO BID #1 capsule 07/20/16 07/27/16 Unknown Rx Famotidine [Pepcid] 20 mg PO BID #60 tablet 07/20/16 07/28/16 07/23/16 Rx HYDROcodone/APAP 7.5-325 [[place] 1 each PO Q6H PRN #30 tablet 07/20/16 08/24/19 07/24/16 Rx 7.5-325 mg TAB] Lisinopril [Zestril TAB] 20 mg PO QDAY #30 tablet 07/20/16 08/18/19 07/28/16 Rx Sennosides Tab [Senokot] 8.6 mg PO Q12H PRN #1 tablet 07/20/16 08/24/19 Unknown Rx glyBURIDE [Diabeta] 10 mg PO BIDDIAB #60 tablet 07/20/16 08/24/19 07/27/16 Rx hydroCHLOROthiazide [HCTZ] 25 mg PO QDAY #30 tablet 07/20/16 08/18/19 07/27/16 Rx Clindamycin [Clindamycin CAP] 450 mg PO TID 07/27/16 07/27/16 Unknown History Rivaroxaban [Xarelto] 20 mg PO QDAY 07/27/16 08/18/19 07/26/16 History Meclizine [Antivert] 25 mg PO TID PRN #20 tablet 10/27/17 Unknown Rx Furosemide [Lasix TAB] 08/18/19 Unknown History Furosemide [Lasix TAB] 1 tab PO DAILY 08/18/19 08/18/19 Unknown History Gabapentin 1 cap PO BID 08/18/19 08/18/19 Unknown History Insulin Glargine,Hum.rec.anlog 40 units SUB-Q DAILY 08/18/19 08/18/19 Unknown History [Lantus Solostar] Nystatin Cream [Mycostatin Cream] 08/18/19 Unknown History Nystatin Cream [Mycostatin Cream] 1 dose BID 08/18/19 08/18/19 Unknown History Omeprazole 1 cap PO DAILY 08/18/19 08/18/19 Unknown History Pravastatin [Pravachol] 1 tab PO DAILY 08/18/19 08/18/19 Unknown History Rivaroxaban [Xarelto] 08/18/19 Unknown History hydrOXYzine HCL [Atarax] 1 tab PO Q8HR PRN 08/18/19 08/18/19 Unknown History Active Meds: Active Medications Acetaminophen (Tylenol) 650 mg PO Q4H PRN PRN Reason: Pain MILD(1-3)/Fever >100.5/RAIMREZ Last Admin: 08/23/19 19:51 Dose: 650 mg Documented by: Acetaminophen/Hydrocodone Bitart ([place] 7.5/325) 1 each PO Q6H PRN PRN Reason: Pain, Moderate (4-6) Last Admin: 08/24/19 01:54 Dose: 1 each Documented by: Albuterol (Proventil) 2.5 mg IH Q4HRT PRN PRN Reason: Shortness Of Breath Last Admin: 08/22/19 02:43 Dose: 2.5 mg Documented by: Albuterol/Ipratropium (Duoneb *Not For Prn Use*) 1 ampul IH TIDRT [facility] Last Admin: 08/24/19 14:35 Dose: 1 ampul Documented by: Alprazolam (Xanax) 0.25 mg PO Q8H PRN PRN Reason: Anxiety Last Admin: 08/23/19 19:51 Dose: 0.25 mg Documented by: Arformoterol Tartrate (Brovana Nebu) 15 mcg IH Q12HRT [facility] Last Admin: 08/24/19 07:52 Dose: 15 mcg Documented by: Budesonide (Pulmicort) 0.5 mg IH Q12HRT [facility] Last Admin: 08/24/19 07:52 Dose: 0.5 mg Documented by: Carvedilol (Coreg) 3.125 mg PO BID [facility] Last Admin: 08/24/19 10:14 Dose: 3.125 mg Documented by: Dextrose (D50w (25gm) Syringe) 50 ml IV Q30MIN PRN; Protocol PRN Reason: Hypoglycemia Docusate Sodium (Colace) 100 mg PO BID [facility] Last Admin: 08/24/19 10:14 Dose: 100 mg Documented by: Famotidine (Pepcid) 20 mg PO BID [facility] Last Admin: 08/24/19 10:14 Dose: 20 mg Documented by: Furosemide (Lasix) 40 mg PO 0600,1800 [facility] Last Admin: 08/24/19 17:16 Dose: 40 mg Documented by: Gabapentin (Gabapentin) 300 mg PO Q8HR [facility] Last Admin: 08/24/19 14:37 Dose: 300 mg Documented by: Heparin Sodium (Porcine) (Heparin) 5,000 unit SUB-Q Q8HR [facility] Last Admin: 08/24/19 14:37 Dose: 5,000 unit Documented by: Sodium Chloride (Nacl 0.9% 1000 Ml) 1,000 mls @ 62 mls/hr IV DIRECT [facility] Last Admin: 08/22/19 00:59 Dose: 62 mls/hr Documented by: Ceftriaxone Sodium (Rocephin/Ns 2 Gm/100 Ml) 2 gm in 100 mls @ 200 mls/hr IV Q24HR [facility]; Protocol Last Admin: 08/24/19 10:14 Dose: 200 mls/hr Documented by: Insulin Glargine (Lantus) 10 units SUB-Q QHS [facility] Last Admin: 08/23/19 22:02 Dose: 10 units Documented by: Insulin Human Lispro (Humalog) 0 unit SUB-Q ACHS [facility]; Protocol Last Admin: 08/24/19 17:16 Dose: 4 unit Documented by: Lisinopril (Zestril) 5 mg PO QDAY [facility] Last Admin: 08/24/19 10:14 Dose: 5 mg Documented by: Meclizine HCl (Antivert) 25 mg PO TID PRN PRN Reason: Vertigo Last Admin: 08/23/19 21:24 Dose: 25 mg Documented by: Ondansetron HCl (Zofran) 4 mg IV Q8H PRN PRN Reason: Nausea And Vomiting Senna (Senokot) 8.6 mg PO Q12H PRN PRN Reason: Laxative Effect Sodium Chloride (Sodium Chloride Flush Syringe 10 Ml) 10 ml IV BID [facility] Last Admin: 08/24/19 10:15 Dose: 10 ml Documented by: Sodium Chloride (Sodium Chloride Flush Syringe 10 Ml) 10 ml IV PRN PRN PRN Reason: LINE FLUSH Spironolactone (Aldactone) 12.5 mg PO QDAY [facility] Last Admin: 08/24/19 10:14 Dose: 12.5 mg Documented by: Review of Systems All systems: negative Physical Examination Vital signs: Vital Signs Pulse Resp Pulse Ox 138 H 36 H 97 08/18/19 09:05 08/18/19 09:05 08/18/19 09:05 General appearance: no acute distress, alert Eyes: non-icteric ENT: oropharynx moist Neck: supple, no JVD Ascultation: Left: rhonchi, Bilateral: diminished breath sounds Cardiovascular: regular rate and rhythm Gastrointestinal: normoactive bowel sounds, soft, non-tender Integumentary: normal Extremities: no cyanosis, no edema Musculoskeletal: other (AKA left leg.) Gait: other (Patient has left AKA) normal mental status, non-focal exam, pupils equal and round mood appropriate Results - Laboratory Findings CBC and BMP: 08/24/19 05:08 08/24/19 05:08 ABG POC ABG pH 7.381 (7.35-7.45) 08/18/19 10:51 POC ABG pCO2 37.2 (35-45) 08/18/19 10:51 POC ABG pO2 59 (80-105) L 08/18/19 10:51 POC ABG HCO3 22.1 (22-26 mml/L) 08/18/19 10:51 POC ABG Total CO2 23 (23-27mmol/L) 08/18/19 10:51 POC ABG O2 Sat 90 08/18/19 10:51 PT/INR, D-dimer PT 14.2 Sec. (12.2-14.9) 08/18/19 21:03 INR 1.11 (0.87-1.13) 08/18/19 21:03 Abnormal lab findings: Abnormal Labs 08/18/19 08/18/19 08/18/19 09:18 09:18 10:12 WBC 35.6 H MCH 26 L RDW 15.8 H Plt Count 563 H Mineral % (Auto) Mineral # Seg Neutrophils % Monocytes % (Manual) 9.0 H Seg Neutrophils # Seg Neutrophils # Man 23.9 H Lymphocytes # (Manual) 7.5 H Monocytes # (Manual) 3.2 H APTT 21.9 L Heparin Anti-Xa Level POC ABG pO2 Potassium Chloride Carbon Dioxide 19 L BUN 20 H Creatinine Glucose 441 H POC Glucose Lactic Acid Calcium Magnesium Troponin T 0.275 H* NT-Pro-B Natriuret Pep 2047 H Triglycerides 170 H 08/18/19 08/18/19 08/18/19 10:12 10:51 11:09 WBC MCH RDW Plt Count Mineral % (Auto) Mineral # Seg Neutrophils % Monocytes % (Manual) Seg Neutrophils # Seg Neutrophils # Man Lymphocytes # (Manual) Monocytes # (Manual) APTT Heparin Anti-Xa Level POC ABG pO2 59 L Potassium Chloride Carbon Dioxide BUN Creatinine Glucose POC Glucose Lactic Acid 2.40 H* 2.70 H* Calcium Magnesium Troponin T NT-Pro-B Natriuret Pep Triglycerides 08/18/19 08/18/19 08/18/19 11:55 12:12 12:12 WBC MCH RDW Plt Count Mineral % (Auto) Mineral # Seg Neutrophils % Monocytes % (Manual) Seg Neutrophils # Seg Neutrophils # Man Lymphocytes # (Manual) Monocytes # (Manual) APTT Heparin Anti-Xa Level POC ABG pO2 Potassium Chloride Carbon Dioxide BUN Creatinine Glucose POC Glucose 393 H Lactic Acid 3.90 H* Calcium Magnesium Troponin T 0.355 H* D NT-Pro-B Natriuret Pep Triglycerides 08/18/19 08/18/19 08/18/19 13:36 14:59 14:59 WBC MCH RDW Plt Count Mineral % (Auto) Mineral # Seg Neutrophils % Monocytes % (Manual) Seg Neutrophils # Seg Neutrophils # Man Lymphocytes # (Manual) Monocytes # (Manual) APTT Heparin Anti-Xa Level POC ABG pO2 Potassium Chloride Carbon Dioxide BUN Creatinine Glucose POC Glucose 308 H Lactic Acid 2.60 H* Calcium Magnesium Troponin T 0.615 H* D NT-Pro-B Natriuret Pep Triglycerides 08/18/19 08/18/19 08/18/19 16:19 21:03 21:03 WBC MCH RDW Plt Count Mineral % (Auto) Mineral # Seg Neutrophils % Monocytes % (Manual) Seg Neutrophils # Seg Neutrophils # Man Lymphocytes # (Manual) Monocytes # (Manual) APTT Heparin Anti-Xa Level POC ABG pO2 Potassium Chloride Carbon Dioxide BUN Creatinine Glucose POC Glucose 336 H Lactic Acid 4.90 H* Calcium Magnesium 2.40 H Troponin T NT-Pro-B Natriuret Pep Triglycerides 08/18/19 08/19/19 08/19/19 23:08 00:09 03:53 WBC MCH RDW Plt Count Mineral % (Auto) Mineral # Seg Neutrophils % Monocytes % (Manual) Seg Neutrophils # Seg Neutrophils # Man Lymphocytes # (Manual) Monocytes # (Manual) APTT Heparin Anti-Xa Level POC ABG pO2 Potassium Chloride Carbon Dioxide BUN Creatinine Glucose POC Glucose 338 H Lactic Acid 2.10 H* 3.40 H* Calcium Magnesium Troponin T NT-Pro-B Natriuret Pep Triglycerides 1208/19/19 08/19/19 03:53 08:43 11:11 WBC MCH RDW Plt Count Mineral % (Auto) Mineral # Seg Neutrophils % Monocytes % (Manual) Seg Neutrophils # Seg Neutrophils # Man Lymphocytes # (Manual) Monocytes # (Manual) APTT Heparin Anti-Xa Level 0.26 L 0.16 L POC ABG pO2 Potassium Chloride Carbon Dioxide BUN Creatinine Glucose POC Glucose 264 H Lactic Acid Calcium Magnesium Troponin T NT-Pro-B Natriuret Pep Triglycerides 08/19/19 08/19/19 08/19/19 11:41 16:51 17:31 WBC MCH RDW Plt Count Mineral % (Auto) Mineral # Seg Neutrophils % Monocytes % (Manual) Seg Neutrophils # Seg Neutrophils # Man Lymphocytes # (Manual) Monocytes # (Manual) APTT Heparin Anti-Xa Level 0.24 L POC ABG pO2 Potassium Chloride Carbon Dioxide BUN Creatinine Glucose POC Glucose 313 H 323 H Lactic Acid Calcium Magnesium Troponin T NT-Pro-B Natriuret Pep Triglycerides 08/19/19 08/20/19 08/20/19 21:30 05:11 05:11 WBC 17.3 H MCH 27 L RDW 15.4 H Plt Count Mineral % (Auto) Mineral # 1.1 H Seg Neutrophils % Monocytes % (Manual) Seg Neutrophils # 11.7 H Seg Neutrophils # Man Lymphocytes # (Manual) Monocytes # (Manual) APTT Heparin Anti-Xa Level POC ABG pO2 Potassium Chloride 107.9 H Carbon Dioxide BUN Creatinine 0.4 L Glucose 148 H POC Glucose 411 H Lactic Acid Calcium 8.1 L Magnesium Troponin T NT-Pro-B Natriuret Pep Triglycerides 08/20/19 08/20/19 08/20/19 08:37 12:08 16:09 WBC MCH RDW Plt Count Mineral % (Auto) Mineral # Seg Neutrophils % Monocytes % (Manual) Seg Neutrophils # Seg Neutrophils # Man Lymphocytes # (Manual) Monocytes # (Manual) APTT Heparin Anti-Xa Level POC ABG pO2 Potassium Chloride Carbon Dioxide BUN Creatinine Glucose POC Glucose 191 H 312 H 229 H Lactic Acid Calcium Magnesium Troponin T NT-Pro-B Natriuret Pep Triglycerides 08/20/19 08/21/19 08/21/19 23:49 05:00 08:03 WBC MCH RDW Plt Count Mineral % (Auto) Mineral # Seg Neutrophils % Monocytes % (Manual) Seg Neutrophils # Seg Neutrophils # Man Lymphocytes # (Manual) Monocytes # (Manual) APTT Heparin Anti-Xa Level 0.16 L POC ABG pO2 Potassium Chloride Carbon Dioxide BUN Creatinine Glucose POC Glucose 316 H 231 H Lactic Acid Calcium Magnesium Troponin T NT-Pro-B Natriuret Pep Triglycerides 08/21/19 08/21/19 08/21/19 08:37 11:57 13:21 WBC 14.8 H MCH 26 L RDW 15.7 H Plt Count Mineral % (Auto) Mineral # Seg Neutrophils % Monocytes % (Manual) Seg Neutrophils # 9.5 H Seg Neutrophils # Man Lymphocytes # (Manual) Monocytes # (Manual) APTT Heparin Anti-Xa Level < 0.10 L POC ABG pO2 Potassium Chloride Carbon Dioxide BUN Creatinine Glucose POC Glucose 310 H Lactic Acid Calcium Magnesium Troponin T NT-Pro-B Natriuret Pep Triglycerides 08/21/19 08/21/19 08/22/19 16:32 22:24 04:46 WBC 14.5 H MCH 27 L RDW 15.3 H Plt Count Mineral % (Auto) Mineral # Seg Neutrophils % 71.8 H Monocytes % (Manual) Seg Neutrophils # 10.4 H Seg Neutrophils # Man Lymphocytes # (Manual) Monocytes # (Manual) APTT Heparin Anti-Xa Level POC ABG pO2 Potassium Chloride Carbon Dioxide BUN Creatinine Glucose POC Glucose 261 H 248 H Lactic Acid Calcium Magnesium Troponin T NT-Pro-B Natriuret Pep Triglycerides 08/22/19 08/22/19 08/22/19 04:46 08:18 11:37 WBC MCH RDW Plt Count Mineral % (Auto) Mineral # Seg Neutrophils % Monocytes % (Manual) Seg Neutrophils # Seg Neutrophils # Man Lymphocytes # (Manual) Monocytes # (Manual) APTT Heparin Anti-Xa Level POC ABG pO2 Potassium 3.1 L D Chloride Carbon Dioxide BUN 6 L Creatinine 0.4 L Glucose 153 H POC Glucose 155 H 234 H Lactic Acid Calcium 8.1 L Magnesium Troponin T NT-Pro-B Natriuret Pep Triglycerides 08/22/19 08/22/19 08/23/19 16:51 20:38 05:50 WBC 16.2 H MCH 26 L RDW 15.5 H Plt Count Mineral % (Auto) Mineral # 1.0 H Seg Neutrophils % 72.3 H Monocytes % (Manual) Seg Neutrophils # 11.7 H Seg Neutrophils # Man Lymphocytes # (Manual) Monocytes # (Manual) APTT Heparin Anti-Xa Level POC ABG pO2 Potassium Chloride Carbon Dioxide BUN Creatinine Glucose POC Glucose 294 H 373 H Lactic Acid Calcium Magnesium Troponin T NT-Pro-B Natriuret Pep Triglycerides 08/23/19 08/23/19 08/23/19 05:50 08:56 12:20 WBC MCH RDW Plt Count Mineral % (Auto) Mineral # Seg Neutrophils % Monocytes % (Manual) Seg Neutrophils # Seg Neutrophils # Man Lymphocytes # (Manual) Monocytes # (Manual) APTT Heparin Anti-Xa Level POC ABG pO2 Potassium 3.2 L Chloride Carbon Dioxide BUN Creatinine 0.4 L Glucose 187 H POC Glucose 240 H 262 H Lactic Acid Calcium Magnesium Troponin T NT-Pro-B Natriuret Pep Triglycerides 08/23/19 08/23/19 08/24/19 15:37 20:23 05:08 WBC 12.7 H MCH 27 L RDW 15.4 H Plt Count Mineral % (Auto) 7.5 H Mineral # 1.0 H Seg Neutrophils % Monocytes % (Manual) Seg Neutrophils # Seg Neutrophils # Man Lymphocytes # (Manual) Monocytes # (Manual) APTT Heparin Anti-Xa Level POC ABG pO2 Potassium Chloride Carbon Dioxide BUN Creatinine Glucose POC Glucose 407 H 276 H Lactic Acid Calcium Magnesium Troponin T NT-Pro-B Natriuret Pep Triglycerides 08/24/19 08/24/19 08/24/19 05:08 08:11 12:31 WBC MCH RDW Plt Count Mineral % (Auto) Mineral # Seg Neutrophils % Monocytes % (Manual) Seg Neutrophils # Seg Neutrophils # Man Lymphocytes # (Manual) Monocytes # (Manual) APTT Heparin Anti-Xa Level POC ABG pO2 Potassium 3.2 L Chloride Carbon Dioxide BUN Creatinine 0.5 L Glucose 290 H POC Glucose 214 H 362 H Lactic Acid Calcium Magnesium Troponin T NT-Pro-B Natriuret Pep Triglycerides 08/24/19 16:49 WBC MCH RDW Plt Count Mineral % (Auto) Mineral # Seg Neutrophils % Monocytes % (Manual) Seg Neutrophils # Seg Neutrophils # Man Lymphocytes # (Manual) Monocytes # (Manual) APTT Heparin Anti-Xa Level POC ABG pO2 Potassium Chloride Carbon Dioxide BUN Creatinine Glucose POC Glucose 269 H Lactic Acid Calcium Magnesium Troponin T NT-Pro-B Natriuret Pep Triglycerides - Diagnostic Findings Chest x-ray: report reviewed (Extensive left lower lobe air space disease.), image reviewed Assessment and Plan 54 YO Female with Obesity Hypoventilation Syndrome, HTN, DM, Schizophrenia, Nicotine Dependence, COPD, DVT/PE on Therapeutic Anticoagulation with Bjorn presents to ED for evaluation. Pt states that she has experienced difficulty breathing over the past 1 day with progressively worsening symptoms over the same time frame. Pt acknowledges increased productive cough with yellow sputum, dypsnea on exertion, dypsnea at rest. EMS notified, and upon arrival the patient was found to be in distress. Pt found to have pulse oximetry of 44% on Room Air. Pt placed on supplemental oxygen and transported to [facility]. Pt seen and evaluated in ED and found to have Acute Hypoxemic Respiratory Failure, Pneumonia complicated by Pleural Effusion, Sepsis, COPD, as well as NSTEMI. Pt admitted to Telemetry and initiated on Sepsis/Pneumonia Protocols. Pt denies fever, chills, CP, palpitations, syncope, BRBPR, Hemoptysis, Unilateral leg swelling, calf pain, prolonged travel, or recent ill contacts. Patient morbidly Obese and resting on 2 litres O2. O2 saturation 92%. Patient goes on BIPAP during night time. Patient also has history of sleep apnea. Patient has history of smoking 1 to 1 1/2 pack x 30 years. Denies alcohol or drug abuse. Worked for [employer]. Not , No children . Patient has AKA left leg. Patient lives with her mother. Patients chest xray reported extensive air space disease left lower lobe. Patient afebrile at this time. Patient has leukocytosis. - Patient Problems (1) Acute respiratory failure with hypoxemia Current Visit: Yes Status: Acute Plan to address problem: O2 2 litres via nasal canula. Albuterol/atrovent aerosol treatments q 6 hours prn for shortness of breath. Brovanna/Budesonide aerosol treatments q 12 hours. Continue ceftrioxone. Continue S/C Heparin. Continue Famotidine. (2) COPD (chronic obstructive pulmonary disease) Current Visit: Yes Status: Acute Qualifiers: Chronic bronchitis type: unspecified Plan to address problem: O2 2 litres via nasal canula. Albuterol/atrovent aerosol treatments q 6 hours prn for shortness of breath. Brovanna/Budesonide aerosol treatments q 12 hours. Continue ceftrioxone. Continue S/C Heparin. Continue Famotidine. PFTs as out patient. (3) HTN (hypertension) Current Visit: Yes Status: Acute Qualifiers: Hypertension type: essential hypertension Qualified Code(s): I10 - Essential (primary) hypertension Plan to address problem: Management as per primary care. (4) History of pulmonary embolism Current Visit: Yes Status: Acute Plan to address problem: Patient is on DVT prophylaxis with heparin (5) NSTEMI (non-ST elevated myocardial infarction) Current Visit: Yes Status: Acute Plan to address problem: Management as per cardiology. (6) Nicotine dependence with withdrawal Current Visit: Yes Status: Acute Qualifiers: Nicotine product type: cigarettes Qualified Code(s): F17.213 - Nicotine dependence, cigarettes, with withdrawal Plan to address problem: Counselled to stop smoking. (7) Pneumonia Current Visit: Yes Status: Acute Qualifiers: Laterality: left Plan to address problem: Patient is on ceftrioxone.
[2019-08-24] MEDS: INSULIN GLARGINE 100 UNITS/ML SUB-Q SCH (23:27)
[2019-08-25] MEDS: FUROSEMIDE 40 MG TAB PO SCH ×2 (06:20→17:06)
[2019-08-25] MEDS: GABAPENTIN 300 MG CAP PO SCH ×3 (06:22→21:12)
[2019-08-25] MEDS: HEPARIN 5,000 UNIT/1 ML VIAL SUB-Q SCH ×3 (06:27→21:14)
[2019-08-25] MEDS: BUDESONIDE 0.5 MG/2 ML NEBU IH SCH ×2 (08:40→22:57)
[2019-08-25] MEDS: ARFORMOTEROL 15 MCG/2 ML NEBU IH SCH ×2 (08:40→22:59)
[2019-08-25] MEDS: IPRATROPIUM/ALBUTEROL SULFATE 3 ML AMPUL.NEB IH SCH ×3 (08:40→22:56)
--- NOTE | 2019-08-25 08:58 | Progress Note ---
Assessment and Plan Dilated Cardiomyopathy an echocardiogram this admission reveals 4 chamber dilated cardiomyopathy with a decrease LV systolic function, ejection fraction 25-30%. Plan for ischemic evaluation as an outpatient Continue fluid and sodium restriction continue goal-directed medical therapy for dilated cardiomyopathy Acute Hypoxic Respiratory failure chest x-ray reports left basilar opacity concerning for pneumonia AMS -resolved Leukocytosis COPD - management per primary Hypertension - maximize medical therapy as blood pressure allows Diabetes - management per primary Obesity - recommend weight loss PAD s/p left AKA - ASA and high intensity statin recommended Mild rise of troponin ECG is sinus rhythm, no acute ischemic changes secondary to dilated cardiomyopathy Subjective Date of service: 08/25/19 Interval history: No acute events. Resting comfortably. No chest pain or SOB. Objective Vital Signs Temp Pulse Pulse Pulse Resp Resp Resp 08/25/19 08:42 08/25/19 08:40 88 87 18 16 08/25/19 06:11 83 18 08/25/19 04:15 98.0 F 81 20 08/25/19 03:35 85 08/25/19 01:39 99.5 F 84 18 08/24/19 22:30 83 08/24/19 22:26 18 08/24/19 22:14 85 88 18 16 08/24/19 22:00 99.4 F 88 20 08/24/19 16:34 98.8 F 51 L 18 08/24/19 15:00 18 08/24/19 14:36 78 18 08/24/19 13:41 98.1 F 35 L 18 BP BP Pulse Ox 08/25/19 08:42 95 08/25/19 08:40 08/25/19 06:11 94/43 91 08/25/19 04:15 96/39 95 08/25/19 03:35 08/25/19 01:39 93/46 94 08/24/19 22:30 79/38 08/24/19 22:26 79/38 08/24/19 22:14 08/24/19 22:00 112/49 90 08/24/19 16:34 94/47 91 08/24/19 15:00 97 08/24/19 14:36 08/24/19 13:41 87/41 94 - Physical Examination General: No Apparent Distress HEENT: Positive: PERRL Neck: Positive: trachea midline Neuro: Positive: Grossly Intact Extremities: Present: Other (left AKA). Absent: edema
[2019-08-25 09:50] LABS: BUN/Creatinine Ratio 20; Blood Urea Nitrogen 8 mg/dL (7-17); Calcium 8.5 mg/dL (8.4-10.2); Hemolysis Index 5
[2019-08-25] MEDS: DOCUSATE SODIUM 100 MG CAP PO SCH ×2 (09:55→21:12)
[2019-08-25] MEDS: SPIRONOLACTONE 25 MG TAB PO SCH (09:55)
[2019-08-25] MEDS: FAMOTIDINE 20 MG TAB PO SCH ×2 (09:55→21:12)
[2019-08-25] MEDS: cefTRIAXone/NS 2 GM/100 ML 2 GM/100 ML BAG IV SCH (09:56)
[2019-08-25] MEDS: carvediloL 3.125 MG TAB PO SCH ×2 (09:56→21:12)
[2019-08-25] MEDS: LISINOPRIL 5 MG TAB PO SCH (09:56)
[2019-08-25] MEDS: INSULIN LISPRO 100 UNIT/ML SUB-Q SCH ×4 (09:58→21:24)
[2019-08-25 10:15] LABS: Hematocrit 35.6 % (30.3-42.9); Hemoglobin 11.4 gm/dl (10.1-14.3); Mean Corpuscular HGB Conc 32 % (30-34); Mean Corpuscular Volume 82 fl (79-97); Platelet Count 266 K/mm3 (140-440); Red Blood Count 4.32 M/mm3 (3.65-5.03); Red Cell Distribution Width 15.3 % (13.2-15.2)
--- NOTE | 2019-08-25 17:29 | Progress Note ---
Assessment and Plan Assessment and plan: Acute Respiratory failure. Etiology secondary to PNA and COPD. patient noncompliant with BiPAP. Currently on Oxygen at 2 l/min Acute CHF exac. ECHO reveals EF 25%. Outpatient ischemic evaluation once respiratory status is stable. LLL Pneumonia Chest x-ray reports left basilar opacity concerning for pneumonia. On Rocephin Left pleural effusion Repeat CXR in few days Sepsis. Etiology sec to pneumonia. Patient with worsening leukocytosis. Consulted ID. Toxic metabolic encephalopathy. Ressolving COPD. Cont bronchodilators Hypertension. Home BP meds Diabetes Mellitus II. 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 PT/OT Likely dc home tomorrow. History Interval history: Feels better Less shortness of breath Hospitalist Physical - Physical exam Narrative exam: Gen: Not in acute distress, lying in bed, morbidly obese HEENT: Normocephalic, atraumatic Neck: supple, no JVD Heart: S1 and S2 reg, no murmurs, rubs or gallop Lungs: Decreased breath sounds left base Abd: soft, non tender, non distended, normal bowel sounds Ext: Left AKA, no clubbing, no cyanosis Neuro: Awake, alert, oriented X 3, moves all ext - Constitutional Vitals: Temp Pulse Resp BP Pulse Ox 98.1 F 58 L 16 103/54 86 08/25/19 12:53 08/25/19 17:06 08/25/19 13:52 08/25/19 17:06 08/25/19 17:06 General appearance: Present: obese Results - Labs CBC & Chem 7: 08/26/19 07:04 08/26/19 07:04 Labs: Laboratory Last Values WBC 15.6 K/mm3 (4.5-11.0) H 08/25/19 09:03 RBC 4.32 M/mm3 (3.65-5.03) 08/25/19 09:03 Hgb 11.4 gm/dl (10.1-14.3) 08/25/19 09:03 Hct 35.6 % (30.3-42.9) 08/25/19 09:03 MCV 82 fl (79-97) 08/25/19 09:03 MCH 27 pg (28-32) L 08/25/19 09:03 MCHC 32 % (30-34) 08/25/19 09:03 RDW 15.3 % (13.2-15.2) H 08/25/19 09:03 Plt Count 266 K/mm3 (140-440) 08/25/19 09:03 Lymph % (Auto) 29.7 % (13.4-35.0) 08/24/19 05:08 [place] % (Auto) 7.5 % (0.0-7.3) H 08/24/19 05:08 Eos % (Auto) 2.5 % (0.0-4.3) 08/24/19 05:08 Baso % (Auto) 0.4 % (0.0-1.8) 08/24/19 05:08 Lymph # 3.8 K/mm3 (1.2-5.4) 08/24/19 05:08 [place] # 1.0 K/mm3 (0.0-0.8) H 08/24/19 05:08 Eos # 0.3 K/mm3 (0.0-0.4) 08/24/19 05:08 Baso # 0.0 K/mm3 (0.0-0.1) 08/24/19 05:08 Add Manual Diff Complete 08/18/19 09:18 Total Counted 100 08/18/19 09:18 Seg Neutrophils % 59.9 % (40.0-70.0) 08/24/19 05:08 Seg Neuts % (Manual) 67.0 % (40.0-70.0) 08/18/19 09:18 Band Neutrophils % 3.0 % 08/18/19 09:18 Lymphocytes % (Manual) 21.0 % (13.4-35.0) 08/18/19 09:18 Reactive Lymphs % (Man) 0 % 08/18/19 09:18 Monocytes % (Manual) 9.0 % (0.0-7.3) H 08/18/19 09:18 Eosinophils % (Manual) 0 % (0.0-4.3) 08/18/19 09:18 Basophils % (Manual) 0 % (0.0-1.8) 08/18/19 09:18 Metamyelocytes % 0 % 08/18/19 09:18 Myelocytes % 0 % 08/18/19 09:18 Promyelocytes % 0 % 08/18/19 09:18 Blast Cells % 0 % 08/18/19 09:18 Nucleated RBC % Not Reportable 08/18/19 09:18 Seg Neutrophils # 7.6 K/mm3 (1.8-7.7) 08/24/19 05:08 Seg Neutrophils # Man 23.9 K/mm3 (1.8-7.7) H 08/18/19 09:18 Band Neutrophils # 1.1 K/mm3 08/18/19 09:18 Lymphocytes # (Manual) 7.5 K/mm3 (1.2-5.4) H 08/18/19 09:18 Abs React Lymphs (Man) 0.0 K/mm3 08/18/19 09:18 Monocytes # (Manual) 3.2 K/mm3 (0.0-0.8) H 08/18/19 09:18 Eosinophils # (Manual) 0.0 K/mm3 (0.0-0.4) 08/18/19 09:18 Basophils # (Manual) 0.0 K/mm3 (0.0-0.1) 08/18/19 09:18 Metamyelocytes # 0.0 K/mm3 08/18/19 09:18 Myelocytes # 0.0 K/mm3 08/18/19 09:18 Promyelocytes # 0.0 K/mm3 08/18/19 09:18 Blast Cells # 0.0 K/mm3 08/18/19 09:18 WBC Morphology Not Reportable 08/18/19 09:18 Hypersegmented Neuts Not Reportable 08/18/19 09:18 Hyposegmented Neuts Not Reportable 08/18/19 09:18 Hypogranular Neuts Not Reportable 08/18/19 09:18 Smudge Cells Not Reportable 08/18/19 09:18 Toxic Granulation Not Reportable 08/18/19 09:18 Toxic Vacuolation Not Reportable 08/18/19 09:18 Dohle Bodies Not Reportable 08/18/19 09:18 Pelger-Huet Anomaly Not Reportable 08/18/19 09:18 Farida Rods Not Reportable 08/18/19 09:18 Platelet Estimate Not Reportable 08/18/19 09:18 Clumped Platelets Not Reportable 08/18/19 09:18 Plt Clumps, EDTA Not Reportable 08/18/19 09:18 Large Platelets Not Reportable 08/18/19 09:18 Giant Platelets Not Reportable 08/18/19 09:18 Platelet Satelliting Not Reportable 08/18/19 09:18 Plt Morphology Comment Not Reportable 08/18/19 09:18 RBC Morphology Not Reportable 08/18/19 09:18 Dimorphic RBCs Not Reportable 08/18/19 09:18 Polychromasia Few 08/18/19 09:18 Hypochromasia Not Reportable 08/18/19 09:18 Poikilocytosis Not Reportable 08/18/19 09:18 Anisocytosis 1+ 08/18/19 09:18 Microcytosis Not Reportable 08/18/19 09:18 Macrocytosis Not Reportable 08/18/19 09:18 Spherocytes Not Reportable 08/18/19 09:18 Pappenheimer Bodies Not Reportable 08/18/19 09:18 Sickle Cells Not Reportable 08/18/19 09:18 Target Cells Not Reportable 08/18/19 09:18 Tear Drop Cells Not Reportable 08/18/19 09:18 Ovalocytes Not Reportable 08/18/19 09:18 Helmet Cells Not Reportable 08/18/19 09:18 [place]al[place]-Marcelline Bodies Not Reportable 08/18/19 09:18 [place] Rings Not Reportable 08/18/19 09:18 Saeed Cells Not Reportable 08/18/19 09:18 Bite Cells Not Reportable 08/18/19 09:18 Crenated Cell Not Reportable 08/18/19 09:18 Elliptocytes Not Reportable 08/18/19 09:18 Acanthocytes (Spur) Not Reportable 08/18/19 09:18 Rouleaux Not Reportable 08/18/19 09:18 Hemoglobin C Crystals Not Reportable 08/18/19 09:18 Schistocytes Not Reportable 08/18/19 09:18 Malaria parasites Not Reportable 08/18/19 09:18 [place] Bodies Not Reportable 08/18/19 09:18 Hem Pathologist Commnt No 08/18/19 09:18 PT 14.2 Sec. (12.2-14.9) 08/18/19 21:03 INR 1.11 (0.87-1.13) 08/18/19 21:03 APTT 26.4 Sec. (24.2-36.6) 08/18/19 21:03 Heparin Anti-Xa Level < 0.10 U.I./ml (0.3-0.7) L 08/21/19 13:21 POC ABG pH 7.381 (7.35-7.45) 08/18/19 10:51 POC ABG pCO2 37.2 (35-45) 08/18/19 10:51 POC ABG pO2 59 (80-105) L 08/18/19 10:51 POC ABG HCO3 22.1 (22-26 mml/L) 08/18/19 10:51 POC ABG Total CO2 23 (23-27mmol/L) 08/18/19 10:51 POC ABG O2 Sat 90 08/18/19 10:51 POC ABG Base Excess -3 ((-2) - (+3)mmol/L) 08/18/19 10:51 VBG pH 7.348 (7.320-7.420) 08/18/19 10:12 FiO2 21 % 08/18/19 10:51 Sodium 139 mmol/L (137-145) 08/25/19 09:03 Potassium 3.4 mmol/L (3.6-5.0) L 08/25/19 09:03 Chloride 97.1 mmol/L (98-107) L 08/25/19 09:03 Carbon Dioxide 24 mmol/L (22-30) 08/25/19 09:03 Anion Gap 21 mmol/L 08/25/19 09:03 BUN 8 mg/dL (7-17) 08/25/19 09:03 Creatinine 0.4 mg/dL (0.7-1.2) L 08/25/19 09:03 Estimated GFR > 60 ml/min 08/25/19 09:03 BUN/Creatinine Ratio 20 % 08/25/19 09:03 Glucose 260 mg/dL (65-100) H 08/25/19 09:03 POC Glucose 253 (70-105) H 08/25/19 16:06 Lactic Acid 1.60 mmol/L (0.7-2.0) 08/19/19 07:55 Calcium 8.5 mg/dL (8.4-10.2) 08/25/19 09:03 Magnesium 2.40 mg/dL (1.7-2.3) H 08/18/19 21:03 Troponin T 0.615 ng/mL (0.00-0.029) H* D 08/18/19 14:59 NT-Pro-B Natriuret Pep 2047 pg/mL (0-900) H 08/18/19 09:18 Triglycerides 170 mg/dL (2-149) H 08/18/19 09:18 Cholesterol 155 mg/dL (50-199) 08/18/19 09:18 LDL Cholesterol Direct 99 mg/dL (50-130) 08/18/19 09:18 HDL Cholesterol 45 mg/dL (40-59) 08/18/19 09:18 Cholesterol/HDL Ratio 3.44 % 08/18/19 09:18 TSH 0.719 mlU/mL (0.270-4.200) 08/18/19 21:03 Free T4 1.19 ng/dL (0.76-1.46) 08/18/19 21:03 Urine Color Yellow (Yellow) 08/18/19 18:24 Urine Turbidity Clear (Clear) 08/18/19 18:24 Urine pH 6.0 (5.0-7.0) 08/18/19 18:24 Ur Specific [place] 1.017 (1.003-1.030) 08/18/19 18:24 Urine Protein <15 mg/dl mg/dL (Negative) 08/18/19 18:24 Urine Glucose (UA) >=500 mg/dL (Negative) 08/18/19 18:24 Urine Ketones Tr mg/dL (Negative) 08/18/19 18:24 Urine Blood Neg (Negative) 08/18/19 18:24 Urine Nitrite Neg (Negative) 08/18/19 18:24 Urine Bilirubin Neg (Negative) 08/18/19 18:24 Urine Urobilinogen < 2.0 mg/dL (<2.0) 08/18/19 18:24 Ur Leukocyte Esterase Neg (Negative) 08/18/19 18:24 Urine WBC (Auto) 2.0 /HPF (0.0-6.0) 08/18/19 18:24 Urine RBC (Auto) 1.0 /HPF (0.0-6.0) 08/18/19 18:24 U Epithel Cells (Auto) 1.0 /HPF (0-13.0) 08/18/19 18:24 Urine Bacteria (Auto) 3+ /HPF (Negative) 08/18/19 18:24 Urine Mucus Few /HPF 08/18/19 18:24 Active Medications - Current Medications Current Medications: Generic Name Dose Route Start Last Admin Trade Name Freq PRN Reason Stop Dose Admin Acetaminophen 650 mg 08/18/19 10:54 08/23/19 19:51 Tylenol PO 650 mg Q4H PRN Administration Pain MILD(1-3)/Fever >100.5/RAMIREZ Acetaminophen/Hydrocodone Bitart 1 each 08/18/19 10:57 08/24/19 01:54 [place] 7.5/325 PO 1 each Q6H PRN Administration Pain, Moderate (4-6) Albuterol 2.5 mg 08/18/19 10:54 08/22/19 02:43 Proventil IH 2.5 mg Q4HRT PRN Administration Shortness Of Breath Albuterol/Ipratropium 1 ampul 08/19/19 20:00 08/25/19 13:50 Duoneb *Not For Prn Use* IH 1 ampul TIDRT HAMZAH Administration Alprazolam 0.25 mg 08/19/19 11:39 08/23/19 19:51 Xanax PO 0.25 mg Q8H PRN Administration Anxiety Arformoterol Tartrate 15 mcg 08/19/19 20:00 08/25/19 08:40 Brovana Nebu IH 15 mcg Q12HRT HAMZAH Administration Budesonide 0.5 mg 08/19/19 20:00 08/25/19 08:40 Pulmicort IH 0.5 mg Q12HRT HAMZAH Administration Carvedilol 3.125 mg 08/21/19 22:00 08/25/19 09:56 Coreg PO Not Given BID HAMZAH Dextrose 50 ml 08/18/19 16:09 D50w (25gm) Syringe IV Q30MIN PRN Hypoglycemia Protocol Docusate Sodium 100 mg 08/18/19 22:00 08/25/19 09:55 Colace PO 100 mg BID HAMZAH Administration Famotidine 20 mg 08/18/19 22:00 08/25/19 09:55 Pepcid PO 20 mg BID HAMZAH Administration Furosemide 40 mg 08/21/19 18:00 08/25/19 17:06 Lasix PO 40 mg 0600,1800 HAMZAH Administration Gabapentin 300 mg 08/18/19 14:00 08/25/19 14:07 Gabapentin PO 300 mg Q8HR HAMZAH Administration Heparin Sodium (Porcine) 5,000 unit 08/21/19 22:00 08/25/19 14:12 Heparin SUB-Q 5,000 unit Q8HR HAMZAH Administration Sodium Chloride 1,000 mls @ 62 mls/hr 08/18/19 17:00 08/22/19 00:59 Nacl 0.9% 1000 Ml IV 62 mls/hr DIRECT HAMZAH Administration Ceftriaxone Sodium 2 gm in 100 mls @ 200 mls/hr 08/23/19 16:00 08/25/19 09:56 Rocephin/Ns 2 Gm/100 Ml IV 200 mls/hr Q24HR HAMZAH Administration Protocol Insulin Glargine 20 units 08/25/19 22:00 Lantus SUB-Q QHS HAMZAH Insulin Human Lispro 0 unit 08/19/19 07:30 08/25/19 17:06 Humalog SUB-Q 4 unit ACHS [facility] Administration Protocol Lisinopril 5 mg 08/22/19 10:00 08/25/19 09:56 Zestril PO Not Given QDAY [facility] Meclizine HCl 25 mg 08/18/19 10:57 08/23/19 21:24 Antivert PO 25 mg TID PRN Administration Vertigo Ondansetron HCl 4 mg 08/18/19 10:54 Zofran IV Q8H PRN Nausea And Vomiting Senna 8.6 mg 08/18/19 10:57 Senokot PO Q12H PRN Laxative Effect Sodium Chloride 10 ml 08/18/19 22:00 08/25/19 09:56 Sodium Chloride Flush Syringe 10 Ml IV 10 ml BID HAMZAH Administration Sodium Chloride 10 ml 08/18/19 10:54 Sodium Chloride Flush Syringe 10 Ml IV PRN PRN LINE FLUSH Spironolactone 12.5 mg 08/22/19 10:00 08/25/19 09:55 Aldactone PO Not Given QDAY [facility] Nutrition/Malnutrition Assess - Dietary Evaluation Nutrition/Malnutrition Findings: Nutrition Notes Start: 08/23/19 12:27 Freq: Status: Active Protocol: Document 08/23/19 12:27 CT (Rec: 08/23/19 12:37 CT [id number]) Co-Sign 08/23/19 12:27 LP Nutrition Notes Need for Assessment generated from: LOS,Education Initial or Follow up Assessment Current Diagnosis COPD,Diabetes,Sepsis, Hypertension,Heart Failure, Respiratory Failure Other Pertinent Diagnosis Pneu, NSTEMI, Nicotine dependence, AKA Current Diet Cardiac/consistent CHO Labs/Tests K 3.2 Glu 187 Pertinent Medications Lasix Humalog Lantus Height 5 ft 5 in Weight 116.8 kg Usual Body Weight 113.398 kg [place] Body Weight (kg) 56.81 BMI 42.8 Intake Prior to Admission Good Weight Status Morbidly Obese Subjective/Other Information LOS screen. Pt states eating well [employer] and consumed most of her breakfast. Pt states she ate 2 full meals the previous day. Pt stated that she did not want Glucerna, but asked questions on a diabetic diet. Diabetes nutrition education was given. Percent of energy/protein needs met: 98% energy / 100% protein Burn Absent Trauma Absent GI Symptoms None Food Allergy No Current % PO Good (75-100%) Minimum of two criteria No physical signs of malnutrition #1 Nutrition Diagnosis Food and nutrition-related knowledge deficit Etiology no previous knowledge of diabetic diet As Evidenced by Signs and Symptoms pt acceptance of diet education and handout Is patient on ventilator? No Is Patient Ambulatory and/or Out of Bed Yes REE-([facility]-ambulatory/OOB) [ 2299.544 [id number]] Kcal/Kg value to use for calculation 15 Approximate Energy Requirements Using 1752 kcal/Kg Calculation Used for Recommendations Kcal/kg Additional Notes Protein needs: 69-87 g/kg/day (0.8-1 g/kg/day AdBW 86.8 kg) Fluid needs: 1 ml/kcal/day Nutrition Intervention Change Diet Order: Continue cardaic/consitent CHO Teaching Recipient Patient Learning Readiness Good Teaching Methods Discussion,Handout Response to Teaching Verbalize understanding Education Handouts Provided Diabetes Type 2 Nutrition Education Barriers to Learning No Barriers RD phone number provided Yes Patient aware of follow up options Yes Anticipated Discharge Needs: cardiac/consistent CHO Revisit per MD consult or patient Sign Off request:
[2019-08-25] MEDS ORDERED: POTASSIUM CHLORIDE ER 20 MEQ TAB PO ONE (19:00)
--- NOTE | 2019-08-25 19:21 | Progress Note ---
Assessment and Plan Patient alert, awake. Resting in Bed on 2 litres O2. O2 saturation 86%. Recommend to increase O2 to 3 litres. Patient has slight cough. No acute respiratory distress. Obtaining ultrasound of chest to rule out pleural effusion. Patient febrile and has leukocytosis. - Patient Problems (1) Acute respiratory failure with hypoxemia Current Visit: Yes Status: Acute Plan to address problem: O2 3 litres via nasal canula. Albuterol/atrovent aerosol treatments q 6 hours prn for shortness of breath. Brovanna/Budesonide aerosol treatments q 12 hours. Continue ceftrioxone. Continue S/C Heparin. Continue Famotidine. (2) COPD (chronic obstructive pulmonary disease) Current Visit: Yes Status: Acute Qualifiers: Chronic bronchitis type: unspecified Plan to address problem: O2 3 litres via nasal canula. Albuterol/atrovent aerosol treatments q 6 hours prn for shortness of breath. Brovanna/Budesonide aerosol treatments q 12 hours. Continue ceftrioxone. Continue S/C Heparin. Continue Famotidine. PFTs as out patient. (3) HTN (hypertension) Current Visit: Yes Status: Acute Qualifiers: Hypertension type: essential hypertension Qualified Code(s): I10 - Essential (primary) hypertension Plan to address problem: Management as per primary care. (4) History of pulmonary embolism Current Visit: Yes Status: Acute Plan to address problem: Patient is on DVT prophylaxis with heparin (5) NSTEMI (non-ST elevated myocardial infarction) Current Visit: Yes Status: Acute Plan to address problem: Management as per cardiology. (6) Nicotine dependence with withdrawal Current Visit: Yes Status: Acute Qualifiers: Nicotine product type: cigarettes Qualified Code(s): F17.213 - Nicotine dependence, cigarettes, with withdrawal Plan to address problem: Counselled to stop smoking. (7) Pneumonia Current Visit: Yes Status: Acute Qualifiers: Laterality: left Plan to address problem: Patient is on ceftrioxone. Obtaining ultrasound of chest to rule out pleural effusion. Subjective Date of service: 08/25/19 Interval history: Patient alert, awake. Resting in Bed on 2 litres O2. O2 saturation 86%. Recommend to increase O2 to 3 litres. Patient has slight cough. No acute respiratory distress. Obtaining ultrasound of chest to rule out pleural effusion. Patient febrile and has leukocytosis. Objective Vital Signs - 12hr 08/25/19 08/25/19 08/25/19 07:48 08:40 08:42 Temperature Pulse Rate 77 Pulse Rate [ 88 Bilateral Throughout] Pulse Rate [ 87 Left Lower Lobe ] Respiratory Rate Respiratory 18 Rate [Bilateral Throughout] Respiratory 16 Rate [Left Lower Lobe] Blood Pressure 99/41 O2 Sat by Pulse 79 L 95 Oximetry 08/25/19 08/25/19 08/25/19 12:53 13:52 17:06 Temperature 98.1 F Pulse Rate 62 58 L Pulse Rate [ 72 Bilateral Throughout] Pulse Rate [ 70 Left Lower Lobe ] Respiratory 18 Rate Respiratory 18 Rate [Bilateral Throughout] Respiratory 16 Rate [Left Lower Lobe] Blood Pressure 101/46 103/54 O2 Sat by Pulse 87 86 Oximetry Constitutional: no acute distress, alert Eyes: non-icteric ENT: oropharynx moist Neck: supple, no JVD Ascultation: Left: rhonchi, Bilateral: diminished breath sounds Cardiovascular: regular rate and rhythm Gastrointestinal: normoactive bowel sounds, soft, non-tender Integumentary: normal Extremities: no cyanosis, no edema Neurologic: normal mental status, non-focal exam, pupils equal and round Psychiatric: mood appropriate CBC and BMP: 08/25/19 09:03 08/25/19 09:03 ABG, PT/INR, D-dimer: ABG POC ABG pH 7.381 (7.35-7.45) 08/18/19 10:51 POC ABG pCO2 37.2 (35-45) 08/18/19 10:51 POC ABG pO2 59 (80-105) L 08/18/19 10:51 POC ABG HCO3 22.1 (22-26 mml/L) 08/18/19 10:51 POC ABG Total CO2 23 (23-27mmol/L) 08/18/19 10:51 POC ABG O2 Sat 90 08/18/19 10:51 PT/INR, D-dimer PT 14.2 Sec. (12.2-14.9) 08/18/19 21:03 INR 1.11 (0.87-1.13) 08/18/19 21:03 Abnormal lab findings: Abnormal Labs 08/18/19 08/18/19 08/18/19 09:18 09:18 10:12 WBC 35.6 H MCH 26 L RDW 15.8 H Plt Count 563 H [place] % (Auto) [place] # Seg Neutrophils % Monocytes % (Manual) 9.0 H Seg Neutrophils # Seg Neutrophils # Man 23.9 H Lymphocytes # (Manual) 7.5 H Monocytes # (Manual) 3.2 H APTT 21.9 L Heparin Anti-Xa Level POC ABG pO2 Potassium Chloride Carbon Dioxide 19 L BUN 20 H Creatinine Glucose 441 H POC Glucose Lactic Acid Calcium Magnesium Troponin T 0.275 H* NT-Pro-B Natriuret Pep 2047 H Triglycerides 170 H 08/18/19 08/18/19 08/18/19 10:12 10:51 11:09 WBC MCH RDW Plt Count [place] % (Auto) [place] # Seg Neutrophils % Monocytes % (Manual) Seg Neutrophils # Seg Neutrophils # Man Lymphocytes # (Manual) Monocytes # (Manual) APTT Heparin Anti-Xa Level POC ABG pO2 59 L Potassium Chloride Carbon Dioxide BUN Creatinine Glucose POC Glucose Lactic Acid 2.40 H* 2.70 H* Calcium Magnesium Troponin T NT-Pro-B Natriuret Pep Triglycerides 08/18/19 08/18/19 08/18/19 11:55 12:12 12:12 WBC MCH RDW Plt Count [place] % (Auto) [place] # Seg Neutrophils % Monocytes % (Manual) Seg Neutrophils # Seg Neutrophils # Man Lymphocytes # (Manual) Monocytes # (Manual) APTT Heparin Anti-Xa Level POC ABG pO2 Potassium Chloride Carbon Dioxide BUN Creatinine Glucose POC Glucose 393 H Lactic Acid 3.90 H* Calcium Magnesium Troponin T 0.355 H* D NT-Pro-B Natriuret Pep Triglycerides 08/18/19 08/18/19 08/18/19 13:36 14:59 14:59 WBC MCH RDW Plt Count [place] % (Auto) [place] # Seg Neutrophils % Monocytes % (Manual) Seg Neutrophils # Seg Neutrophils # Man Lymphocytes # (Manual) Monocytes # (Manual) APTT Heparin Anti-Xa Level POC ABG pO2 Potassium Chloride Carbon Dioxide BUN Creatinine Glucose POC Glucose 308 H Lactic Acid 2.60 H* Calcium Magnesium Troponin T 0.615 H* D NT-Pro-B Natriuret Pep Triglycerides 08/18/19 08/18/19 08/18/19 16:19 21:03 21:03 WBC MCH RDW Plt Count [place] % (Auto) [place] # Seg Neutrophils % Monocytes % (Manual) Seg Neutrophils # Seg Neutrophils # Man Lymphocytes # (Manual) Monocytes # (Manual) APTT Heparin Anti-Xa Level POC ABG pO2 Potassium Chloride Carbon Dioxide BUN Creatinine Glucose POC Glucose 336 H Lactic Acid 4.90 H* Calcium Magnesium 2.40 H Troponin T NT-Pro-B Natriuret Pep Triglycerides 08/18/19 08/19/19 08/19/19 23:08 00:09 03:53 WBC MCH RDW Plt Count [place] % (Auto) [place] # Seg Neutrophils % Monocytes % (Manual) Seg Neutrophils # Seg Neutrophils # Man Lymphocytes # (Manual) Monocytes # (Manual) APTT Heparin Anti-Xa Level POC ABG pO2 Potassium Chloride Carbon Dioxide BUN Creatinine Glucose POC Glucose 338 H Lactic Acid 2.10 H* 3.40 H* Calcium Magnesium Troponin T NT-Pro-B Natriuret Pep Triglycerides 08/19/19 08/19/19 08/19/19 03:53 08:43 11:11 WBC MCH RDW Plt Count [place] % (Auto) [place] # Seg Neutrophils % Monocytes % (Manual) Seg Neutrophils # Seg Neutrophils # Man Lymphocytes # (Manual) Monocytes # (Manual) APTT Heparin Anti-Xa Level 0.26 L 0.16 L POC ABG pO2 Potassium Chloride Carbon Dioxide BUN Creatinine Glucose POC Glucose 264 H Lactic Acid Calcium Magnesium Troponin T NT-Pro-B Natriuret Pep Triglycerides 08/19/19 08/19/19 08/19/19 11:41 16:51 17:31 WBC MCH RDW Plt Count [place] % (Auto) [place] # Seg Neutrophils % Monocytes % (Manual) Seg Neutrophils # Seg Neutrophils # Man Lymphocytes # (Manual) Monocytes # (Manual) APTT Heparin Anti-Xa Level 0.24 L POC ABG pO2 Potassium Chloride Carbon Dioxide BUN Creatinine Glucose POC Glucose 313 H 323 H Lactic Acid Calcium Magnesium Troponin T NT-Pro-B Natriuret Pep Triglycerides 08/19/19 08/20/19 08/20/19 21:30 05:11 05:11 WBC 17.3 H MCH 27 L RDW 15.4 H Plt Count [place] % (Auto) [place] # 1.1 H Seg Neutrophils % Monocytes % (Manual) Seg Neutrophils # 11.7 H Seg Neutrophils # Man Lymphocytes # (Manual) Monocytes # (Manual) APTT Heparin Anti-Xa Level POC ABG pO2 Potassium Chloride 107.9 H Carbon Dioxide BUN Creatinine 0.4 L Glucose 148 H POC Glucose 411 H Lactic Acid Calcium 8.1 L Magnesium Troponin T NT-Pro-B Natriuret Pep Triglycerides 08/20/19 08/20/19 08/20/19 08:37 12:08 16:09 WBC MCH RDW Plt Count [place] % (Auto) [place] # Seg Neutrophils % Monocytes % (Manual) Seg Neutrophils # Seg Neutrophils # Man Lymphocytes # (Manual) Monocytes # (Manual) APTT Heparin Anti-Xa Level POC ABG pO2 Potassium Chloride Carbon Dioxide BUN Creatinine Glucose POC Glucose 191 H 312 H 229 H Lactic Acid Calcium Magnesium Troponin T NT-Pro-B Natriuret Pep Triglycerides 08/20/19 08/21/19 08/21/19 23:49 05:00 08:03 WBC MCH RDW Plt Count [place] % (Auto) [place] # Seg Neutrophils % Monocytes % (Manual) Seg Neutrophils # Seg Neutrophils # Man Lymphocytes # (Manual) Monocytes # (Manual) APTT Heparin Anti-Xa Level 0.16 L POC ABG pO2 Potassium Chloride Carbon Dioxide BUN Creatinine Glucose POC Glucose 316 H 231 H Lactic Acid Calcium Magnesium Troponin T NT-Pro-B Natriuret Pep Triglycerides 08/21/19 08/21/19 08/21/19 08:37 11:57 13:21 WBC 14.8 H MCH 26 L RDW 15.7 H Plt Count [place] % (Auto) [place] # Seg Neutrophils % Monocytes % (Manual) Seg Neutrophils # 9.5 H Seg Neutrophils # Man Lymphocytes # (Manual) Monocytes # (Manual) APTT Heparin Anti-Xa Level < 0.10 L POC ABG pO2 Potassium Chloride Carbon Dioxide BUN Creatinine Glucose POC Glucose 310 H Lactic Acid Calcium Magnesium Troponin T NT-Pro-B Natriuret Pep Triglycerides 08/21/19 08/21/19 08/22/19 16:32 22:24 04:46 WBC 14.5 H MCH 27 L RDW 15.3 H Plt Count [place] % (Auto) [place] # Seg Neutrophils % 71.8 H Monocytes % (Manual) Seg Neutrophils # 10.4 H Seg Neutrophils # Man Lymphocytes # (Manual) Monocytes # (Manual) APTT Heparin Anti-Xa Level POC ABG pO2 Potassium Chloride Carbon Dioxide BUN Creatinine Glucose POC Glucose 261 H 248 H Lactic Acid Calcium Magnesium Troponin T NT-Pro-B Natriuret Pep Triglycerides 08/22/19 08/22/19 08/22/19 04:46 08:18 11:37 WBC MCH RDW Plt Count [place] % (Auto) [place] # Seg Neutrophils % Monocytes % (Manual) Seg Neutrophils # Seg Neutrophils # Man Lymphocytes # (Manual) Monocytes # (Manual) APTT Heparin Anti-Xa Level POC ABG pO2 Potassium 3.1 L D Chloride Carbon Dioxide BUN 6 L Creatinine 0.4 L Glucose 153 H POC Glucose 155 H 234 H Lactic Acid Calcium 8.1 L Magnesium Troponin T NT-Pro-B Natriuret Pep Triglycerides 08/22/19 08/22/19 08/23/19 16:51 20:38 05:50 WBC 16.2 H MCH 26 L RDW 15.5 H Plt Count [place] % (Auto) [place] # 1.0 H Seg Neutrophils % 72.3 H Monocytes % (Manual) Seg Neutrophils # 11.7 H Seg Neutrophils # Man Lymphocytes # (Manual) Monocytes # (Manual) APTT Heparin Anti-Xa Level POC ABG pO2 Potassium Chloride Carbon Dioxide BUN Creatinine Glucose POC Glucose 294 H 373 H Lactic Acid Calcium Magnesium Troponin T NT-Pro-B Natriuret Pep Triglycerides 08/23/19 08/23/19 08/23/19 05:50 08:56 12:20 WBC MCH RDW Plt Count [place] % (Auto) [place] # Seg Neutrophils % Monocytes % (Manual) Seg Neutrophils # Seg Neutrophils # Man Lymphocytes # (Manual) Monocytes # (Manual) APTT Heparin Anti-Xa Level POC ABG pO2 Potassium 3.2 L Chloride Carbon Dioxide BUN Creatinine 0.4 L Glucose 187 H POC Glucose 240 H 262 H Lactic Acid Calcium Magnesium Troponin T NT-Pro-B Natriuret Pep Triglycerides 08/23/19 08/23/19 08/24/19 15:37 20:23 05:08 WBC 12.7 H MCH 27 L RDW 15.4 H Plt Count [place] % (Auto) 7.5 H [place] # 1.0 H Seg Neutrophils % Monocytes % (Manual) Seg Neutrophils # Seg Neutrophils # Man Lymphocytes # (Manual) Monocytes # (Manual) APTT Heparin Anti-Xa Level POC ABG pO2 Potassium Chloride Carbon Dioxide BUN Creatinine Glucose POC Glucose 407 H 276 H Lactic Acid Calcium Magnesium Troponin T NT-Pro-B Natriuret Pep Triglycerides 08/24/19 08/24/19 08/24/19 05:08 08:11 12:31 WBC MCH RDW Plt Count [place] % (Auto) [place] # Seg Neutrophils % Monocytes % (Manual) Seg Neutrophils # Seg Neutrophils # Man Lymphocytes # (Manual) Monocytes # (Manual) APTT Heparin Anti-Xa Level POC ABG pO2 Potassium 3.2 L Chloride Carbon Dioxide BUN Creatinine 0.5 L Glucose 290 H POC Glucose 214 H 362 H Lactic Acid Calcium Magnesium Troponin T NT-Pro-B Natriuret Pep Triglycerides 08/24/19 08/24/19 08/25/19 16:49 22:39 07:41 WBC MCH RDW Plt Count [place] % (Auto) [place] # Seg Neutrophils % Monocytes % (Manual) Seg Neutrophils # Seg Neutrophils # Man Lymphocytes # (Manual) Monocytes # (Manual) APTT Heparin Anti-Xa Level POC ABG pO2 Potassium Chloride Carbon Dioxide BUN Creatinine Glucose POC Glucose 269 H 317 H 208 H Lactic Acid Calcium Magnesium Troponin T NT-Pro-B Natriuret Pep Triglycerides 08/25/19 08/25/19 08/25/19 09:03 09:03 12:03 WBC 15.6 H MCH 27 L RDW 15.3 H Plt Count [place] % (Auto) [place] # Seg Neutrophils % Monocytes % (Manual) Seg Neutrophils # Seg Neutrophils # Man Lymphocytes # (Manual) Monocytes # (Manual) APTT Heparin Anti-Xa Level POC ABG pO2 Potassium 3.4 L Chloride 97.1 L Carbon Dioxide BUN Creatinine 0.4 L Glucose 260 H POC Glucose 249 H Lactic Acid Calcium Magnesium Troponin T NT-Pro-B Natriuret Pep Triglycerides 08/25/19 16:06 WBC MCH RDW Plt Count [place] % (Auto) [place] # Seg Neutrophils % Monocytes % (Manual) Seg Neutrophils # Seg Neutrophils # Man Lymphocytes # (Manual) Monocytes # (Manual) APTT Heparin Anti-Xa Level POC ABG pO2 Potassium Chloride Carbon Dioxide BUN Creatinine Glucose POC Glucose 253 H Lactic Acid Calcium Magnesium Troponin T NT-Pro-B Natriuret Pep Triglycerides
[2019-08-25] MEDS: ACETAMINOPHEN 325 MG TAB PO PRN (20:42)
[2019-08-25] MEDS ORDERED: INSULIN GLARGINE 100 UNITS/ML SUB-Q SCH (22:00)
[2019-08-26] MEDS: FUROSEMIDE 40 MG TAB PO SCH ×2 (06:35→18:20)
[2019-08-26] MEDS: GABAPENTIN 300 MG CAP PO SCH ×2 (06:36→13:07)
[2019-08-26] MEDS: HEPARIN 5,000 UNIT/1 ML VIAL SUB-Q SCH ×2 (06:46→13:07)
[2019-08-26] MEDS: INSULIN LISPRO 100 UNIT/ML SUB-Q SCH ×3 (08:00→18:21)
[2019-08-26 08:12] LABS: Hematocrit 34.5 % (30.3-42.9); Hemoglobin 11.2 gm/dl (10.1-14.3)
[2019-08-26] MEDS: BUDESONIDE 0.5 MG/2 ML NEBU IH SCH (08:44)
[2019-08-26] MEDS: ARFORMOTEROL 15 MCG/2 ML NEBU IH SCH (08:44)
[2019-08-26] MEDS: IPRATROPIUM/ALBUTEROL SULFATE 3 ML AMPUL.NEB IH SCH ×2 (08:44→13:48)
[2019-08-26] MEDS: DOCUSATE SODIUM 100 MG CAP PO SCH (09:36)
[2019-08-26] MEDS: carvediloL 3.125 MG TAB PO SCH (09:37)
[2019-08-26] MEDS: SPIRONOLACTONE 25 MG TAB PO SCH (09:37)
[2019-08-26 09:38] VITALS: BP 111/67
[2019-08-26] MEDS: LISINOPRIL 5 MG TAB PO SCH (09:38)
[2019-08-26] MEDS: FAMOTIDINE 20 MG TAB PO SCH (09:39)
[2019-08-26] MEDS: cefTRIAXone/NS 2 GM/100 ML 2 GM/100 ML BAG IV SCH (09:39)
--- NOTE | 2019-08-26 11:15 | Progress Note ---
Assessment and Plan Dilated Cardiomyopathy, unknown duration an echocardiogram this admission reveals 4 chamber dilated cardiomyopathy with a decrease LV systolic function, ejection fraction 25-30%. Acute Hypoxic Respiratory failure chest x-ray reports left basilar opacity concerning for pneumonia AMS -resolved Leukocytosis COPD Hypertension Diabetes Obesity PAD s/p left AKA Mild rise of troponin ECG is sinus rhythm, no acute ischemic changes. Recommendations: Advised fluid/sodium restriction. Continue medical therapy for dilated cardiomyopathy. Elective noninvasive ischemic evaluation will be done as an outpatient once respiratory status is stable. Subjective Date of service: 08/26/19 Interval history: Patient is resting in bed comfortably. She denies chest pain and palpitations. No cardiac events reported overnight. Objective Vital Signs Temp Pulse Pulse Pulse Resp Resp Resp 08/26/19 09:38 86 08/26/19 09:37 76 08/26/19 04:45 98.2 F 78 18 08/26/19 04:34 73 08/26/19 00:06 99.1 F 90 18 08/25/19 23:01 08/25/19 22:59 82 84 16 18 08/25/19 21:12 91 H 08/25/19 19:50 94 H 08/25/19 19:31 101.8 F H 18 08/25/19 17:06 58 L 08/25/19 13:52 72 70 18 16 08/25/19 12:53 98.1 F 62 18 BP Pulse Ox 08/26/19 09:38 111/67 08/26/19 09:37 111/67 08/26/19 04:45 89/41 94 08/26/19 04:34 08/26/19 00:06 92/49 95 08/25/19 23:01 97 08/25/19 22:59 08/25/19 21:12 128/61 08/25/19 19:50 08/25/19 19:31 128/61 08/25/19 17:06 103/54 86 08/25/19 13:52 08/25/19 12:53 101/46 87 - Physical Examination General: No Apparent Distress HEENT: Positive: PERRL Neck: Positive: trachea midline Cardiac: Positive: Reg Rate and Rhythm Lungs: Positive: Decreased Breath Sounds Neuro: Positive: Grossly Intact Extremities: Present: Other (left AKA). Absent: edema - Labs and Meds CBC 08/26/19 Range/Units 07:04 Hgb 11.2 (10.1-14.3) gm/dl Hct 34.5 (30.3-42.9) % Plt Count 255 (140-440) K/mm3 Comprehensive Metabolic Panel 08/26/19 Range/Units 07:04 Potassium 3.9 (3.6-5.0) mmol/L
--- NOTE | 2019-08-26 13:23 | Progress Note ---
Assessment and Plan Patient alert, awake. Resting in Bed on 2 litres O2. O2 saturation 92%. Recommend to increase O2 to 3 litres. Patient has slight cough. No acute respiratory distress. Ultrasound of chest reported no pleural effusions. Patient afebrile to day and has leukocytosis. - Patient Problems (1) Acute respiratory failure with hypoxemia Current Visit: Yes Status: Acute Plan to address problem: O2 2 litres via nasal canula. Albuterol/atrovent aerosol treatments q 6 hours prn for shortness of breath. Brovanna/Budesonide aerosol treatments q 12 hours. Continue ceftrioxone. Continue S/C Heparin. Continue Famotidine. (2) COPD (chronic obstructive pulmonary disease) Current Visit: Yes Status: Acute Qualifiers: Chronic bronchitis type: unspecified Plan to address problem: O2 3 litres via nasal canula. Albuterol/atrovent aerosol treatments q 6 hours prn for shortness of breath. Brovanna/Budesonide aerosol treatments q 12 hours. Continue ceftrioxone. Continue S/C Heparin. Continue Famotidine. PFTs as out patient. (3) HTN (hypertension) Current Visit: Yes Status: Acute Qualifiers: Hypertension type: essential hypertension Qualified Code(s): I10 - Essential (primary) hypertension Plan to address problem: Management as per primary care. (4) History of pulmonary embolism Current Visit: Yes Status: Acute Plan to address problem: Patient is on DVT prophylaxis with heparin (5) NSTEMI (non-ST elevated myocardial infarction) Current Visit: Yes Status: Acute Plan to address problem: Management as per cardiology. (6) Nicotine dependence with withdrawal Current Visit: Yes Status: Acute Qualifiers: Nicotine product type: cigarettes Qualified Code(s): F17.213 - Nicotine dependence, cigarettes, with withdrawal Plan to address problem: Counselled to stop smoking. Recommend nicoderm patch. (7) Pneumonia Current Visit: Yes Status: Acute Qualifiers: Laterality: left Plan to address problem: Patient is on ceftrioxone. Subjective Date of service: 08/26/19 Interval history: Patient alert, awake. Resting in Bed on 2 litres O2. O2 saturation 92%. Recommend to increase O2 to 3 litres. Patient has slight cough. No acute respiratory distress. Ultrasound of chest reported no pleural effusions. Patient afebrile to day and has leukocytosis. Objective Vital Signs - 12hr 12/09/19 12/09/19 12/09/19 04:34 04:45 09:37 Temperature 98.2 F Pulse Rate 73 78 76 Respiratory 18 Rate Blood Pressure 89/41 111/67 O2 Sat by Pulse 94 Oximetry 08/26/19 09:38 Temperature Pulse Rate 86 Respiratory Rate Blood Pressure 111/67 O2 Sat by Pulse Oximetry Constitutional: no acute distress, alert Eyes: non-icteric ENT: oropharynx moist Neck: supple, no JVD Ascultation: Left: rhonchi, Bilateral: diminished breath sounds Cardiovascular: regular rate and rhythm Gastrointestinal: normoactive bowel sounds, soft, non-tender Integumentary: normal Extremities: no cyanosis, no edema Neurologic: normal mental status, non-focal exam, pupils equal and round Psychiatric: mood appropriate CBC and BMP: 08/26/19 07:04 08/26/19 07:04 ABG, PT/INR, D-dimer: ABG POC ABG pH 7.381 (7.35-7.45) 08/18/19 10:51 POC ABG pCO2 37.2 (35-45) 08/18/19 10:51 POC ABG pO2 59 (80-105) L 08/18/19 10:51 POC ABG HCO3 22.1 (22-26 mml/L) 08/18/19 10:51 POC ABG Total CO2 23 (23-27mmol/L) 08/18/19 10:51 POC ABG O2 Sat 90 08/18/19 10:51 PT/INR, D-dimer PT 14.2 Sec. (12.2-14.9) 08/18/19 21:03 INR 1.11 (0.87-1.13) 08/18/19 21:03 Abnormal lab findings: Abnormal Labs 08/18/19 08/18/19 08/18/19 09:18 09:18 10:12 WBC 35.6 H MCH 26 L RDW 15.8 H Plt Count 563 H [place] % (Auto) [place] # Seg Neutrophils % Monocytes % (Manual) 9.0 H Seg Neutrophils # Seg Neutrophils # Man 23.9 H Lymphocytes # (Manual) 7.5 H Monocytes # (Manual) 3.2 H APTT 21.9 L Heparin Anti-Xa Level POC ABG pO2 Potassium Chloride Carbon Dioxide 19 L BUN 20 H Creatinine Glucose 441 H POC Glucose Lactic Acid Calcium Magnesium Troponin T 0.275 H* NT-Pro-B Natriuret Pep 2047 H Triglycerides 170 H 08/18/19 08/18/19 08/18/19 10:12 10:51 11:09 WBC MCH RDW Plt Count [place] % (Auto) [place] # Seg Neutrophils % Monocytes % (Manual) Seg Neutrophils # Seg Neutrophils # Man Lymphocytes # (Manual) Monocytes # (Manual) APTT Heparin Anti-Xa Level POC ABG pO2 59 L Potassium Chloride Carbon Dioxide BUN Creatinine Glucose POC Glucose Lactic Acid 2.40 H* 2.70 H* Calcium Magnesium Troponin T NT-Pro-B Natriuret Pep Triglycerides 08/18/19 08/18/19 08/18/19 11:55 12:12 12:12 WBC MCH RDW Plt Count [place] % (Auto) [place] # Seg Neutrophils % Monocytes % (Manual) Seg Neutrophils # Seg Neutrophils # Man Lymphocytes # (Manual) Monocytes # (Manual) APTT Heparin Anti-Xa Level POC ABG pO2 Potassium Chloride Carbon Dioxide BUN Creatinine Glucose POC Glucose 393 H Lactic Acid 3.90 H* Calcium Magnesium Troponin T 0.355 H* D NT-Pro-B Natriuret Pep Triglycerides 08/18/19 08/18/19 08/18/19 13:36 14:59 14:59 WBC MCH RDW Plt Count [place] % (Auto) [place] # Seg Neutrophils % Monocytes % (Manual) Seg Neutrophils # Seg Neutrophils # Man Lymphocytes # (Manual) Monocytes # (Manual) APTT Heparin Anti-Xa Level POC ABG pO2 Potassium Chloride Carbon Dioxide BUN Creatinine Glucose POC Glucose 308 H Lactic Acid 2.60 H* Calcium Magnesium Troponin T 0.615 H* D NT-Pro-B Natriuret Pep Triglycerides 08/18/19 08/18/19 08/18/19 16:19 21:03 21:03 WBC MCH RDW Plt Count [place] % (Auto) [place] # Seg Neutrophils % Monocytes % (Manual) Seg Neutrophils # Seg Neutrophils # Man Lymphocytes # (Manual) Monocytes # (Manual) APTT Heparin Anti-Xa Level POC ABG pO2 Potassium Chloride Carbon Dioxide BUN Creatinine Glucose POC Glucose 336 H Lactic Acid 4.90 H* Calcium Magnesium 2.40 H Troponin T NT-Pro-B Natriuret Pep Triglycerides 08/18/19 08/19/19 08/19/19 23:08 00:09 03:53 WBC MCH RDW Plt Count [place] % (Auto) [place] # Seg Neutrophils % Monocytes % (Manual) Seg Neutrophils # Seg Neutrophils # Man Lymphocytes # (Manual) Monocytes # (Manual) APTT Heparin Anti-Xa Level POC ABG pO2 Potassium Chloride Carbon Dioxide BUN Creatinine Glucose POC Glucose 338 H Lactic Acid 2.10 H* 3.40 H* Calcium Magnesium Troponin T NT-Pro-B Natriuret Pep Triglycerides 08/19/19 08/19/19 08/19/19 03:53 08:43 11:11 WBC MCH RDW Plt Count [place] % (Auto) [place] # Seg Neutrophils % Monocytes % (Manual) Seg Neutrophils # Seg Neutrophils # Man Lymphocytes # (Manual) Monocytes # (Manual) APTT Heparin Anti-Xa Level 0.26 L 0.16 L POC ABG pO2 Potassium Chloride Carbon Dioxide BUN Creatinine Glucose POC Glucose 264 H Lactic Acid Calcium Magnesium Troponin T NT-Pro-B Natriuret Pep Triglycerides 08/19/19 08/19/19 08/19/19 11:41 16:51 17:31 WBC MCH RDW Plt Count [place] % (Auto) [place] # Seg Neutrophils % Monocytes % (Manual) Seg Neutrophils # Seg Neutrophils # Man Lymphocytes # (Manual) Monocytes # (Manual) APTT Heparin Anti-Xa Level 0.24 L POC ABG pO2 Potassium Chloride Carbon Dioxide BUN Creatinine Glucose POC Glucose 313 H 323 H Lactic Acid Calcium Magnesium Troponin T NT-Pro-B Natriuret Pep Triglycerides 08/19/19 08/20/19 08/20/19 21:30 05:11 05:11 WBC 17.3 H MCH 27 L RDW 15.4 H Plt Count [place] % (Auto) [place] # 1.1 H Seg Neutrophils % Monocytes % (Manual) Seg Neutrophils # 11.7 H Seg Neutrophils # Man Lymphocytes # (Manual) Monocytes # (Manual) APTT Heparin Anti-Xa Level POC ABG pO2 Potassium Chloride 107.9 H Carbon Dioxide BUN Creatinine 0.4 L Glucose 148 H POC Glucose 411 H Lactic Acid Calcium 8.1 L Magnesium Troponin T NT-Pro-B Natriuret Pep Triglycerides 08/20/19 08/20/19 08/20/19 08:37 12:08 16:09 WBC MCH RDW Plt Count [place] % (Auto) [place] # Seg Neutrophils % Monocytes % (Manual) Seg Neutrophils # Seg Neutrophils # Man Lymphocytes # (Manual) Monocytes # (Manual) APTT Heparin Anti-Xa Level POC ABG pO2 Potassium Chloride Carbon Dioxide BUN Creatinine Glucose POC Glucose 191 H 312 H 229 H Lactic Acid Calcium Magnesium Troponin T NT-Pro-B Natriuret Pep Triglycerides 08/20/19 08/21/19 08/21/19 23:49 05:00 08:03 WBC MCH RDW Plt Count [place] % (Auto) [place] # Seg Neutrophils % Monocytes % (Manual) Seg Neutrophils # Seg Neutrophils # Man Lymphocytes # (Manual) Monocytes # (Manual) APTT Heparin Anti-Xa Level 0.16 L POC ABG pO2 Potassium Chloride Carbon Dioxide BUN Creatinine Glucose POC Glucose 316 H 231 H Lactic Acid Calcium Magnesium Troponin T NT-Pro-B Natriuret Pep Triglycerides 08/21/19 08/21/19 08/21/19 08:37 11:57 13:21 WBC 14.8 H MCH 26 L RDW 15.7 H Plt Count [place] % (Auto) [place] # Seg Neutrophils % Monocytes % (Manual) Seg Neutrophils # 9.5 H Seg Neutrophils # Man Lymphocytes # (Manual) Monocytes # (Manual) APTT Heparin Anti-Xa Level < 0.10 L POC ABG pO2 Potassium Chloride Carbon Dioxide BUN Creatinine Glucose POC Glucose 310 H Lactic Acid Calcium Magnesium Troponin T NT-Pro-B Natriuret Pep Triglycerides 08/21/19 08/21/19 08/22/19 16:32 22:24 04:46 WBC 14.5 H MCH 27 L RDW 15.3 H Plt Count [place] % (Auto) [place] # Seg Neutrophils % 71.8 H Monocytes % (Manual) Seg Neutrophils # 10.4 H Seg Neutrophils # Man Lymphocytes # (Manual) Monocytes # (Manual) APTT Heparin Anti-Xa Level POC ABG pO2 Potassium Chloride Carbon Dioxide BUN Creatinine Glucose POC Glucose 261 H 248 H Lactic Acid Calcium Magnesium Troponin T NT-Pro-B Natriuret Pep Triglycerides 08/22/19 08/22/19 08/22/19 04:46 08:18 11:37 WBC MCH RDW Plt Count [place] % (Auto) [place] # Seg Neutrophils % Monocytes % (Manual) Seg Neutrophils # Seg Neutrophils # Man Lymphocytes # (Manual) Monocytes # (Manual) APTT Heparin Anti-Xa Level POC ABG pO2 Potassium 3.1 L D Chloride Carbon Dioxide BUN 6 L Creatinine 0.4 L Glucose 153 H POC Glucose 155 H 234 H Lactic Acid Calcium 8.1 L Magnesium Troponin T NT-Pro-B Natriuret Pep Triglycerides 08/22/19 08/22/19 08/23/19 16:51 20:38 05:50 WBC 16.2 H MCH 26 L RDW 15.5 H Plt Count [place] % (Auto) [place] # 1.0 H Seg Neutrophils % 72.3 H Monocytes % (Manual) Seg Neutrophils # 11.7 H Seg Neutrophils # Man Lymphocytes # (Manual) Monocytes # (Manual) APTT Heparin Anti-Xa Level POC ABG pO2 Potassium Chloride Carbon Dioxide BUN Creatinine Glucose POC Glucose 294 H 373 H Lactic Acid Calcium Magnesium Troponin T NT-Pro-B Natriuret Pep Triglycerides 08/23/19 08/23/19 08/23/19 05:50 08:56 12:20 WBC MCH RDW Plt Count [place] % (Auto) [place] # Seg Neutrophils % Monocytes % (Manual) Seg Neutrophils # Seg Neutrophils # Man Lymphocytes # (Manual) Monocytes # (Manual) APTT Heparin Anti-Xa Level POC ABG pO2 Potassium 3.2 L Chloride Carbon Dioxide BUN Creatinine 0.4 L Glucose 187 H POC Glucose 240 H 262 H Lactic Acid Calcium Magnesium Troponin T NT-Pro-B Natriuret Pep Triglycerides 08/23/19 08/23/19 08/24/19 15:37 20:23 05:08 WBC 12.7 H MCH 27 L RDW 15.4 H Plt Count [place] % (Auto) 7.5 H [place] # 1.0 H Seg Neutrophils % Monocytes % (Manual) Seg Neutrophils # Seg Neutrophils # Man Lymphocytes # (Manual) Monocytes # (Manual) APTT Heparin Anti-Xa Level POC ABG pO2 Potassium Chloride Carbon Dioxide BUN Creatinine Glucose POC Glucose 407 H 276 H Lactic Acid Calcium Magnesium Troponin T NT-Pro-B Natriuret Pep Triglycerides 08/24/19 08/24/19 08/24/19 05:08 08:11 12:31 WBC MCH RDW Plt Count [place] % (Auto) [place] # Seg Neutrophils % Monocytes % (Manual) Seg Neutrophils # Seg Neutrophils # Man Lymphocytes # (Manual) Monocytes # (Manual) APTT Heparin Anti-Xa Level POC ABG pO2 Potassium 3.2 L Chloride Carbon Dioxide BUN Creatinine 0.5 L Glucose 290 H POC Glucose 214 H 362 H Lactic Acid Calcium Magnesium Troponin T NT-Pro-B Natriuret Pep Triglycerides 08/24/19 08/24/19 08/25/19 16:49 22:39 07:41 WBC MCH RDW Plt Count [place] % (Auto) [place] # Seg Neutrophils % Monocytes % (Manual) Seg Neutrophils # Seg Neutrophils # Man Lymphocytes # (Manual) Monocytes # (Manual) APTT Heparin Anti-Xa Level POC ABG pO2 Potassium Chloride Carbon Dioxide BUN Creatinine Glucose POC Glucose 269 H 317 H 208 H Lactic Acid Calcium Magnesium Troponin T NT-Pro-B Natriuret Pep Triglycerides 08/25/19 08/25/19 08/25/19 09:03 09:03 12:03 WBC 15.6 H MCH 27 L RDW 15.3 H Plt Count [place] % (Auto) [place] # Seg Neutrophils % Monocytes % (Manual) Seg Neutrophils # Seg Neutrophils # Man Lymphocytes # (Manual) Monocytes # (Manual) APTT Heparin Anti-Xa Level POC ABG pO2 Potassium 3.4 L Chloride 97.1 L Carbon Dioxide BUN Creatinine 0.4 L Glucose 260 H POC Glucose 249 H Lactic Acid Calcium Magnesium Troponin T NT-Pro-B Natriuret Pep Triglycerides 08/25/19 08/25/19 08/26/19 16:06 21:20 07:56 WBC MCH RDW Plt Count [place] % (Auto) [place] # Seg Neutrophils % Monocytes % (Manual) Seg Neutrophils # Seg Neutrophils # Man Lymphocytes # (Manual) Monocytes # (Manual) APTT Heparin Anti-Xa Level POC ABG pO2 Potassium Chloride Carbon Dioxide BUN Creatinine Glucose POC Glucose 253 H 294 H 276 H Lactic Acid Calcium Magnesium Troponin T NT-Pro-B Natriuret Pep Triglycerides 08/26/19 12:01 WBC MCH RDW Plt Count [place] % (Auto) [place] # Seg Neutrophils % Monocytes % (Manual) Seg Neutrophils # Seg Neutrophils # Man Lymphocytes # (Manual) Monocytes # (Manual) APTT Heparin Anti-Xa Level POC ABG pO2 Potassium Chloride Carbon Dioxide BUN Creatinine Glucose POC Glucose 304 H Lactic Acid Calcium Magnesium Troponin T NT-Pro-B Natriuret Pep Triglycerides Additional Studies: Ultrasound of chest done 08/26/19 reported no pleural effusions.
--- NOTE | 2019-08-26 14:50 | Ultrasound Report ---
ULTRASOUND CHEST HISTORY: Pleural effusion FINDINGS: Targeted transabdominal ultrasound was performed on both sides of the chest. No pleural flu id is detected. IMPRESSION: No evidence for pleural effusions. Signer Name: Jairon Yee Jr, MD Signed: 08/26/2019 2:45 PM Workstation Name: [id number]
--- NOTE | 2019-08-26 15:21 | Discharge Summary ---
Providers - Providers Date of Admission: 08/18/19 10:54 Date of discharge: 08/26/19 Attending physician: DION LOZANO 08/18/19 10:24 Consult to Physician [CONS] Urgent Comment: Consulting Provider: RUBENS HOLT Physician Instructions: Reason For Exam: elevated trop 08/23/19 08:03 Consult to Physician [CONS] Routine Comment: Consulting Provider: ROWDY JENSEN Physician Instructions: Reason For Exam: pna 08/23/19 12:00 Consult to Physician [CONS] Routine Comment: Consulting Provider: BERNARDO KING Physician Instructions: Reason For Exam: resp failure [facility] Condition[facility] Hospital course: 54 YO Female with Obesity Hypoventilation Syndrome, HTN, DM, Schizophrenia, Nicotine Dependence, COPD, DVT/PE on Therapeutic Anticoagulation with Eliquis presents to ED for evaluation. She presented with difficulty breathing for 1 day, productive cough with yellow sputum, dypsnea on exertion, dypsnea at rest. EMS notified, and upon arrival the patient was found to be in distress. Pt found to have pulse oximetry of 44% on Room Air. Pt placed on supplemental oxygen and transported to [facility]. She was seen and evaluated in ED and found to have Acute Hypoxemic Respiratory Failure, Pneumonia complicated by Pleural Effusion, Sepsis, COPD. She was admitted to Telemetry and initiated on Sepsis/Pneumonia Protocols. Acute Respiratory failure. Etiology secondary to PNA and COPD. patient noncompliant with BiPAP. Currently on Oxygen at 2 l/min Acute on systolic CHF exac. ECHO reveals EF 25%. Outpatient ischemic evaluation once respiratory status is stable. LLL Pneumonia On Rocephin Left pleural effusion Sepsis. Etiology sec to pneumonia. Patient with worsening leukocytosis. Consulted ID. Toxic metabolic encephalopathy. Ressolving COPD. Cont bronchodilators Hypertension. Home BP meds Diabetes Mellitus II. 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 PT/OT Total time spent on discharge, 34 mins Disposition: [id number] HOME UNDER HOME HLTH - Discharge Diagnoses (1) Acute respiratory failure with hypoxemia Status: Acute (2) COPD (chronic obstructive pulmonary disease) Status: Acute Qualifiers: Chronic bronchitis type: unspecified (3) Diabetes Status: Acute (4) HTN (hypertension) Status: Acute Qualifiers: Hypertension type: essential hypertension Qualified Code(s): I10 - Essential (primary) hypertension (5) History of pulmonary embolism Status: Acute (6) Morbid obesity due to excess calories Status: Acute (7) Pneumonia Status: Acute Qualifiers: Laterality: left (8) Sepsis Status: Acute Qualifiers: Severe sepsis shock status: unspecified (9) HTN (hypertension) Status: Chronic Qualifiers: Hypertension type: essential hypertension Qualified Code(s): I10 - Essential (primary) hypertension (10) Acute systolic (congestive) heart failure Status: Acute Core Measure Documentation - Palliative Care Palliative Care/ Comfort Measures: Not Applicable - Core Measures Any of the following diagnoses?: heart failure - Heart Failure Discharge Requirements LUIS/ARB for LVSD if EF <40%: No Reason for no LUIS/ARB: Hypotension Beta nikhil at discharge: Yes Exam - Constitutional Vitals: Temp Pulse Resp BP Pulse Ox 98.2 F 78 19 111/67 98 08/26/19 04:45 08/26/19 10:00 08/26/19 10:00 08/26/19 09:38 08/26/19 10:00 Plan Activity: no restrictions Diet: low fat, low cholesterol, low salt, diabetic Special Instructions: home health RN Plan of Treatment: 1.Follow up with PCP in 1 week 2.Follow up with Dr. Pereira Pulm in 1 week 3.Follow up with Dr. Pedro, cardiology in 1 week. [facility]Primary Care Provider] - 7 Days Prescriptions: Spironolactone [Aldactone] 12.5 mg PO QDAY #30 tablet cefUROXime [Ceftin] 500 mg PO Q12H 4 Days #16 tablet carvediloL [Coreg] 3.125 mg PO BID #60 tablet
--- NOTE | 2019-08-26 15:21 | Progress Note ---
Assessment and Plan Cultures: 08/18/2019 blood culture: No growth 08/18/2019 MRSA nasal culture: Negative A/P: 54-year-old female with COPD, congestive heart failure, hypertension, DM-2, active smoker, prior left AKA who presented to the emergency room here on 08/18/2019 with complaints of shortness of breath: 1) Sepsis, secondary to left lower lobe pneumonia: US today showed no effusion. Febrile yesterday. Although the WBC count is much improved compared to admission. 2) Diabetes mellitus type 2, uncontrolled 3) Tobacco abuse: recommended cessation 4) Poor dentition: dental f/u as outpatient. Recs: sputum culture and urine pneumococcal Ag not collected continue IV Ceftriaxone 2 gm daily recheck CBC tomorrow AM, if afebrile and improving WBC, anticipate discharge tomorrow Deidra Lopez MD, FACP [facility] C: [phone] O: [phone] F: [phone] Subjective Date of service: 08/26/19 Interval history: Had one episode of fever last night. No fever today. States breathing is much better. Got US of chest done. Objective - Exam Narrative Exam: Physical Exam: Constitutional: Alert, cooperative. No acute distress Head, Ears, Nose: Normocephalic, atraumatic. External ears, nose normal Eyes: Conjunctivae/corneas clear. No icterus. No ptosis. Neck: Supple, no meningeal signs Cardiovascular: S1, S2 normal. Respiratory: L basal crackles improving air entry GI: Soft, non-tender; bowel sounds normal. No peritoneal signs Musculoskeletal: No pedal edema, no cyanosis. Left AKA stump well healed Skin: No rash or abscess Hem/Lymphatic: No palpable cervical or supraclavicular nodes. No lymphangitis Psych: Mood ok. Affect normal Neurological: Awake, alert, oriented. No gross abnormality - Constitutional Vitals: Vital Signs Temp Pulse Resp BP Pulse Ox 98.2 F 78 19 111/67 98 08/26/19 04:45 08/26/19 10:00 08/26/19 10:00 08/26/19 09:38 08/26/19 10:00 Temperature -Last 24 Hours Temperature 98.2 F Temperature 99.1 F Temperature 101.8 F - Labs CBC & Chem 7: 08/26/19 07:04 08/26/19 07:04 Labs: Abnormal lab results 08/25/19 08/25/19 08/26/19 Range/Units 16:06 21:20 07:56 POC Glucose 253 H 294 H 276 H (70-105) 08/26/19 Range/Units 12:01 POC Glucose 304 H (70-105)
== END 2019-08-26 19:16 | disposition home health service (06) | DRG 871 ==
LOC: ED 08:53 → 3A 10:54 → 4A 19:08
PROVIDERS: ADMIT Internal Medicine; ATTEND Internal Medicine
PROC: 4A033R1 Measurement of Arterial Saturation, Peripheral, Percutaneous Approach (ICD-10-PCS; 2019-08-18)
PROC: 3E0234Z Introduction of Serum, Toxoid and Vaccine into Muscle, Percutaneous Approach (ICD-10-PCS; principal; 2019-08-19)
PROC: 5A09357 Assistance with Respiratory Ventilation, Less than 24 Consecutive Hours, Continuous Positive Airway Pressure (ICD-10-PCS; 2019-08-19)
PROC: 5A09357 Assistance with Respiratory Ventilation, Less than 24 Consecutive Hours, Continuous Positive Airway Pressure (ICD-10-PCS; 2019-08-20)
PROC: 5A09357 Assistance with Respiratory Ventilation, Less than 24 Consecutive Hours, Continuous Positive Airway Pressure (ICD-10-PCS; 2019-08-21)
PROC: 5A09357 Assistance with Respiratory Ventilation, Less than 24 Consecutive Hours, Continuous Positive Airway Pressure (ICD-10-PCS; 2019-08-22)
DX: A41.9 Sepsis, unspecified organism (principal); J96.01 Acute respiratory failure with hypoxia; J18.9 Pneumonia, unspecified organism; I21.4 Non-ST elevation (NSTEMI) myocardial infarction; G92 Toxic encephalopathy; J44.1 Chronic obstructive pulmonary disease with (acute) exacerbation; F17.213 Nicotine dependence, cigarettes, with withdrawal; J44.0 Chronic obstructive pulmonary disease with (acute) lower respiratory infection; E66.2 Morbid (severe) obesity with alveolar hypoventilation; Z68.41 Body mass index [BMI] 40.0-44.9, adult; I42.0 Dilated cardiomyopathy; I50.9 Heart failure, unspecified; I11.0 Hypertensive heart disease with heart failure; K21.9 Gastro-esophageal reflux disease without esophagitis; F32.9 Major depressive disorder, single episode, unspecified; E11.65 Type 2 diabetes mellitus with hyperglycemia; E11.51 Type 2 diabetes mellitus with diabetic peripheral angiopathy without gangrene; F20.9 Schizophrenia, unspecified; F41.9 Anxiety disorder, unspecified; D53.9 Nutritional anemia, unspecified; Z86.711 Personal history of pulmonary embolism; Z89.612 Acquired absence of left leg above knee; Z86.718 Personal history of other venous thrombosis and embolism; Z79.01 Long term (current) use of anticoagulants; Z79.4 Long term (current) use of insulin; Z79.899 Other long term (current) drug therapy; Z71.6 Tobacco abuse counseling; Z89.512 Acquired absence of left leg below knee; Z23 Encounter for immunization
CPT/HCPCS: 36415; 71045; 76604; 80048; 80061; 81001; 82140; 82803; 82805; 82962; 83735; 83880; 84132; 84439; 84443; 84484; 85007; 85014; 85018; 85025; 85027; 85049; 85520; 85610; 85730; 87040; 87116; 90686; 90732; 93005; 93010; 93306; 94640; 94644; 94660; 94760; G0378; J0456; J0696; J1644; J1815; J3475; J7030; J7050